=== PATIENT | male | born 1970 | race Asian ===

== ENCOUNTER 2017-04-27 14:20 | Inpatient (IN) | payer OTHER ==
[~2017-04-27] VITALS: Ht 172.7 cm; Wt 90.8 kg
[2017-04-27] VITALS (9 sets, daily range): BP systolic 89–102; BP diastolic 59–75; PULSE 81–92; RESP 12–24; TEMP 98; Ht 172.7 cm; Wt 90.8 kg
[2017-04-27] MEDS ORDERED: NITROGLYCERIN 2% 1 GM OINT PKT TD STA (14:48)
[2017-04-27] MEDS ORDERED: ASPIRIN 81 MG TAB PO STA (14:48)
[2017-04-27 14:55] LABS: ADD SCAN DIFF NO
[2017-04-27 14:58] LABS: BASOPHIL # 0.1 10^3/ul (0.0-0.1); BASOPHILS % 0.5 % (0.0-2.0); EOSINOPHILS % 0.2 % (0.0-7.0); HEMATOCRIT 43.8 % (42.0-52.0); HEMOGLOBIN 15.5 g/dl (14.0-18.0); LYMPHOCYTES # 1.2 10^3/ul (0.8-2.9); LYMPHOCYTES % 11.6 % (15.0-51.0); MEAN CORPUSCULAR HEMOGLOBIN 27.6 pg (29.0-33.0); MEAN CORPUSCULAR HGB CONC 35.4 g/dl (32.0-37.0); MEAN CORPUSCULAR VOLUME 77.9 fl (82.0-101.0); MEAN PLATELET VOLUME 10.5 fl (7.4-10.4); MONOCYTE # 0.8 10^3/ul (0.3-0.9); MONOCYTES % 7.6 % (0.0-11.0); NEUTROPHIL # 7.9 10^3/ul (1.6-7.5); NEUTROPHILS % 79.7 % (39.0-77.0); PLATELET COUNT 330 10^3/UL (140-415); RED BLOOD COUNT 5.62 10^6/ul (4.70-6.10)
[2017-04-27] MEDS ORDERED: NITROGLYCERIN (SL) 0.4 MG TAB SL PRN ×2 (15:00→17:00)
--- NOTE | 2017-04-27 15:14 | RADRPT ---
PROCEDURE: XR Chest. CLINICAL INDICATION: Chest pain TECHNIQUE: Single frontal view of the chest was obtained COMPARISON: None FINDINGS: The heart is enlarged. The thoracic aorta is calcified. There is a left-sided AICD in place. There is mild pulmonary vascular congestion. There is no pleural effusion or pneumothorax. RPTAT: AA IMPRESSION: Mild cardiomegaly. Mild pulmonary vascular congestion. Calcified aorta consistent with atherosclerotic disease. .Efraín Trimble MD, MD Date Time Electronically viewed and signed by .Efraín Trimble MD, MD on 04/27/2017 15:14 .S/
[2017-04-27 15:22] LABS: CALCIUM 9.6 mg/dl (8.4-10.2); CREATININE 0.9 mg/dl (0.61-1.24); POTASSIUM 3.2 mmol/L (3.5-5.1)
[2017-04-27] MEDS ORDERED: AMIO200T2 PO (15:22)
[2017-04-27] MEDS ORDERED: FER325 PO (15:22)
[2017-04-27] MEDS ORDERED: GLIP5TAB13 PO (15:23)
[2017-04-27] MEDS ORDERED: POTASSIUM CHLORIDE (SR) 20 MEQ TAB PO STA (15:31)
[2017-04-27] MEDS ORDERED: INSULIN LISPRO 100 UNIT/ML VIAL SC STA (15:31)
[2017-04-27 15:34] LABS: INR 1.24; PROTIME 15.7 Sec (12.2-14.2); PT RATIO 1.2
[2017-04-27 15:35] LABS: TROPONIN-I 2.77 ng/ml (0.00-0.12)
[2017-04-27] MEDS ORDERED: ERGO500037 PO (15:36)
[2017-04-27] MEDS ORDERED: FURO40TA4 PO (15:37)
[2017-04-27] MEDS ORDERED: ALDS PO (15:37)
[2017-04-27] MEDS ORDERED: ACET250T22 PO (15:37)
[2017-04-27] MEDS ORDERED: POTA20TA15 PO (15:38)
[2017-04-27] MEDS ORDERED: METO2.5T12 PO (15:38)
[2017-04-27] MEDS ORDERED: METF500T4 PO (15:39)
[2017-04-27] MEDS ORDERED: CARV3.1260 PO (15:39)
[2017-04-27] MEDS ORDERED: DABI150C PO (15:40)
[2017-04-27] MEDS ORDERED: ONDANSETRON 4 MG INJ IV PRN ×2 (16:00→17:00)
[2017-04-27] MEDS ORDERED: ACETAMINOPHEN 325 MG TAB PO PRN ×2 (16:00→17:00)
[2017-04-27] MEDS ORDERED: MIDAZOLAM 1 MG/ML 2 ML INJ ONE ×2 (16:03→17:17)
[2017-04-27] MEDS ORDERED: LIDOCAINE 1% (MDV) 20 ML INJ ONE (16:03)
[2017-04-27] MEDS ORDERED: IODIXANOL LOCM 50 ML BTL ONE (16:03)
[2017-04-27] MEDS ORDERED: IODIXANOL LOCM 100 ML BTL ONE ×3 (16:03→21:26)
[2017-04-27] MEDS ORDERED: HEPARIN 1000 UNITS/ML 10 ML INJ ONE ×3 (16:03→19:57)
[2017-04-27] MEDS ORDERED: FENTAnyl 50 MCG/ML VIAL ONE (16:03)
[2017-04-27] MEDS ORDERED: NITROGLYCERIN (IC) 100 MCG/ML INJ ONE (16:04)
[2017-04-27] MEDS ORDERED: VERAPAMIL 5 MG INJ ONE ×2 (16:04→18:39)
[2017-04-27] MEDS ORDERED: IOHEXOL 350MG/ML 50 ML BTL ONE (16:15)
--- NOTE | 2017-04-27 16:42 | ERA ---
ER Documentation Chief Complaint Date/Time DATE: 04/27/17 TIME: 16:41 Chief Complaint palpitations with cp x couple of hours HPI Patient is a 46-year-old male with coronary disease, hypertension, and diabetes who presents with palpitations and shortness of breath. The patient said that he felt symptoms in the left side of his chest but said that he did not have pain and is not feeling it now. He said that he started 2 weeks ago with discomfort and shortness of breath with mild exertion that would last 10-15 minutes and then go away. However recently it started lasting 2 hours. The patient walked into the emergency department. He does not currently have a primary doctor. His director of construction is Dr. Foster. ROS All systems reviewed and are negative except as per history of present illness. Medications Home Meds Reported Medications Dabigatran Etexilate Mesylate* (Pradaxa*) 150 Mg Capsule, 150 MG PO BID, CAP 04/27/17 Metformin Hcl* (Metformin Hcl*) 500 Mg Tablet, 500 MG PO WITH BREAKFAST DINNE, # 60 TAB 04/27/17 Carvedilol* (Carvedilol*) 3.125 Mg Tablet, 3.125 MG PO BID, #60 TAB 04/27/17 Potassium Chloride* (K-Dur*) 20 Meq Tab.prt.sr, 20 MEQ PO BID, TAB.SA 04/27/17 Metolazone* (Metolazone*) 2.5 Mg Tablet, 2.5 MG PO BID, TAB 04/27/17 Furosemide* (Furosemide*) 40 Mg Tablet, 40 MG PO BID, TAB 04/27/17 Acetazolamide* (Acetazolamide*) 250 Mg Tablet, 250 MG PO BID, #60 TAB 04/27/17 Spironolactone* (Aldactone*) 5 Mg/Ml (COMPOUNDED) Susp, 5 MG PO BID for 30 Days , BOTTLE (COMPOUNDED) 04/27/17 Ergocalciferol (Vitamin D2) (VITAMIN D2) 50,000 Unit Capsule, 85852 UNIT PO Q7D , CAP PATENT TAKE Q TUESDAY OR Tuesday04/27/17 Glipizide* (Glipizide*) 5 Mg Tablet, 5 MG PO AC BREAKFAST, TAB 04/27/17 Ferrous Sulfate* (Ferrous Sulfate*) 325 Mg Tabec, 325 MG PO BID, TAB 04/27/17 Amiodarone Hcl* (Amiodarone Hcl*) 200 Mg Tablet, 200 MG PO DAILY, #30 TAB 04/27/17 Allergies Allergies: Uncoded Allergies: UNKNOWN ANTIBIOTIC (Allergy, Intermediate, 04/27/17) PMhx/Soc History of Surgery: Yes (CABG,ABLATION,PACEMAKER) Anesthesia Reaction: No Hx Neurological Disorder: No Hx Respiratory Disorders: No Hx Cardiac Disorders: Yes (HTN) Hx Psychiatric Problems: No Hx Miscellaneous Medical Probl: Yes (DM) Hx Alcohol Use: No Hx Substance Use: No Hx Tobacco Use: Yes (16 yrs ago) Smoking Status: Former smoker FmHx Family History: diabetes Physical Exam Vitals Vital Signs Date Time Temp Pulse Resp B/P Pulse Ox O2 Delivery O2 Flow Rate FiO2 04/27/17 16:30 83 23 73/54 100 Nasal Cannula 2.0 04/27/17 16:11 82 23 57/44 100 Nasal Cannula 2.0 04/27/17 16:08 98.0 82 23 76/54 100 Nasal Cannula 2.0 04/27/17 14:59 Nasal Cannula 2 04/27/17 14:24 98.1 93 20 108/71 97 Physical Exam Const: No acute distress Head: Atraumatic Eyes: Normal Conjunctiva ENT: Normal External Ears, Nose and Mouth. Neck: Full range of motion..~ No meningismus. Resp: Clear to auscultation bilaterally Cardio: Regular rate and rhythm, no murmurs Abd: Soft, non tender, non distended. Normal bowel sounds Skin: No petechiae or rashes Back: No midline or flank tenderness Ext: No cyanosis, or edema Neur: Awake and alert Psych: Normal Mood and Affect Result Diagram: 04/27/17 1450 04/27/17 1450 Results 24 hrs Laboratory Tests Test 04/27/17 14:50 04/27/17 16:08 White Blood Count 10.010^3/ul Red Blood Count 5.6210^6/ul Hemoglobin 15.5g/dl Hematocrit 43.8% Mean Corpuscular Volume 77.9fl Mean Corpuscular Hemoglobin 27.6pg Mean Corpuscular Hemoglobin Concent 35.4g/dl Red Cell Distribution Width 13.0% Platelet Count 53775^3/UL Mean Platelet Volume 10.5fl Neutrophils % 79.7% Lymphocytes % 11.6% Monocytes % 7.6% Eosinophils % 0.2% Basophils % 0.5% Nucleated Red Blood Cells % 0.0/100WBC Neutrophils # 7.910^3/ul Lymphocytes # 1.210^3/ul Monocytes # 0.810^3/ul Eosinophils # 0.010^3/ul Basophils # 0.110^3/ul Nucleated Red Blood Cells # 0.010^3/ul Prothrombin Time 15.7Sec Prothrombin Time Ratio 1.2 INR International Normalized Ratio 1.24 Activated Partial Thromboplast Time 49.0Sec Sodium Level 122mmol/L Potassium Level 3.2mmol/L Chloride Level 82mmol/L Carbon Dioxide Level 27mmol/L Anion Gap 16 Blood Urea Nitrogen 23mg/dl Creatinine 0.90mg/dl Glucose Level 463mg/dl Calcium Level 9.6mg/dl Troponin I 2.770ng/ml Bedside Glucose 344mg/dL Current Medications Medications (Trade) Dose Ordered Sig/Genna Route PRN Reason Start Time Stop Time Status Last Admin Dose Admin Aspirin (Aspirin) 162 mg ONCE STAT PO 04/27/17 14:48 04/27/17 14:49 DC 04/27/17 14:52 Nitroglycerin (Nitroglycerin 2% Oint) 1 inch ONCE STAT TD 04/27/17 14:48 04/27/17 14:49 DC 04/27/17 14:52 Nitroglycerin (Nitroglycerin (Sl Tab) 0.4 Mg) 1 tab Q5M UP TO 3 DOSES PRN SL CHEST PAIN 04/27/17 15:00 Insulin Human Lispro (Humalog) 15 unit ONCE STAT SC 04/27/17 15:31 04/27/17 15:32 DC 04/27/17 16:08 Potassium Chloride (Klor-Con 20) 40 meq ONCE STAT PO 04/27/17 15:31 04/27/17 15:32 DC 04/27/17 16:10 Ondansetron HCl (Zofran Inj) 4 mg ER BRIDGE PRN IV NAUSEA AND/OR VOMITING 04/27/17 16:00 04/28/17 15:59 Acetaminophen 650 mg 650 mg ER BRIDGE PRN PO MILD PAIN/FEVER 04/27/17 16:00 04/28/17 15:59 Sodium Chloride 500 ml @ 500 mls/hr Q1H ONCE IV 04/27/17 17:00 04/27/17 17:59 UNV Sodium Chloride (NS) 1,000 ml @ 75 mls/hr [id number] IV 04/27/17 17:00 04/28/17 06:19 UNV Atorvastatin Calcium (Lipitor) 40 mg HS PO 04/27/17 21:00 UNV Aspirin 81 mg 81 mg DAILY PO 04/28/17 09:00 UNV Sodium Chloride 1,000 ml @ 1,000 mls/hr Q1H ONCE IV 04/27/17 17:00 04/27/17 17:59 UNV Sodium Chloride (NS) 1,000 ml @ 1,000 mls/hr Q1H STAT IV 04/27/17 16:48 04/27/17 17:47 Procedures/MDM EKG #1 read by me: Rate/Rhythm: Regular rate and rhythm at a normal rate Intervals: Normal Impression: ST elevations in aVR and V1, depression in lead I EKG #2 read by me: Rate/Rhythm: Regular rate and rhythm at a normal rate Intervals: Normal Impression: ST elevations in aVR and V1, depression in lead I PROCEDURE: XR Chest. CLINICAL INDICATION: Chest pain TECHNIQUE: Single frontal view of the chest was obtained COMPARISON: None FINDINGS: The heart is enlarged. The thoracic aorta is calcified. There is a left-sided AICD in place. There is mild pulmonary vascular congestion. There is no pleural effusion or pneumothorax. RPTAT: AA IMPRESSION: Mild cardiomegaly. Mild pulmonary vascular congestion. Calcified aorta consistent with atherosclerotic disease. .Efraín Trimble MD, MD Date Time Electronically viewed and signed by .Efraín Trimble MD, on 04/27/2017 15: 14 Patient is a 46-year-old male with multiple cardiac risk factors who presents with symptoms consistent with unstable angina. The patient had an EKG done at 1441 and a code STEMI was called upon reviewing this EKG. I spoke with Dr. Jiménez at 1446 and showed him the EKG. We spoke at 1450 and decided together to cancel the code STEMI as the EKG is not entirely consistent with STEMI and the patient is not having any active chest pain at this time. Dr. Foster was actually in the emergency department at the time and recognized the patient is at his patient and he will consult on the patient as well. The patient was found to have a troponin that was elevated at 2.[address] Foster wanted to take the patient to the cardiac Bearing Inspector but unfortunately the patient took his Pradaxa today and at this point the risks outweigh the benefits. He will plan on going to the cardiac Bearing Inspector tomorrow. The patient was given aspirin and nitroglycerin. He had a drop in his blood pressure so nitroglycerin was removed and 1 L of normal saline was given. The patient has hyperglycemia but no diabetic ketoacidosis at this time. He was given 15 units of subcutaneous Humalog. The patient was found to have hypokalemia with a potassium of 3.2 and was given potassium by mouth. He has hyponatremia with a sodium of 122. The patient will be admitted to the care of Dr. Torres as he has [employer] insurance. The patient will be admitted to the intensive care unit. Critical Care: Time: 40 minutes excluding all billable procedures. Treatments/Evaluations: Close monitoring and treatment of unstable vital signs, cardiorespiratory, and neurologic status, while maintaining tight balance of fluid, respiratory, and cardiac interventions. Departure Diagnosis: Primary Impression: NSTEMI (non-ST elevated myocardial infarction) Additional Impressions: Palpitations Hyponatremia Chest pain Qualified Code: I20.9 - Chest pain due to myocardial ischemia, unspecified ischemic chest pain type Hypokalemia Condition: Critical FREDY GILLETTE MD Apr 27, 2017 16:42
[2017-04-27] MEDS ORDERED: SOD CHLORIDE 0.9% 1,000 ML IV SCH ×2 (16:47→17:00)
[2017-04-27] MEDS ORDERED: SOD CHLORIDE 0.9% 1,000 ML IV STA (16:48)
--- NOTE | 2017-04-27 16:54 | CONS ---
Date/Time of Note Date/Time of Note DATE: 04/27/17 TIME: 16:42 Assessment/Plan Assessment/Plan Additional Assessment/Plan Non-ST elevation TX Coronary artery disease with history of CABG Ischemic cardiomyopathy with ejection fraction 35% Diabetes, uncontrolled Hypokalemia Atrial fibrillation/flutter, paroxysmal, on anticoagulation -Patient with initially chest pain with exertion that was worsening today. Troponins are elevated. Patient is currently chest pain-free. Patient did take Pradaxa this morning. Given patient on anticoagulation and currently chest pain-free, would wait until tomorrow to proceed with cardiac catheterization. Would recommend aggressive diabetes management, IV fluids as able to tolerate given evidence of hyperglycemia, hypovolemia and abnormal electrolytes. Would continue aspirin and statin therapy. Will start Plavix. Consultation Date/Type/Reason Admit Date/Time Type of Consultation: cv Reason for Consultation Chest pressure and elevated troponin Hx of Present Illness This is a 46-year-old male with past medical history of coronary artery disease status post bypass, paroxysmal atrial flutter status post ablation, ischemic cardiomyopathy with ejection fraction 35% who presents to the emergency room secondary to exertional chest pain off and on over the past few days. Symptoms worsen today so he came to the emergency room for evaluation and care. After having nitroglycerin placed, he denies any further chest pain or shortness of breath. Denies any dizziness or lightheadedness. Denies any abdominal pain. 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 Exam/Review of Systems Vital Signs Vitals Vital Signs Date Time Temp Pulse Resp B/P Pulse Ox O2 Delivery O2 Flow Rate FiO2 04/27/17 16:30 83 23 73/54 100 Nasal Cannula 2.0 04/27/17 16:08 98.0 Exam No apparent distress Constitutional: alert, oriented Head: normocephalic Neck: supple Respiratory: clear to auscultation, normal air movement Cardiovascular: other (S1-S2 heard), regular rate and rhythm Gastrointestinal: bowel sounds, non-tender, soft Extremities: other (No significant edema) Results Result Diagram: 04/27/17 1450 04/27/17 1450 Results 24 hrs Laboratory Tests Test 04/27/17 14:50 04/27/17 16:08 White Blood Count 10.0 Red Blood Count 5.62 Hemoglobin 15.5 Hematocrit 43.8 Mean Corpuscular Volume 77.9 L Mean Corpuscular Hemoglobin 27.6 L Mean Corpuscular Hemoglobin Concent 35.4 Red Cell Distribution Width 13.0 Platelet Count 330 Mean Platelet Volume 10.5 H Neutrophils % 79.7 H Lymphocytes % 11.6 L Monocytes % 7.6 Eosinophils % 0.2 Basophils % 0.5 Nucleated Red Blood Cells % 0.0 Neutrophils # 7.9 H Lymphocytes # 1.2 Monocytes # 0.8 Eosinophils # 0.0 Basophils # 0.1 Nucleated Red Blood Cells # 0.0 Prothrombin Time 15.7 H Prothrombin Time Ratio 1.2 INR International Normalized Ratio 1.24 Activated Partial Thromboplast Time 49.0 H Sodium Level 122 L Potassium Level 3.2 L Chloride Level 82 L Carbon Dioxide Level 27 Anion Gap 16 Blood Urea Nitrogen 23 H Creatinine 0.90 Glucose Level 463 *H Calcium Level 9.6 Troponin I 2.770 *H Bedside Glucose 344 H Procedures Procedures ECG demonstrates sinus rhythm at 90 bpm, lateral ST depressions Zaire Foster DO Apr 27, 2017 16:54
[2017-04-27] MEDS ORDERED: SOD CHLORIDE 0.9% 500 ML IV ONE (17:00)
[2017-04-27] MEDS ORDERED: MAGNESIUM HYDROXIDE 30ML CUP PO PRN (17:00)
[2017-04-27] MEDS ORDERED: NACL 0.9% 3 ML SYG IV SCH (17:00)
[2017-04-27] MEDS ORDERED: BISACODYL 10 MG SUPP PR PRN (17:00)
[2017-04-27] MEDS ORDERED: SOD CHLORIDE 0.9% 1,000 ML IV ONE (17:00)
[2017-04-27] MEDS ORDERED: ACCU-CHEK XX SCH (17:00)
[2017-04-27] MEDS ORDERED: INSULIN HUMAN REGULAR 100 UNIT in SOD CHLORIDE 0.9% 99 ML IV SCH (17:00)
[2017-04-27] MEDS ORDERED: DEXTROSE 50% 50 ML SYRINGE IV PRN ×4 (17:00→23:45)
[2017-04-27] MEDS ORDERED: Discontinue all previous diabetes medication and insulin orders. XX ONE (17:00)
[2017-04-27] MEDS ORDERED: Treatment of Hypoglycemia: XX SCH (17:00)
[2017-04-27] MEDS ORDERED: DOCUSATE SODIUM 100 MG CAP PO PRN (17:00)
[2017-04-27] MEDS: morphine 2 MG INJ IV PRN ×3 (17:15→23:56)
[2017-04-27] MEDS ORDERED: CLOPIDOGREL 300 MG TAB ONE (17:43)
--- NOTE | 2017-04-27 20:09 | HP ---
DATE OF ADMISSION: 04/27/2017 CREW MESS ATTENDANT: Dr. Zaire Foster from cardiology. CHIEF COMPLAINT ON ADMISSION: Palpitations. HISTORY OF PRESENT ILLNESS: This is a 46-year-old male with a history of coronary artery disease, s tatus post stenting at age 31, followed by bypass surgery at age 41, and just last year had a pacema ker placed, followed by Dr. Foster's group as an outpatient, [facility] for the past couple of weeks. The patient reports that at the [facility] it would last a few minutes and go away and then it started being sustained and today was whitmore stained up to 2 hours of palpitations and discomfort. In the emergency department, he was evaluated . He had a first EKG. There was a questionable STEMI. The STEMI code was called and subsequently canceled, as his EKG was equivocal. Subsequently, his troponin came back elevated at 2.77. He was also noted to be hyperglycemic with a glucose of 463. Sodium of 122. The patient is diabetic. It is unclear how compliant, he is with his medications. The patient was seen by Dr. Foster who evalua andrey him. At first, he was going to take him to the dairy and food laboratory assistant; however, the patient reported that he did take Pradaxa this morning. He was chest pain free and much more comfortable with systolic blood pressures in the upper 100s. At that time, the angiogram was canceled due to the fact that he took Pradaxa and rescheduled for tomorrow. However, during his ER course, the patient started being hyp otensive. His nitro paste was removed at that time. He remained asymptomatic for a while, then sta rted complaining of chest pain and chest pressure, left-sided, radiating down his arm, and the sensa tion of palpitations also. Another EKG was done stat and the patient is found to be in ST elevation UT a little more clearly on this second EKG. A STEMI code was activated. The patient is in the ca th lab currently. He is receiving 2 liters normal saline bolus for hypotension. Blood pressure in the 70s. He will be started on insulin drip periprocedure for blood sugar control. Therefore, he w ill be in the ICU. The patient does have significant cardiac disease and now with acute UT. There is a possibility he may need a balloon pump. He is currently critically ill. He will be admitted t o the intensive care unit post-procedure. ALLERGIES: THE PATIENT REPORTED THAT HE WAS ALLERGIC TO AN ANTIBIOTIC, BUT WAS NOT ABLE TO TELL US WHICH ONE. PAST MEDICAL HISTORY: 1. Severe coronary artery disease, status post stenting at age 31, status post bypass surgery at ag e 41, status post pacer last year. 2. Ischemic cardiomyopathy, ejection fraction 35%. 3. Diabetes mellitus, uncontrolled. 4. Paroxysmal atrial fibrillation, atrial flutter on anticoagulation with Pradaxa. 5. Hyperlipidemia. 6. Hypertension. PAST SURGICAL HISTORY: 1. Status post atrial flutter ablation. 2. Status post angioplasty in the past. 3. Status post coronary bypass surgery. 4. Status post pacemaker placement 1 year ago. SOCIAL HISTORY: The patient is a former smoker. He no longer smokes or drinks alcohol. He works [employer]. OUTPATIENT MEDICATIONS: 1. Pradaxa 150 mg p.o. b.i.d. 2. Ferrous sulfate 325 mg p.o. b.i.d. 3. Amiodarone 200 mg p.o. daily. 4. Carvedilol 3.125 mg p.o. b.i.d. 5. Aldactone 5 mg p.o. b.i.d. 6. Furosemide 40 mg p.o. b.i.d. 7. Metolazone 2.5 mg p.o. b.i.d. 8. K-Dur 20 mg p.o. b.i.d. 9. Acetazolamide 250 mg p.o. b.i.d. 10. Glipizide 5 mg p.o. q.a.c. with breakfast. 11. Metformin 500 mg p.o. b.i.d. 12. Vitamin D2 at 50,000 units q.7 days. PHYSICAL EXAMINATION: VITAL SIGNS: Temperature is 98.0, heart rate of 89, sinus rhythm; respiratory rate of 16, blood pre ssure 72/54, the patient is saturating 100% on 2 liters nasal cannula. GENERAL: He is alert and oriented x4. He is in mild distress, as he is having chest pain and in a Trendelenburg position, which is not comfortable. HEENT: Pupils are equally round and reactive to light. Extraocular muscles are intact. Anicteric sclerae. NECK: No JVD, no thyromegaly noted. HEART: Regular rate and rhythm. No murmur, rubs, or gallops. LUNGS: Clear to auscultation bilaterally. ABDOMEN: Soft, nontender, nondistended. Bowel sounds are present. EXTREMITIES: No edema, clubbing, or cyanosis. NEUROLOGIC: Grossly intact. Moving all 4 extremities. LABORATORY DATA: White blood cell count is 10.0, hemoglobin 15.5, hematocrit 42.8, platelet count 3 30. Chemistry with a sodium of 122, potassium of 3.2, chloride 82, bicarbonate 27, BUN 23, creatini ne 0.90, glucose was 463 down to 344, calcium of 9.6. Troponin 2.77. INR is 1.22. EKG: Second EK G consistent with ST elevation UT. RADIOLOGICAL DATA: Chest x-ray shows mild cardiomegaly, mild pulmonary vascular congestion. ASSESSMENT AND PLAN: This is a 46-year-old male with: 1. ST elevation myocardial infarction, currently slightly hemodynamically unstable with hypotension . Therefore, the patient is going to the dairy and food laboratory assistant right away. He is at a bleeding risk because he did take Pradaxa this morning; however, at this point, it is emergency intervention. He will be adm itted to the intensive care unit post-procedure. He is going to the dairy and food laboratory assistant with Dr. Foster. 2. Diabetes mellitus with uncontrolled blood sugar. Will check hemoglobin A1c. Insulin drip has b een ordered for periprocedure. Further adjustment will be done once the patient is more stable. 3. Hypertension. Currently, he is hypotensive. Therefore, all his diuretics are discontinued and he is receiving IV fluids currently for feared cardiogenic shock. 4. Hyperlipidemia. Check fasting lipid panel in a.m. and resume statin therapy. 5. Paroxysmal atrial fibrillation. He is on amiodarone. We will reassess post-procedure. Hold Pr adaxa for now. 6. Ischemic cardiomyopathy with ejection fraction of 35%. Holding all diuretics. Will reassess ej ection fraction post-procedure. Resume diuretics when needed and any additional medication will be also resumed once his blood pressure is stable. 7. Hypokalemia. Has been repleted in the emergency department. Repeat BMP pending. 8. Hyponatremia with corrected blood sugar of approximately 127. The patient is also hypovolemic. Continue IV fluids. Will put him on insulin drip for blood sugar control and monitor his sodium le sebas along with his renal function. 9. Prophylaxis: Sequential compression devices to lower extremities for deep vein thrombosis proph ylaxis. Pepcid for gastrointestinal prophylaxis. DISPOSITION: The patient is on his way to the dairy and food laboratory assistant at this point for emergent angiogram and ang ioplasty. Dictated By: SILAS CASTRO/ELIAS Conf#: [id number] DID#: [id number]
[2017-04-27] MEDS: FERROUS SULFATE (EC) 325 MG TAB PO SCH (21:00)
[2017-04-27] MEDS ORDERED: ATORVASTATIN 40 MG TAB PO SCH (21:00)
[2017-04-27] MEDS ORDERED: FUROSEMIDE 40 MG INJ ONE (21:41)
[2017-04-27] MEDS: NORepinephrine 8MG/250 ML (PMX 250 ML IV SCH (22:00)
[2017-04-27 22:02] LABS: CALCIUM 7.6 mg/dl (8.4-10.2); CREATININE 0.63 mg/dl (0.61-1.24); POTASSIUM 2.8 mmol/L (3.5-5.1)
[2017-04-27 22:04] LABS: CK-MB 2.31 ng/ml (0.0-2.4); TROPONIN-I 2.58 ng/ml (0.00-0.12)
--- NOTE | 2017-04-27 22:08 | CARRPT ---
DATE OF PROCEDURE: 04/27/2017 PROCEDURES: 1. Left heart catheterization. 2. Right and left coronary angiogram as well as bypass grafts. 3. Interpretation and supervision of right and left coronary angiogram as well as bypass grafts. 4. Left subclavian angiogram. 5. Left carotid angiogram. 6. Complex endovascular procedure of a chronic total occlusion of the left subclavian with balloon angioplasty and stenting with a 7 x 27 [employer] balloon expandable stent. 7. Left ventricular pressure measurements. 8. Left radial artery access, right femoral artery access, right femoral vein access. PATIENT HISTORY: This is a 46-year-old male with history of coronary artery disease and CABG, who p resents with non-ST elevation NE, hypotension, and chest pain. FINDINGS: HEMODYNAMICS: 1. LV pressure was 116/25 with an EDP of 33. 2. Aortic on pullback was 109/71. CORONARY ANATOMY: 1. Left main is occluded at the ostium. 2. RCA is a medium caliber vessel and appears nondominant. There is a proximal 80% and then a mid 100% subtotal occlusion with collaterals going to the LAD from the RCA. 3. BARRERA to LAD is patent with no significant disease. 4. LAD is a medium caliber vessel and occluded at the ostium. The mid to distal vessel is seen via the BARRERA injection with 20% distal stenosis. 5. Circumflex is a dominant vessel and seen via the saphenous vein injection. It was occluded at t he ostium at the left main. The distal vessel demonstrates an AV groove circumflex with 90% mid julee nosis. Obtuse marginals are patent with 30% diffuse stenosis. 6. Saphenous vein graft to the left PDA is patent with no significant disease. 7. Left subclavian is occluded at the ostium. Collaterals are seen feeding the proximal subclavian from the left carotid. 8. Left carotid artery is patent. Feeding collaterals to the left subclavian. DESCRIPTION OF PROCEDURE: The patient was brought to the engineer [facility] laboratory after informed consent. The archie ent with active chest pain and hypotension. Initially, a 6-Jordanian sheath with ultrasound guidance w as used to the right femoral artery. Given the patient's hypotension, we placed a 5-Jordanian femoral vein sheath and started IV Levophed for blood pressure assistance. We initially used a 6-Jordanian JL4 catheter to engage the left main, which demonstrated 100% occlusion of the left main. We next used a 6-Jordanian JR4 catheter and engaged the RCA and angiogram was performed. We next engaged the left subclavian, which demonstrated it was 100% occluded. We next engaged the left carotid, which demons trated that it was feeding collaterals the subclavian and the BARRERA was patent. The occlusion of the left subclavian was proximal to the BARRERA takeoff. We next attempted to use an LCB catheter to enga ge the saphenous vein graft, but unsuccessful. We next used a pigtail catheter and did an abdominal aortic root shot, which demonstrated a patent saphenous vein graft going to the left PDA. We next used a 6-Jordanian JR4 catheter to engage the saphenous vein graft and angiogram was performed. We nex t got left radial access and a 6-Jordanian sheath was placed. A JR4 catheter was taken up to the subcl susana occlusion. This did demonstrate that subclavian was occluded, as mentioned previously, with t he occlusion being proximal to the BARRERA takeoff. There was possible evidence of tract seen in the c hronic total occlusion. Heparin was used for anticoagulation. We switched for a 6-Jordanian JR4 guide catheter. Using the V-14 wire and with significant difficulty, we were able to cross the [employer] lesio n. We did serial balloon inflations from 2.0 mm to 3.0 mm to 5 mm to open the [employer]. We also then us ed a 6-Jordanian JR4 catheter from the right femoral artery approach to engage left subclavian to do an angiogram as well. Unfortunately, we were unable to use any stent from the radial approach for the subclavian stenosis. We next upsized to 7-Jordanian sheath in the right femoral artery and a long she ath was used to the left subclavian. We once again used a V-18 wire now for crossing the [employer] from t hat approach. With difficulty, we were able to cross. We next did balloon inflation. We next used a 7 x 27 mm balloon expandable stent and inflated in the ostium of the left subclavian to the proxi mal segment prior to the BARRERA takeoff. The balloon was expanded. There was an excellent angiograph ic result with no evidence of dissection. There was brisk flow seen in the left subclavian. We did also use our radial JR4 catheter to make sure that we were not covering the BARRERA takeoff. Next, al l our wires and catheters were removed. We switched out for a 7-Jordanian sheath and a right groin shanna t was done. We next used a Perclose closure device in the right femoral artery. Left radial sheath was removed and a TR band was placed. The patient's pressor requirements were slowly decreasing at that time. The femoral vein sheath was left in place because the patient still required IV pressor s. This was an extremely complex case requiring multiple access points and the [employer] left subclavian with requirement of IV pressors. DIAGNOSES: 1. Non-ST elevation myocardial infarction. 2. Coronary artery disease. 3. Peripheral arterial disease with occlusion of the left subclavian. COMPLICATIONS: None. BLOOD LOSS: Minimal. RECOMMENDATIONS: Dual antiplatelet therapy. Wean off IV Lopressor as tolerated. Aggressive diabet es and risk factor management. Dictated By: MARINA PENNINGTON/ELIAS Conf#: [id number] DID#: [id number]
[2017-04-27] MEDS ORDERED: GLUCOSE GEL 15 GRAM TUBE BUCCAL PRN (23:45)
[2017-04-27] MEDS ORDERED: GLUCAGON 1 MG INJ IM PRN (23:45)
[2017-04-27] MEDS ORDERED: GLUCOSE GEL 15 GRAM TUBE PO PRN ×2 (23:45)
[2017-04-28] VITALS (76 sets, daily range): BP systolic 72–134; BP diastolic 59–115; PULSE 81–106; RESP 4–38
[2017-04-28] MEDS ORDERED: POTASSIUM CHLORIDE (SR) 20 MEQ TAB PO ONE
[2017-04-28] MEDS ORDERED: INSULIN GLARGINE [LANtus] 3 ML PEN SC ONE
[2017-04-28] MEDS ORDERED: MAGNESIUM SULFATE 1 GM/D5W 100 ML IVPB ONE
[2017-04-28] MEDS ORDERED: ACCU-CHEK XX SCH ×2 (02:00)
[2017-04-28 06:31] LABS: ADD SCAN DIFF NO
[2017-04-28 06:38] LABS: BASOPHILS % 0.3 % (0.0-2.0); EOSINOPHILS % 0.1 % (0.0-7.0); HEMOGLOBIN 13.9 g/dl (14.0-18.0); LYMPHOCYTES # 0.8 10^3/ul (0.8-2.9); LYMPHOCYTES % 5.8 % (15.0-51.0); MEAN CORPUSCULAR HEMOGLOBIN 27.1 pg (29.0-33.0); MEAN CORPUSCULAR HGB CONC 33.9 g/dl (32.0-37.0); MEAN CORPUSCULAR VOLUME 80.1 fl (82.0-101.0); MONOCYTE # 0.9 10^3/ul (0.3-0.9); MONOCYTES % 6.8 % (0.0-11.0); NEUTROPHIL # 11.9 10^3/ul (1.6-7.5); NEUTROPHILS % 86.7 % (39.0-77.0); PLATELET COUNT 309 10^3/UL (140-415); RED BLOOD COUNT 5.12 10^6/ul (4.70-6.10); RED CELL DISTRIBUTION WIDTH 13.2 % (11.5-14.5); WHITE BLOOD COUNT 13.7 10^3/ul (4.8-10.8)
[2017-04-28 07:27] LABS: ALBUMIN/GLOBULIN RATIO 1.33; BILIRUBIN,INDIRECT 0.9 mg/dl (0-1.1); BILIRUBIN,TOTAL 0.9 mg/dl (0.2-1.3); CALCIUM 8.3 mg/dl (8.4-10.2); CHOL/HDL RATIO 8.5 RATIO; CREATININE 0.7 mg/dl (0.61-1.24); MAGNESIUM 2.3 mg/dl (1.7-2.5); POTASSIUM 3.1 mmol/L (3.5-5.1)
[2017-04-28] MEDS ORDERED: INSULIN ASPART [NOVOLOG] 3 ML PEN SC SCH ×2 (07:35)
[2017-04-28] MEDS: NORepinephrine 8MG/250 ML (PMX 250 ML IV SCH (07:35)
[2017-04-28] MEDS ORDERED: FUROSEMIDE 20 MG INJ IV ONE (08:02)
[2017-04-28] MEDS ORDERED: POTASSIUM CHLORIDE (SR) 20 MEQ TAB PO STA ×2 (08:02→14:22)
[2017-04-28] MEDS: INSULIN ASPART [NOVOLOG] 3 ML PEN SC SCH ×6 (08:13→21:33)
[2017-04-28] MEDS: CLOPIDOGREL 75 MG TAB PO SCH (08:50)
[2017-04-28] MEDS: AMIODARONE 200 MG TAB PO SCH (08:51)
[2017-04-28] MEDS: FAMOTIDINE 20 MG TAB PO SCH ×3 (08:51→21:28)
[2017-04-28] MEDS: FERROUS SULFATE (EC) 325 MG TAB PO SCH ×2 (08:51→21:29)
[2017-04-28] MEDS: ASPIRIN 81 MG TAB PO SCH (08:51)
--- NOTE | 2017-04-28 10:05 | PN ---
Date/Time of Note Date/Time of Note DATE: 04/28/17 TIME: 09:39 Assessment/Plan VTE Prophylaxis VTE Prophylaxis Intervention: SCD's Lines/Catheters IV Catheter Type (from Nrsg): Central Line Central line still needed: Yes (for IV access ) Urinary Cath still in place: No Assessment/Plan Assessment/Plan 46-year-old male with: 1. Non ST elevation myocardial infarction, s/p PCI overnight, patient with severe PAD and Left subclavian occlusion, s/p complex endovascular procedure of a chronic total occlusion of the left subclavian with balloon angioplasty and stenting with a 7 x 27 [employer] balloon expandable stent. On dual antiplatelets Better hemodynamics but still requiring pressors Levo Follow up further Cardio recs today 2. Uncontrolled Diabetes mellitus with A1c above hospital range On Lantus, premeal Novolog and SSI, ADA diet DM education 3. Hypertension. Currently, still hypotensive requiring pressors but also being diuresed for CHF exacerb. so off IVF Holding BP meds 4. Hyperlipidemia. Needs better control, Statins. 5. Paroxysmal atrial fibrillation. Continuing amiodarone, resume Pradaxa when Ok per Cardiology. 6. Ischemic cardiomyopathy with ejection fraction of 35%. Back on Lasix Monitor electrolytes and UOP 7. Hypokalemia. Repleting. Repeat BMP at noon today. 8. Hyponatremia. Improving, on Diuretics. Better BG control. Monitor Na and renal function. Prophylaxis: Sequential compression devices to lower extremities for deep vein thrombosis prophylaxis. Pepcid for gastrointestinal prophylaxis. DISPOSITION: ICU, titrating Levo down. Subjective 24 Hr Interval Summary Free Text/Dictation Patient better this AM, however currently on Levo for BP support DM uncontrolled Exam/Review of Systems Vital Signs Vitals Vital Signs Date Time Temp Pulse Resp B/P Pulse Ox O2 Delivery O2 Flow Rate FiO2 04/28/17 08:00 98.2 90 20 97/73 96 Nasal Cannula 4.0 Intake and Output 04/27/17 04/27/17 04/28/17 15:00 23:00 07:00 Intake Total 249.375 ml 438.125 ml Output Total 500 ml 300 ml Balance -250.625 ml 138.125 ml Exam Constitutional: alert, oriented, well developed Respiratory: clear to auscultation, normal air movement Cardiovascular: nl pulses, regular rate and rhythm Gastrointestinal: non-tender, soft Musculoskeletal: nl extremities to inspection, other (no edema, clubbing or cyanosis ) Extremities: normal pulses Neurological: RN TRANSITIONAL CARE II-XII intact, nl mental status, nl speech, nl strength Results Result Diagram: 04/28/17 0518 04/28/17 0518 Results 24 hrs Laboratory Tests Test 04/27/17 14:50 04/27/17 16:08 04/27/17 21:10 04/28/17 01:16 White Blood Count 10.0 Red Blood Count 5.62 Hemoglobin 15.5 Hematocrit 43.8 Mean Corpuscular Volume 77.9 L Mean Corpuscular Hemoglobin 27.6 L Mean Corpuscular Hemoglobin Concent 35.4 Red Cell Distribution Width 13.0 Platelet Count 330 Mean Platelet Volume 10.5 H Neutrophils % 79.7 H Lymphocytes % 11.6 L Monocytes % 7.6 Eosinophils % 0.2 Basophils % 0.5 Nucleated Red Blood Cells % 0.0 Neutrophils # 7.9 H Lymphocytes # 1.2 Monocytes # 0.8 Eosinophils # 0.0 Basophils # 0.1 Nucleated Red Blood Cells # 0.0 Prothrombin Time 15.7 H Prothrombin Time Ratio 1.2 INR International Normalized Ratio 1.24 Activated Partial Thromboplast Time 49.0 H Sodium Level 122 L 126 L Potassium Level 3.2 L 2.8 *L Chloride Level 82 L 95 #L Carbon Dioxide Level 27 24 Anion Gap 16 10 # Blood Urea Nitrogen 23 H 15 Creatinine 0.90 0.63 Glucose Level 463 *H 238 #H Calcium Level 9.6 7.6 L Troponin I 2.770 *H 2.580 *H Bedside Glucose 344 H 257 H Creatine Kinase 91 Creatine Kinase Index 2.5 Creatinine Kinase MB (Mass) 2.31 Test 04/28/17 03:08 04/28/17 05:18 04/28/17 06:40 04/28/17 08:01 Bedside Glucose 325 H 301 H 271 H White Blood Count 13.7 #H Red Blood Count 5.12 Hemoglobin 13.9 L Hematocrit 41.0 L Mean Corpuscular Volume 80.1 L Mean Corpuscular Hemoglobin 27.1 L Mean Corpuscular Hemoglobin Concent 33.9 Red Cell Distribution Width 13.2 Platelet Count 309 Mean Platelet Volume 11.0 H Neutrophils % 86.7 H Lymphocytes % 5.8 L Monocytes % 6.8 Eosinophils % 0.1 Basophils % 0.3 Nucleated Red Blood Cells % 0.0 Neutrophils # 11.9 H Lymphocytes # 0.8 Monocytes # 0.9 Eosinophils # 0.0 Basophils # 0.0 Nucleated Red Blood Cells # 0.0 Sodium Level 129 L Potassium Level 3.1 L Chloride Level 95 L Carbon Dioxide Level 25 Anion Gap 12 Blood Urea Nitrogen 12 Creatinine 0.70 Glucose Level 248 H Hemoglobin A1c Calcium Level 8.3 L Magnesium Level 2.3 Total Bilirubin 0.9 Direct Bilirubin 0.00 Indirect Bilirubin 0.9 Aspartate Amino Transf (AST/SGOT) 68 H Alanine Aminotransferase (ALT/SGPT) 65 Alkaline Phosphatase 142 H Total Protein 7.0 Albumin 4.0 Globulin 3.00 Albumin/Globulin Ratio 1.33 Triglycerides Level 161 H Cholesterol Level 196 LDL Cholesterol, Calculated 141 HDL Cholesterol 23 L Cholesterol/HDL Ratio 8.5 Medications Medications Current Medications Aspirin (Aspirin) 81 mg DAILY PO Last administered on 04/28/17 08:51; Admin Dose 81 MG; Start 04/28/17 at 09:00 Amiodarone HCl (Cordarone) 200 mg DAILY PO Last administered on 04/28/17 08:51 ; Admin Dose 200 MG; Start 04/28/17 at 09:00 Ferrous Sulfate (Ferrous Sulfate (Ec)) 325 mg BID PO Last administered on 08:51; Admin Dose 325 MG; Start 04/27/17 at 21:00 Ondansetron HCl (Zofran Inj) 4 mg Q6H PRN IV NAUSEA AND/OR VOMITING; Start at 17:00 Nitroglycerin (Nitroglycerin (Sl Tab) 0.4 Mg) 1 tab Q5M PRN SL CHEST PAIN; Start 04/27/17 at 17:00 Acetaminophen (Tylenol Tab) 650 mg Q6H PRN PO PAIN LEVEL 1-3 OR FEVER; Start at 17:00 Morphine Sulfate (morphine) 2 mg Q4H PRN IV PAIN LEVEL 7-10 Last administered on 04/27/17 17:15; Admin Dose 2 MG; Start 04/27/17 at 17:00 Docusate Sodium (Colace) 100 mg Q12H PRN PO CONSTIPATION; Start 04/27/17 at 17: 00 Magnesium Hydroxide (Milk Of Mag) 30 ml DAILY PRN PO CONSTIPATION; Start at 17:00 Bisacodyl (Dulcolax Supp) 10 mg DAILY PRN [place] CONSTIPATION; Start 04/27/17 at 17 :00 Famotidine (Pepcid) 20 mg Q12 PO Last administered on 04/28/17 08:51; Admin Dose 20 MG; Start 04/27/17 at 21:00 Clopidogrel Bisulfate (plaVIX) 75 mg DAILY PO Last administered on 04/28/17 08 :50; Admin Dose 75 MG; Start 04/28/17 at 09:00 Atorvastatin Calcium 80 mg 80 mg HS PO Last administered on 04/28/17 00:00; Admin Dose 80 MG; Start 04/27/17 at 22:30 Norepinephrine (Levophed) 250 ml @ 1.875 mls/ hr TITRATE IV Last administered on 04/28/17 07:35; Admin Dose 13.125 MLS/HR; Start 04/27/17 at 22:00 Miscellaneous Information 1 ea NOTE XX ; Start 04/27/17 at 23:45 Glucose (Glutose) 15 gm Q15M PRN PO DECREASED GLUCOSE; Start 04/27/17 at 23:45 Glucose (Glutose) 22.5 gm Q15M PRN PO DECREASED GLUCOSE; Start 04/27/17 at 23: 45 Dextrose (D50w Syringe) 25 ml Q15M PRN IV DECREASED GLUCOSE; Start 04/27/17 at 23:45 Dextrose (D50w Syringe) 50 ml Q15M PRN IV DECREASED GLUCOSE; Start 04/27/17 at 23:45 Glucagon (Glucagen) 1 mg Q15M PRN IM DECREASED GLUCOSE; Start 04/27/17 at 23:45 Glucose (Glutose) 15 gm Q15M PRN BUCCAL DECREASED GLUCOSE; Start 04/27/17 at 23 :45 Diagnostic Test (Pha) (Accu-Chek) 1 ea 02 XX ; Start 04/29/17 at 02:00 SILAS PRO Apr 28, 2017 09:49
--- NOTE | 2017-04-28 11:26 | RADRPT ---
PROCEDURE: XR Chest. CLINICAL INDICATION: Status post CO. STEMI TECHNIQUE: Single frontal view of the chest was obtained. COMPARISON: None FINDINGS: A mediastinotomy was performed. A dual chamber cardiac pacemaker is identified with electrode leads in the right atrium and right ventricle. The bony elements are normal. The heart is enlarged. The cardiomediastinal silhouette and hilar structures are normal. The pulmonary vasculature is increase d. There are atherosclerotic calcifications in the aortic arch. There are bilateral perihilar infil trates extending to the periphery of the lungs which worsened when compared to 04/27/2017. Bilatera l pleural effusions are present. IMPRESSION: 1. Congestive heart failure with worsening interstitial pulmonary edema and bilateral pleural effusi ons. 2. Status post median sternotomy for coronary bypass surgery. 3. Dual chamber AICD device with electrode leads at the level of the right atrium and right ventric le. 4. Atherosclerotic vascular disease. RPTAT:AAJJ Physician Doreen Date Time Electronically viewed and signed by Rakan Sanz Physician on 04/28/2017 11:26 JENNIFER/
[2017-04-28 12:45] LABS: CALCIUM 8.3 mg/dl (8.4-10.2); CREATININE 0.75 mg/dl (0.61-1.24); POTASSIUM 3.2 mmol/L (3.5-5.1)
[2017-04-28] MEDS ORDERED: NORepinephrine 8MG/250 ML (PMX 250 ML IV SCH (13:00)
--- NOTE | 2017-04-28 14:15 | CONS ---
Date/Time of Note Date/Time of Note DATE: 04/28/17 TIME: 14:13 Assessment/Plan Assessment/Plan Additional Assessment/Plan Non-ST elevation MD status post intervention to left subclavian proximal to BARRERA takeoff Coronary artery disease with history of CABG Ischemic cardiomyopathy with history of ICD Diabetes, uncontrolled Hypokalemia Atrial fibrillation/flutter, paroxysmal, on anticoagulation -Patient still on minimal IV pressor, continue to titrate off with goal of SBP greater than 85 and her map above 60. Continue dual antiplatelet therapy. Restart anticoagulation. Continue statin therapy. No beta-franny or NIRAV inhibitor at the current time given borderline blood pressure and requiring IV pressor. Maintain potassium above 4.0 and magnesium above 2.0. If the patient remains off IV pressor, remove venous femoral sheath. Consultation Date/Type/Reason Admit Date/Time Apr 27, 2017 at 21:55 Initial Consult Date Type of Consultation: cv 24 HR Interval Summary Free Text/Dictation Patient denies any chest pain, shortness of breath is much better. Denies headache or dizziness. Exam/Review of Systems Vital Signs Vitals Vital Signs Date Time Temp Pulse Resp B/P Pulse Ox O2 Delivery O2 Flow Rate FiO2 04/28/17 13:15 98 19 95/74 92 Nasal Cannula 5.0 04/28/17 12:00 98.6 Intake and Output 04/27/17 04/27/17 04/28/17 15:00 23:00 07:00 Intake Total 249.375 ml 438.125 ml Output Total 500 ml 700 ml Balance -250.625 ml -261.875 ml Exam No apparent distress Constitutional: alert, oriented, well developed Head: normocephalic Neck: supple Respiratory: other (Coarse breath sounds bilaterally, no wheezing) Cardiovascular: other (S1-S2 heard), regular rate and rhythm Gastrointestinal: bowel sounds, non-tender, other (No guarding), soft Extremities: other (No edema, right groin is soft, no hematoma, venous sheath still present. Left wrist with no hematoma, +2 radial pulse) Results Result Diagram: 04/28/17 0518 04/28/17 1205 Results 24 hrs Laboratory Tests Test 04/27/17 14:50 04/27/17 16:08 04/27/17 21:10 04/28/17 01:16 White Blood Count 10.0 Red Blood Count 5.62 Hemoglobin 15.5 Hematocrit 43.8 Mean Corpuscular Volume 77.9 L Mean Corpuscular Hemoglobin 27.6 L Mean Corpuscular Hemoglobin Concent 35.4 Red Cell Distribution Width 13.0 Platelet Count 330 Mean Platelet Volume 10.5 H Neutrophils % 79.7 H Lymphocytes % 11.6 L Monocytes % 7.6 Eosinophils % 0.2 Basophils % 0.5 Nucleated Red Blood Cells % 0.0 Neutrophils # 7.9 H Lymphocytes # 1.2 Monocytes # 0.8 Eosinophils # 0.0 Basophils # 0.1 Nucleated Red Blood Cells # 0.0 Prothrombin Time 15.7 H Prothrombin Time Ratio 1.2 INR International Normalized Ratio 1.24 Activated Partial Thromboplast Time 49.0 H Sodium Level 122 L 126 L Potassium Level 3.2 L 2.8 *L Chloride Level 82 L 95 #L Carbon Dioxide Level 27 24 Anion Gap 16 10 # Blood Urea Nitrogen 23 H 15 Creatinine 0.90 0.63 Glucose Level 463 *H 238 #H Calcium Level 9.6 7.6 L Troponin I 2.770 *H 2.580 *H Bedside Glucose 344 H 257 H Creatine Kinase 91 Creatine Kinase Index 2.5 Creatinine Kinase MB (Mass) 2.31 Test 04/28/17 03:08 04/28/17 05:18 04/28/17 06:40 04/28/17 08:01 Bedside Glucose 325 H 301 H 271 H White Blood Count 13.7 #H Red Blood Count 5.12 Hemoglobin 13.9 L Hematocrit 41.0 L Mean Corpuscular Volume 80.1 L Mean Corpuscular Hemoglobin 27.1 L Mean Corpuscular Hemoglobin Concent 33.9 Red Cell Distribution Width 13.2 Platelet Count 309 Mean Platelet Volume 11.0 H Neutrophils % 86.7 H Lymphocytes % 5.8 L Monocytes % 6.8 Eosinophils % 0.1 Basophils % 0.3 Nucleated Red Blood Cells % 0.0 Neutrophils # 11.9 H Lymphocytes # 0.8 Monocytes # 0.9 Eosinophils # 0.0 Basophils # 0.0 Nucleated Red Blood Cells # 0.0 Sodium Level 129 L Potassium Level 3.1 L Chloride Level 95 L Carbon Dioxide Level 25 Anion Gap 12 Blood Urea Nitrogen 12 Creatinine 0.70 Glucose Level 248 H Hemoglobin A1c Calcium Level 8.3 L Magnesium Level 2.3 Total Bilirubin 0.9 Direct Bilirubin 0.00 Indirect Bilirubin 0.9 Aspartate Amino Transf (AST/SGOT) 68 H Alanine Aminotransferase (ALT/SGPT) 65 Alkaline Phosphatase 142 H Total Protein 7.0 Albumin 4.0 Globulin 3.00 Albumin/Globulin Ratio 1.33 Triglycerides Level 161 H Cholesterol Level 196 LDL Cholesterol, Calculated 141 HDL Cholesterol 23 L Cholesterol/HDL Ratio 8.5 Test 04/28/17 11:33 04/28/17 12:05 Bedside Glucose 320 H Sodium Level 128 L Potassium Level 3.2 L Chloride Level 94 L Carbon Dioxide Level 27 Anion Gap 10 Blood Urea Nitrogen 13 Creatinine 0.75 Glucose Level 258 H Calcium Level 8.3 L Medications Medications Current Medications Aspirin (Aspirin) 81 mg DAILY PO Last administered on 04/28/17 08:51; Admin Dose 81 MG; Start 04/28/17 at 09:00 Amiodarone HCl (Cordarone) 200 mg DAILY PO Last administered on 04/28/17 08:51 ; Admin Dose 200 MG; Start 04/28/17 at 09:00 Ferrous Sulfate (Ferrous Sulfate (Ec)) 325 mg BID PO Last administered on 08:51; Admin Dose 325 MG; Start 04/27/17 at 21:00 Ondansetron HCl (Zofran Inj) 4 mg Q6H PRN IV NAUSEA AND/OR VOMITING; Start at 17:00 Nitroglycerin (Nitroglycerin (Sl Tab) 0.4 Mg) 1 tab Q5M PRN SL CHEST PAIN; Start 04/27/17 at 17:00 Acetaminophen (Tylenol Tab) 650 mg Q6H PRN PO PAIN LEVEL 1-3 OR FEVER; Start at 17:00 Morphine Sulfate (morphine) 2 mg Q4H PRN IV PAIN LEVEL 7-10 Last administered on 04/27/17 17:15; Admin Dose 2 MG; Start 04/27/17 at 17:00 Docusate Sodium (Colace) 100 mg Q12H PRN PO CONSTIPATION; Start 04/27/17 at 17: 00 Magnesium Hydroxide (Milk Of Mag) 30 ml DAILY PRN PO CONSTIPATION; Start at 17:00 Bisacodyl (Dulcolax Supp) 10 mg DAILY PRN [place] CONSTIPATION; Start 04/27/17 at 17 :00 Famotidine (Pepcid) 20 mg Q12 PO Last administered on 04/28/17 08:51; Admin Dose 20 MG; Start 04/27/17 at 21:00 Clopidogrel Bisulfate (plaVIX) 75 mg DAILY PO Last administered on 04/28/17 08 :50; Admin Dose 75 MG; Start 04/28/17 at 09:00 Atorvastatin Calcium (Lipitor) 80 mg HS PO Last administered on 04/28/17 00:00 ; Admin Dose 80 MG; Start 04/27/17 at 22:30 Miscellaneous Information 1 ea NOTE XX ; Start 04/27/17 at 23:45 Glucose (Glutose) 15 gm Q15M PRN PO DECREASED GLUCOSE; Start 04/27/17 at 23:45 Glucose (Glutose) 22.5 gm Q15M PRN PO DECREASED GLUCOSE; Start 04/27/17 at 23: 45 Dextrose (D50w Syringe) 25 ml Q15M PRN IV DECREASED GLUCOSE; Start 04/27/17 at 23:45 Dextrose (D50w Syringe) 50 ml Q15M PRN IV DECREASED GLUCOSE; Start 04/27/17 at 23:45 Glucagon (Glucagen) 1 mg Q15M PRN IM DECREASED GLUCOSE; Start 04/27/17 at 23:45 Glucose (Glutose) 15 gm Q15M PRN BUCCAL DECREASED GLUCOSE; Start 04/27/17 at 23 :45 Diagnostic Test (Pha) (Accu-Chek) 1 ea 02 XX ; Start 04/29/17 at 02:00 Insulin Glargine 18 unit 18 unit DAILY@08 SC ; Start 04/29/17 at 08:00 Norepinephrine (Levophed) 250 ml @ 1.875 mls/ hr TITRATE IV ; Start 04/28/17 at 13:00 Zaire Foster DO Apr 28, 2017 14:15
--- NOTE | 2017-04-28 15:47 | RADRPT ---
Vent Rate: 90 bpm RR Interval: 0 msec OR Interval: 204 msec QRS Duration: 100 msec QT Interval: 388 msec QTC Interval: 474 msec P-R-T [place]: 71 - 47 - 0 degrees Normal sinus rhythm Possible Left atrial enlargement Marked ST abnormality, possible inferolateral subendocardial injury Abnormal ECG Electronically Signed By: Zaire Foster [id number]
--- NOTE | 2017-04-28 15:59 | RADRPT ---
Echocardiogram Report Patient Name: VIJAYA LAURA Gender: Male Date: 1970 Study Date: 28-Apr-2017 Health Insurance Specialist: Noah Farah [facility] Location: [facility] Ref. Physician: ZAIRE FOSTER Quality: Good Procedures: Transthoracic echocardiogram with complete 2D, M-Mode, and doppler examination. Indications: Myocardial Infarction. Congestive Heart Failure. 2D/M Mode Doppler Measurement Value Normal Ranges Measurement Value Normal Ranges LVIDd 2D 6.2 3.5 - 5.6 cm AV Peak Yandel 1.0 m/sec LVIDs 2D 5.1 2.1 - 4.1 cm AV Peak PG 4.0 mmHg FS 2D 18.1 % LVOT Peak Yandel 0.9 m/sec LVPWd 2D 1.0 0.6 - 1.1 cm LVOT Peak PG 3.0 mmHg IVSd 2D 1.1 0.6 - 1.1 cm MV E Peak Yandel 1.2 m/sec IVS/LVPW 2D 1.1 MV Decel Time 70 msec AoR Diam 2D 2.9 2.0 - 3.7 cm TR Peak Yandel 3.8 m/sec LA/Ao 2D 2 0 - 1 TR Peak PG 57.0 mmHg EDV 2D 236.0 cm3 RVSP 60.0 mmHg ESV 2D 130.0 cm3 LA Dimen 2D 4.6 2.3 - 4.0 cm Findings Left Ventricle: Mild concentric left ventricular hypertrophy. Mild enlargement of left ventricle cavity. Severe left ventricular systolic dysfunction. Ejection fraction is visually estimated at 25 %. Tissue Doppler/Mitral Doppler indices are consistent with restrictive physiology with markedly elevated left atrial pressure (Stage IIIIV diastolic dysfunction). Right Ventricle: Normal right ventricular systolic function. Linear artifact in right ventricle suggestive of catheter, pacer lead, or ICD lead. Left Atrium: There is mild enlargement of left atrium. Right Atrium: The right atrium is normal in size. Mitral Valve: Mitral valve leaflets appear mildly thickened. Mild mitral annular calcification. Mild mitral valve regurgitation. Aortic Valve: No significant aortic stenosis or insufficiency. Aortic cusps appear mildly calcified. Tricuspid Valve: Normal appearance of the tricuspid valve. Estimated peak PA systolic pressure 60 mmHg. There is mild to moderate tricuspid regurgitation. Pulmonic Valve: Normal pulmonic valve appearance. There is mild pulmonic regurgitation. Pericardium: Normal pericardium with no significant pericardial effusion. Aorta: Normal aortic root. IVC: Normal size and normal respiratory collapse consistent with normal right atrial pressure. Conclusions Mild concentric left ventricular hypertrophy. Mild enlargement of left ventricle cavity. Severe left ventricular systolic dysfunction. Ejection fraction is visually estimated at 25 %. Tissue Doppler/Mitral Doppler indices are consistent with restrictive physiology with markedly elevated left atrial pressure (Stage III-IV diastolic dysfunction). Normal right ventricular systolic function. There is mild enlargement of left atrium. The right atrium is normal in size. Mild mitral valve regurgitation. No significant aortic stenosis or insufficiency. There is mild to moderate tricuspid regurgitation. There is mild pulmonic regurgitation. Normal pericardium with no significant pericardial effusion. Electronically Signed By: Zaire Foster 28-Apr-2017 15:58:36 -0700 Patient Name: VIJAYA LAURA Study Date: 28-Apr-2017 [id number]
[2017-04-28] MEDS: FUROSEMIDE 20 MG INJ IV SCH (17:54)
[2017-04-28] MEDS ORDERED: INSULIN GLARGINE [LANtus] 3 ML PEN SC SCH (20:00)
[2017-04-28] MEDS: ATORVASTATIN 40 MG TAB PO SCH ×2 (21:29)
[2017-04-28] MEDS: DABIGATRAN 150 MG CAP PO SCH (21:29)
[2017-04-29] VITALS (41 sets, daily range): BP systolic 55–128; BP diastolic 23–85; PULSE 73–126; RESP 11–35
[2017-04-29] MEDS: ACCU-CHEK XX SCH (02:00)
[2017-04-29] MEDS ORDERED: ACCU-CHEK XX SCH (02:00)
[2017-04-29] MEDS: FUROSEMIDE 20 MG INJ IV SCH (05:32)
[2017-04-29 07:12] LABS: ADD SCAN DIFF NO
[2017-04-29 07:26] LABS: BASOPHIL # 0.1 10^3/ul (0.0-0.1); BASOPHILS % 0.4 % (0.0-2.0); EOSINOPHILS % 0.2 % (0.0-7.0); HEMATOCRIT 37.9 % (42.0-52.0); HEMOGLOBIN 13.1 g/dl (14.0-18.0); LYMPHOCYTES # 1.1 10^3/ul (0.8-2.9); LYMPHOCYTES % 8.7 % (15.0-51.0); MEAN CORPUSCULAR HEMOGLOBIN 27.7 pg (29.0-33.0); MEAN CORPUSCULAR HGB CONC 34.6 g/dl (32.0-37.0); MEAN CORPUSCULAR VOLUME 80.1 fl (82.0-101.0); MEAN PLATELET VOLUME 10.5 fl (7.4-10.4); MONOCYTE # 0.9 10^3/ul (0.3-0.9); MONOCYTES % 7.3 % (0.0-11.0); NEUTROPHIL # 10.4 10^3/ul (1.6-7.5); NEUTROPHILS % 82.9 % (39.0-77.0); PLATELET COUNT 273 10^3/UL (140-415); RED BLOOD COUNT 4.73 10^6/ul (4.70-6.10); RED CELL DISTRIBUTION WIDTH 13.3 % (11.5-14.5); WHITE BLOOD COUNT 12.6 10^3/ul (4.8-10.8)
[2017-04-29] MEDS: AMIODARONE 200 MG TAB PO SCH (07:26)
[2017-04-29 07:44] LABS: PHOSPHORUS 2.9 mg/dl (2.5-4.9)
[2017-04-29] MEDS: INSULIN ASPART [NOVOLOG] 3 ML PEN SC SCH ×7 (08:06→23:22)
[2017-04-29 08:08] LABS: ALBUMIN 3.8 g/dl (3.3-4.9); ALBUMIN/GLOBULIN RATIO 1.11; CALCIUM 8.8 mg/dl (8.4-10.2); CREATININE 0.74 mg/dl (0.61-1.24); TOTAL PROTEIN 7.2 g/dl (6.1-8.1)
[2017-04-29] MEDS: FERROUS SULFATE (EC) 325 MG TAB PO SCH ×2 (08:16→21:00)
[2017-04-29] MEDS: ASPIRIN 81 MG TAB PO SCH (08:16)
[2017-04-29] MEDS: FAMOTIDINE 20 MG TAB PO SCH ×3 (08:16→22:38)
[2017-04-29] MEDS: INSULIN GLARGINE [LANtus] 3 ML PEN SC SCH (08:16)
[2017-04-29] MEDS: CLOPIDOGREL 75 MG TAB PO SCH (08:16)
[2017-04-29] MEDS: DABIGATRAN 150 MG CAP PO SCH ×2 (08:17→22:39)
[2017-04-29] MEDS ORDERED: POTASSIUM CHLORIDE (SR) 20 MEQ TAB PO STA ×2 (09:19→10:06)
--- NOTE | 2017-04-29 09:42 | PN ---
Date/Time of Note Date/Time of Note DATE: 04/29/17 TIME: 09:33 Assessment/Plan VTE Prophylaxis VTE Prophylaxis Intervention: other (Pradaxa) Lines/Catheters [facility] [place] Urinary Cath still in place: No Assessment/Plan Assessment/Plan 46-year-old male with: 1. Non ST elevation myocardial infarction, s/p PCI overnight, patient with severe PAD and Left subclavian occlusion, s/p complex endovascular procedure of a chronic total occlusion of the left subclavian with balloon angioplasty and stenting with a 7 x 27 [employer] balloon expandable stent. On dual antiplatelets and off Levo x 18 hrs at least, better hemodynamics Replete K Follow up further Cardio recs today 2. Uncontrolled Diabetes mellitus with A1c above hospital range On Lantus, premeal Novolog and SSI, ADA diet , adding Tradjenta DM education ongoing 3. Hypertension. Currently, BP better, tolerating diuresis. On fluid restriction also Holding all other BP meds 4. Hyperlipidemia. Needs better control, continue statins. 5. Paroxysmal atrial fibrillation. Continuing amiodarone, back on Pradaxa when Ok per Cardiology. 6. Ischemic cardiomyopathy with ejection fraction of 35%. Continue on Lasix Monitor electrolytes and UOP 7. Hypokalemia. Repleting. Repeat BMP later today again and replete prn. 8. Hyponatremia. Improving, on Diuretics and fluid restriction Better BG control. Monitor Na and renal function. Prophylaxis: Sequential compression devices to lower extremities for deep vein thrombosis prophylaxis. Pepcid for gastrointestinal prophylaxis. DISPOSITION: transfer to telemetry today Subjective 24 Hr Interval Summary Free Text/Dictation Patient doing well today Ambulating in hallway and no chest pain, on RA and BP stable Transferring to Tele, repleting K Exam/Review of Systems Vital Signs Vitals Vital Signs Date Time Temp Pulse Resp B/P Pulse Ox O2 Delivery O2 Flow Rate FiO2 04/29/17 09:15 94 21 96/63 95 Room Air 04/29/17 08:00 98.3 04/29/17 08:00 5.0 Intake and Output 04/28/17 04/28/17 04/29/17 15:00 23:00 07:00 Intake Total 742.500 ml 1280 ml 500 ml Output Total 1000 ml 1650 ml 650 ml Balance -257.500 ml -370 ml -150 ml Exam Constitutional: alert, oriented, well developed Respiratory: diminished breath sounds (mildly decreased breath sounds at bases ), normal air movement Cardiovascular: nl pulses, regular rate and rhythm Gastrointestinal: non-tender, soft Musculoskeletal: nl extremities to inspection, other (no edema, clubbing or cyanosis ) Extremities: normal pulses Neurological: 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1 L Mean Corpuscular Hemoglobin 27.7 L Mean Corpuscular Hemoglobin Concent 34.6 Red Cell Distribution Width 13.3 Platelet Count 273 Mean Platelet Volume 10.5 H Neutrophils % 82.9 H Lymphocytes % 8.7 L Monocytes % 7.3 Eosinophils % 0.2 Basophils % 0.4 Nucleated Red Blood Cells % 0.0 Neutrophils # 10.4 H Lymphocytes # 1.1 Monocytes # 0.9 Eosinophils # 0.0 Basophils # 0.1 Nucleated Red Blood Cells # 0.0 Sodium Level 130 L Potassium Level 3.0 L Chloride Level 93 L Carbon Dioxide Level 26 Anion Gap 14 Blood Urea Nitrogen 15 Creatinine 0.74 Glucose Level 213 Calcium Level 8.8 Phosphorus Level 2.9 Magnesium Level 2.0 Total Bilirubin 1.0 Direct Bilirubin 0.00 Indirect Bilirubin 1.0 Aspartate Amino Transf (AST/SGOT) 109 #H Alanine Aminotransferase (ALT/SGPT) 83 H Alkaline Phosphatase 191 H Total Protein 7.2 Albumin 3.8 Globulin 3.40 H Albumin/Globulin Ratio 1.11 Medications Medications Current Medications Aspirin (Aspirin) 81 mg DAILY PO Last administered on 04/29/17t 08:16; Admin Dose 81 MG; Start 04/28/17 at 09:00 Amiodarone HCl (Cordarone) 200 mg DAILY PO Last administered on 04/29/17 07:26 ; Admin Dose 200 MG; Start 04/28/17 at 09:00 Ferrous Sulfate (Ferrous Sulfate (Ec)) 325 mg BID PO Last administered on 08:16; Admin Dose 325 MG; Start 04/27/17 at 21:00 Ondansetron HCl (Zofran Inj) 4 mg Q6H PRN IV NAUSEA AND/OR VOMITING; Start at 17:00 Nitroglycerin (Nitroglycerin (Sl Tab) 0.4 Mg) 1 tab Q5M PRN SL CHEST PAIN; Start 04/27/17 at 17:00 Acetaminophen (Tylenol Tab) 650 mg Q6H PRN PO PAIN LEVEL 1-3 OR FEVER; Start at 17:00 Morphine Sulfate (morphine) 2 mg Q4H PRN IV PAIN LEVEL 7-10 Last administered on 04/27/17 17:15; Admin Dose 2 MG; Start 04/27/17 at 17:00 Docusate Sodium (Colace) 100 mg Q12H PRN PO CONSTIPATION; Start 04/27/17 at 17: 00 Magnesium Hydroxide (Milk Of Mag) 30 ml DAILY PRN PO CONSTIPATION; Start at 17:00 Bisacodyl (Dulcolax Supp) 10 mg DAILY PRN [place] CONSTIPATION; Start 04/27/17 at 17 :00 Famotidine (Pepcid) 20 mg Q12 PO Last administered on 04/29/17 08:16; Admin Dose 20 MG; Start 04/27/17 at 21:00 Clopidogrel Bisulfate (plaVIX) 75 mg DAILY PO Last administered on 04/29/17 08 :16; Admin Dose 75 MG; Start 04/28/17 at 09:00 Atorvastatin Calcium (Lipitor) 80 mg HS PO Last administered on 04/28/17 21:29 ; Admin Dose 80 MG; Start 04/27/17 at 22:30 Miscellaneous Information 1 ea NOTE XX ; Start 04/27/17 at 23:45 Glucose (Glutose) 15 gm Q15M PRN PO DECREASED GLUCOSE; Start 04/27/17 at 23:45 Glucose (Glutose) 22.5 gm Q15M PRN PO DECREASED GLUCOSE; Start 04/27/17 at 23: 45 Dextrose (D50w Syringe) 25 ml Q15M PRN IV DECREASED GLUCOSE; Start 04/27/17 at 23:45 Dextrose (D50w Syringe) 50 ml Q15M PRN IV DECREASED GLUCOSE; Start 04/27/17 at 23:45 Glucagon (Glucagen) 1 mg Q15M PRN IM DECREASED GLUCOSE; Start 04/27/17 at 23:45 Glucose (Glutose) 15 gm Q15M PRN BUCCAL DECREASED GLUCOSE; Start 04/27/17 at 23 :45 Diagnostic Test (Pha) (Accu-Chek) 1 ea 02 XX Last administered on 04/29/17 02: 00; Admin Dose 1 EA; Start 04/29/17 at 02:00 Insulin Glargine (Lantus) 18 unit DAILY@08 SC Last administered on 04/29/17 08 :16; Admin Dose 18 UNIT; Start 04/29/17 at 08:00 Dabigatran 150 mg 150 mg BID PO Last administered on 04/29/17 08:17; Admin Dose 150 MG; Start 04/28/17 at 21:00 Potassium Chloride (KCl 40 MEQ/250 ML NS) 250 ml @ 62.5 mls/hr ONCE ONCE IVPB ; Start 04/29/17 at 09:45; Stop 04/29/17 at 13:44 SILAS PRO Apr 29, 2017 09:42
[2017-04-29] MEDS ORDERED: POTASSIUM CHLORIDE 250 ML IVPB ONE (09:45)
[2017-04-29] MEDS: LINAGLIPTIN 5 MG TABLET PO SCH (10:02)
--- NOTE | 2017-04-29 10:24 | RADRPT ---
PROCEDURE: XR Chest. CLINICAL INDICATION: Shortness of breath. TECHNIQUE: Single frontal view. COMPARISON: 04/28/2017. FINDINGS: There is interstitial and air space disease bilaterally consistent with pulmonary edema, slightly im proved. The lungs are otherwise clear. The heart is enlarged. There are sternal wires. There is a left-sided dual lead permanent pacemake r/internal cardiac defibrillator. Small bilateral pleural effusions are unchanged. There is no pneumothorax. IMPRESSION: 1. Slightly improved appearance of the lungs. 2. No other change from 04/28/2017. RPTAT: QQ .David Gonzalez MD, MD Date Time Electronically viewed and signed by .David Gonzalez MD, on 04/29/2017 10:24 .R/
--- NOTE | 2017-04-29 11:33 | CONS ---
Date/Time of Note Date/Time of Note DATE: 04/29/17 TIME: 11:28 Assessment/Plan Assessment/Plan Additional Assessment/Plan Non-ST elevation IL status post intervention with balloon angioplasty and stenting to left subclavian proximal to BARRERA takeoff Coronary artery disease with history of CABG Ischemic cardiomyopathy with ejection fraction 25% and history of ICD Diabetes, uncontrolled Hypokalemia Atrial fibrillation/flutter, paroxysmal, on anticoagulation -Patient with improvement in blood pressure. Would restart Coreg and titrate as blood pressure permits. Change Lasix to p.o. Supplement potassium to maintain above 4.0 and magnesium above 2.0. Start NIRAV inhibitor next 24 hours if blood pressure remains stable as well as renal function. I did have an extensive discussion with our patient regarding importance of medication compliance and diet and diabetes management. Would continue Plavix and anticoagulation and stop aspirin upon discharge. Continue statin therapy. Consultation Date/Type/Reason Admit Date/Time Apr 27, 2017 at 21:55 Type of Consultation: cv 24 HR Interval Summary Free Text/Dictation Patient feeling much better. Ambulating without shortness of breath or chest pain. Denies dizziness or lightheadedness. Exam/Review of Systems Vital Signs Vitals Vital Signs Date Time Temp Pulse Resp B/P Pulse Ox O2 Delivery O2 Flow Rate FiO2 04/29/17 10:40 92 04/29/17 10:15 11 111/74 94 Room Air 04/29/17 08:00 98.3 04/29/17 08:00 5.0 Intake and Output 04/28/17 04/28/17 04/29/17 15:00 23:00 07:00 Intake Total 742.500 ml 1280 ml 500 ml Output Total 1000 ml 1650 ml 650 ml Balance -257.500 ml -370 ml -150 ml Exam No apparent distress, sitting in chair Constitutional: alert, oriented Head: normocephalic Neck: supple Respiratory: other (Coarse breath sounds bilaterally, no wheezing) Cardiovascular: other (S1-S2 heard), regular rate and rhythm Gastrointestinal: bowel sounds, non-tender, soft Extremities: edema (Trace), other (Right groin is soft, +2 femoral pulse, no hematoma felt.) Results Result Diagram: 04/29/17 0545 04/29/17 0545 Results 24 hrs Laboratory Tests Test 04/28/17 11:33 04/28/17 12:05 04/28/17 17:44 04/28/17 21:27 Bedside Glucose 320 H 202 207 Sodium Level 128 L Potassium Level 3.2 L Chloride Level 94 L Carbon Dioxide Level 27 Anion Gap 10 Blood Urea Nitrogen 13 Creatinine 0.75 Glucose Level 258 H Calcium Level 8.3 L Test 04/29/17 01:56 04/29/17 05:45 04/29/17 07:41 Bedside Glucose 273 H 238 H White Blood Count 12.6 H Red Blood Count 4.73 Hemoglobin 13.1 L Hematocrit 37.9 L Mean Corpuscular Volume 80.1 L Mean Corpuscular Hemoglobin 27.7 L Mean Corpuscular Hemoglobin Concent 34.6 Red Cell Distribution Width 13.3 Platelet Count 273 Mean Platelet Volume 10.5 H Neutrophils % 82.9 H Lymphocytes % 8.7 L Monocytes % 7.3 Eosinophils % 0.2 Basophils % 0.4 Nucleated Red Blood Cells % 0.0 Neutrophils # 10.4 H Lymphocytes # 1.1 Monocytes # 0.9 Eosinophils # 0.0 Basophils # 0.1 Nucleated Red Blood Cells # 0.0 Sodium Level 130 L Potassium Level 3.0 L Chloride Level 93 L Carbon Dioxide Level 26 Anion Gap 14 Blood Urea Nitrogen 15 Creatinine 0.74 Glucose Level 213 Calcium Level 8.8 Phosphorus Level 2.9 Magnesium Level 2.0 Total Bilirubin 1.0 Direct Bilirubin 0.00 Indirect Bilirubin 1.0 Aspartate Amino Transf (AST/SGOT) 109 #H Alanine Aminotransferase (ALT/SGPT) 83 H Alkaline Phosphatase 191 H Total Protein 7.2 Albumin 3.8 Globulin 3.40 H Albumin/Globulin Ratio 1.11 Medications Medications Current Medications Aspirin (Aspirin) 81 mg DAILY PO Last administered on 04/29/17 08:16; Admin Dose 81 MG; Start 04/28/17 at 09:00 Amiodarone HCl (Cordarone) 200 mg DAILY PO Last administered on 04/29/17 07:26 ; Admin Dose 200 MG; Start 04/28/17 at 09:00 Ferrous Sulfate (Ferrous Sulfate (Ec)) 325 mg BID PO Last administered on 08:16; Admin Dose 325 MG; Start 04/27/17 at 21:00 Ondansetron HCl (Zofran Inj) 4 mg Q6H PRN IV NAUSEA AND/OR VOMITING; Start at 17:00 Nitroglycerin (Nitroglycerin (Sl Tab) 0.4 Mg) 1 tab Q5M PRN SL CHEST PAIN; Start 04/27/17 at 17:00 Acetaminophen (Tylenol Tab) 650 mg Q6H PRN PO PAIN LEVEL 1-3 OR FEVER; Start at 17:00 Morphine Sulfate (morphine) 2 mg Q4H PRN IV PAIN LEVEL 7-10 Last administered on 04/27/17 17:15; Admin Dose 2 MG; Start 04/27/17 at 17:00 Docusate Sodium (Colace) 100 mg Q12H PRN PO CONSTIPATION; Start 04/27/17 at 17: 00 Magnesium Hydroxide (Milk Of Mag) 30 ml DAILY PRN PO CONSTIPATION; Start at 17:00 Bisacodyl (Dulcolax Supp) 10 mg DAILY PRN [place] CONSTIPATION; Start 04/27/17 at 17 :00 Famotidine (Pepcid) 20 mg Q12 PO Last administered on 04/29/17 08:16; Admin Dose 20 MG; Start 04/27/17 at 21:00 Clopidogrel Bisulfate (plaVIX) 75 mg DAILY PO Last administered on 04/29/17 08 :16; Admin Dose 75 MG; Start 04/28/17 at 09:00 Atorvastatin Calcium (Lipitor) 80 mg HS PO Last administered on 04/28/17 21:29 ; Admin Dose 80 MG; Start 04/27/17 at 22:30 Miscellaneous Information 1 ea NOTE XX ; Start 04/27/17 at 23:45 Glucose (Glutose) 15 gm Q15M PRN PO DECREASED GLUCOSE; Start 04/27/17 at 23:45 Glucose (Glutose) 22.5 gm Q15M PRN PO DECREASED GLUCOSE; Start 04/27/17 at 23: 45 Dextrose (D50w Syringe) 25 ml Q15M PRN IV DECREASED GLUCOSE; Start 04/27/17 at 23:45 Dextrose (D50w Syringe) 50 ml Q15M PRN IV DECREASED GLUCOSE; Start 04/27/17 at 23:45 Glucagon (Glucagen) 1 mg Q15M PRN IM DECREASED GLUCOSE; Start 04/27/17 at 23:45 Glucose (Glutose) 15 gm Q15M PRN BUCCAL DECREASED GLUCOSE; Start 04/27/17 at 23 :45 Diagnostic Test (Pha) (Accu-Chek) 1 ea 02 XX Last administered on 04/29/17 02: 00; Admin Dose 1 EA; Start 04/29/17 at 02:00 Insulin Glargine (Lantus) 18 unit DAILY@08 SC Last administered on 04/29/17 08 :16; Admin Dose 18 UNIT; Start 04/29/17 at 08:00 Dabigatran (PRADaxa) 150 mg BID PO Last administered on 04/29/17 08:17; Admin Dose 150 MG; Start 04/28/17 at 21:00 Linagliptin (Tradjenta) 5 mg DAILY PO Last administered on 04/29/17 10:02; Admin Dose 5 MG; Start 04/29/17 at 10:00 Zaire Foster DO Apr 29, 2017 11:33
[2017-04-29] MEDS ORDERED: MAGNESIUM SULFATE 1 GM/D5W 100 ML IVPB ONE (12:30)
[2017-04-29] MEDS: LISINOPRIL 5 MG TAB PO SCH ×2 (13:59→21:00)
[2017-04-29] MEDS ORDERED: POTASSIUM CHLORIDE (SR) 20 MEQ TAB PO ONE (14:00)
--- NOTE | 2017-04-29 14:35 | RADRPT ---
Vent Rate: 126 bpm RR Interval: 0 msec FL Interval: 0 msec QRS Duration: 104 msec QT Interval: 324 msec QTC Interval: 469 msec P-R-T [place]: 0 - 40 - 0 degrees Atrial fibrillation with rapid ventricular response Marked ST abnormality, possible inferolateral subendocardial injury Abnormal ECG Electronically Signed By: Zaire Foster [id number]
[2017-04-29] MEDS: FUROSEMIDE 40 MG TAB PO SCH (17:28)
[2017-04-29 19:01] LABS: CALCIUM 8.8 mg/dl (8.4-10.2); CREATININE 1.01 mg/dl (0.61-1.24); POTASSIUM 3.7 mmol/L (3.5-5.1)
[2017-04-29] MEDS ORDERED: SOD CHLORIDE 0.9% 500 ML IV ONE (20:00)
[2017-04-29] MEDS ORDERED: SOD CHLORIDE 0.9% 1,000 ML IV ONE ×2 (20:00→22:00)
[2017-04-29 20:49] LABS: ADD SCAN DIFF NO
[2017-04-29] MEDS ORDERED: NORepinephrine 8MG/250 ML (PMX 250 ML ONE (20:50)
[2017-04-29 20:51] LABS: BASOPHILS % 0.2 % (0.0-2.0); EOSINOPHILS % 0.3 % (0.0-7.0); HEMATOCRIT 32.3 % (42.0-52.0); HEMOGLOBIN 10.8 g/dl (14.0-18.0); LYMPHOCYTES # 0.9 10^3/ul (0.8-2.9); LYMPHOCYTES % 7.2 % (15.0-51.0); MEAN CORPUSCULAR HEMOGLOBIN 28.1 pg (29.0-33.0); MEAN CORPUSCULAR HGB CONC 33.4 g/dl (32.0-37.0); MEAN CORPUSCULAR VOLUME 83.9 fl (82.0-101.0); MEAN PLATELET VOLUME 10.3 fl (7.4-10.4); MONOCYTE # 0.8 10^3/ul (0.3-0.9); MONOCYTES % 6.3 % (0.0-11.0); NEUTROPHILS % 85.4 % (39.0-77.0); PLATELET COUNT 261 10^3/UL (140-415); RED BLOOD COUNT 3.85 10^6/ul (4.70-6.10); RED CELL DISTRIBUTION WIDTH 13.9 % (11.5-14.5); WHITE BLOOD COUNT 12.9 10^3/ul (4.8-10.8)
[2017-04-29 20:58] LABS: CALCIUM 8.5 mg/dl (8.4-10.2); CREATININE 1.23 mg/dl (0.61-1.24); POTASSIUM 3.9 mmol/L (3.5-5.1)
[2017-04-29] MEDS: ATORVASTATIN 40 MG TAB PO SCH ×2 (21:00→22:39)
[2017-04-29 21:43] LABS: AADO2 Arterial 86.9 mmHg (7.0-24.0); Allen Test ACCEPTAB; Arterial Base Excess -5.5 mmol/L (-3.0-3); Arterial COHb 0.4 % (0.0-3.0); Arterial Fraction of Oxyhgb 97.1 % (93.0-99.0); Arterial HCO3 16.2 mmol/L (22.0-26.0); Arterial MetHb 0.3 % (0.0-1.5); Arterial Total Hemglobin 12.4 g/dl (12.0-18.0); MODE NASAL CANNULA
--- NOTE | 2017-04-29 22:03 | EN ---
Date/Time of Note Date/Time of Note DATE: 04/29/17 TIME: 22:01 ER Progress Note I was called to the ICU by Dr. Landa for patient with hypotension who is on norepinephrine drip through a peripheral line. Dr. Landa requested that I place a central line for ongoing initiation of pressors. The patient was consented for procedure. He was noted to be hypotensive with a systolic blood pressure in the 70s. The patient was alert and oriented. Central Line Placement by me: Patient consented, sterilely draped, full prep, gown, glove, mask, time out performed. Anesthesia: 1% lidocaine locally Location: Right internal jugular Device: Multiple lumen Technique: Seldinger technique. Secured with suture. Results: Venous return from all ports with easy saline flush. No complications. Guide wire retrieved and disposed of. ED Ultrasound: Central line placed by me using concurrent ultrasound guidance. Chest x-ray pending to confirm placement. Will be reviewed by Dr. Landa. ALMA RAVI MD Apr 29, 2017 22:03
--- NOTE | 2017-04-29 22:44 | EN ---
Date/Time of Note Date/Time of Note DATE: 04/29/17 TIME: 22:30 Event Note Medicine Medicine Event Note [employer] called at approximately 8:00pm on 04/29. Patient's blood pressure was reported to be 55/35. Upon arrival of the [employer] team, patient was alert, awake, and responding to questions. he stated he felt a little "odd" with a burning senstation at the left upper chest. Denied any overt chest pain or shortness of breath. Patient was afebrile and 02 sat was 97% on room air. Normal saline bolus was started wide open via IV. Patient's blood pressure only slightly improved to 64/40 after 500cc of normal saline. He was not producing any urine. Prior to the [employer] he did receive lasix iv. EKG was done which did show ST depressions in II, III and avf which were slightly increased from his previous ekg from 0700 on 04/29/17 earlier in the am. STAT labs were ordered of BMP, CBC, Lactate, and Cardiac enzymes x 3. Patient was subsequently transferred to the ICU where he was started on peripheral levophed. A central line was put in by the ER physician, chest x-ray was ordered for line placement confirmation. Case was also discussed with the Dr. Conley. At this time was recommended to order a CT scan of the chest without contrast. Will await results of imaging studies and proceed with any further intervention as necessary. Continue peripheral levo fed for now until line confirmation is confirmed by x- ray.`````` Greater than 40 minutes of critical care time was spent during this [employer]. ` TAMELA LAW Apr 29, 2017 22:44
[2017-04-29 23:06] LABS: CK-MB 1.48 ng/ml (0.0-2.4); TROPONIN-I 3.11 ng/ml (0.00-0.12)
--- NOTE | 2017-04-29 23:54 | RADRPT ---
PROCEDURE: Portable chest x-ray. CLINICAL INDICATION: Central line placement. TECHNIQUE: Portable AP view of the chest. COMPARISON: 04/28/2017. FINDINGS: A right central venous catheter terminates in the right atrium. Pulmonary edema has improved since t he prior examination. The patient is status post median sternotomy and cap. The cardiac silhouette is mildly enlarged. There is a left chest cardiac pacemaker / AICD. No pleural effusion is seen. T here is no pneumothorax. IMPRESSION: 1. Right central venous catheter tip in the right atrium. Recommend 2 cm retraction. 2. Improved pulmonary edema. 3. Status post CABG. 4. Mildly enlarged cardiac silhouette 5. Cardiac pacemaker / AICD. RPTAT: HTAR .Forest Malik MD, MD Date Time Electronically viewed and signed by .Forest Malik MD, on 04/29/2017 23:54 .R/
[2017-04-30] VITALS (83 sets, daily range): BP systolic 83–125; BP diastolic 57–88; PULSE 78–96; RESP 13–45
[2017-04-30] MEDS ORDERED: SOD CHLORIDE 0.9% 1,000 ML IV SCH
[2017-04-30 01:39] LABS: CK-MB 2.38 ng/ml (0.0-2.4); TROPONIN-I 1.18 ng/ml (0.00-0.12)
[2017-04-30] MEDS: ACCU-CHEK XX SCH (02:18)
--- NOTE | 2017-04-30 02:54 | RADRPT ---
PROCEDURE: CT Chest without contrast. CLINICAL INDICATION: Elevated troponin and lactate levels, status post stent placement. TECHNIQUE: A CT scan of the chest without contrast was performed. Coronal and sagittal reformatted images were obtained from the axial source images. CTDIvol: 15.69 mGy. DLP: 613.49 mGy-cm. One or more of the following dose reduction techniques were used: - Automated exposure control. - Adjustment of the mA and/or kV according to patient size. - Use of iterative reconstruction technique. COMPARISON: None. FINDINGS: There is no suspicious thyroid lesion. There are several anterior and middle mediastinal lymph nodes , but none are enlarged by CT criteria. The trachea and mainstem bronchi are patent. The heart is enlarged. There is no pericardial effusion. The patient is status post median sternoto my and CABG. There is a left chest cardiac pacemaker / AICD. A right central venous catheter termina andreia at the superior cavoatrial junction. The main pulmonary artery is mildly enlarged (3.4 cm). The re is a stent in proximal left subclavian artery. There are small right and small to moderate left pleural effusions, with adjacent bilateral lower lo be atelectasis. Patchy ground-glass opacities are noted in the bilateral upper and lower lobes. Sm ooth interlobular septal thickening is noted in both lower lungs. The liver has a heterogeneously hypodense appearance, nonspecific. There is no suspicious osseous lesion. IMPRESSION: 1. Patchy ground-glass opacities in the bilateral upper and lower lobes, and smooth interlobular se ptal thickening in both lower lungs. These findings are suggestive of pulmonary edema. 2. Small right and small to moderate left pleural effusions, with adjacent bilateral lower lobe ate lectasis. 3. Cardiomegaly and evidence of prior CABG. There is also a left chest cardiac pacemaker / AICD. 4. Mildly enlarged main pulmonary, raising the possibility of pulmonary hypertension. 5. Stent in the proximal left subclavian artery. 6. Heterogeneously hypodense appearance of the liver, nonspecific. Correlation with LFTs is recomme nded. This could be further evaluated with ultrasound, three phase liver protocol CT, or contrast e nhanced MRI, as clinically warranted. RPTAT: HTAR .Forest Malik MD, Date Time Electronically viewed and signed by .Forest Malik MD, on 04/30/2017 02:54 .R/
[2017-04-30] MEDS ORDERED: LIDOCAINE 1% (MDV) 20 ML INJ ONE (03:43)
[2017-04-30] MEDS ORDERED: LIDOCAINE 1% (MDV) 20 ML INJ SC ONE (05:30)
[2017-04-30 05:52] LABS: ADD SCAN DIFF NO
[2017-04-30] MEDS: FUROSEMIDE 40 MG TAB PO SCH (06:00)
[2017-04-30 06:05] LABS: EOSINOPHILS % 0.1 % (0.0-7.0); MONOCYTES % 6.5 % (0.0-11.0); RED CELL DISTRIBUTION WIDTH 13.9 % (11.5-14.5)
[2017-04-30 06:18] LABS: BASOPHILS % 0.2 % (0.0-2.0); CALCIUM 7.9 mg/dl (8.4-10.2); CREATININE 0.79 mg/dl (0.61-1.24); HEMATOCRIT 36.6 % (42.0-52.0); HEMOGLOBIN 12.5 g/dl (14.0-18.0); LYMPHOCYTES # 1.1 10^3/ul (0.8-2.9); LYMPHOCYTES % 7.7 % (15.0-51.0); MEAN CORPUSCULAR HEMOGLOBIN 27.7 pg (29.0-33.0); MEAN CORPUSCULAR HGB CONC 34.2 g/dl (32.0-37.0); MEAN CORPUSCULAR VOLUME 81.2 fl (82.0-101.0); MEAN PLATELET VOLUME 10.9 fl (7.4-10.4); MONOCYTE # 0.9 10^3/ul (0.3-0.9); NEUTROPHIL # 12.3 10^3/ul (1.6-7.5); NEUTROPHILS % 84.7 % (39.0-77.0); PLATELET COUNT 288 10^3/UL (140-415); POTASSIUM 3.2 mmol/L (3.5-5.1); RED BLOOD COUNT 4.51 10^6/ul (4.70-6.10); WHITE BLOOD COUNT 14.5 10^3/ul (4.8-10.8)
[2017-04-30 06:23] LABS: PHOSPHORUS 3.3 mg/dl (2.5-4.9)
--- NOTE | 2017-04-30 06:45 | RADRPT ---
PROCEDURE: Chest. CLINICAL INDICATION: Chest pain. TECHNIQUE: Single frontal view of the chest was obtained. COMPARISON: 04/29/2017. FINDINGS: There is a left-sided AICD pacemaker. Mediasternotomy wires are present. There is a right IJ centr al venous cath extending to the SVC/RA junction. The cardiac silhouette is enlarged. The aortic ar ch is unremarkable. There is pulmonary edema. There is no pleural effusion. There is no pneumotho rax. IMPRESSION: Moderate cardiomegaly and mild pulmonary edema, slightly increased. Right IJ central venous catheter in place. .Bakari Cota MD, MD Date Time Electronically viewed and signed by .Bakari Cota MD, MD on 04/30/2017 06:45 .T/
[2017-04-30] MEDS ORDERED: POTASSIUM CHLORIDE 250 ML IVPB ONE (07:00)
[2017-04-30 07:04] LABS: CK-MB 4.25 ng/ml (0.0-2.4); TROPONIN-I 2.17 ng/ml (0.00-0.12)
[2017-04-30 07:17] LABS: ALBUMIN 3.6 g/dl (3.3-4.9); BILIRUBIN,INDIRECT 0.6 mg/dl (0-1.1); BILIRUBIN,TOTAL 0.6 mg/dl (0.2-1.3); TOTAL PROTEIN 6.5 g/dl (6.1-8.1)
[2017-04-30] MEDS: LISINOPRIL 5 MG TAB PO SCH (08:25)
[2017-04-30] MEDS: AMIODARONE 200 MG TAB PO SCH (09:10)
[2017-04-30] MEDS: FAMOTIDINE 20 MG TAB PO SCH ×2 (09:10→21:05)
[2017-04-30] MEDS: ASPIRIN 81 MG TAB PO SCH (09:10)
[2017-04-30] MEDS: CLOPIDOGREL 75 MG TAB PO SCH (09:10)
[2017-04-30] MEDS: DABIGATRAN 150 MG CAP PO SCH ×2 (09:10→21:04)
[2017-04-30] MEDS: LINAGLIPTIN 5 MG TABLET PO SCH (09:10)
[2017-04-30] MEDS: FERROUS SULFATE (EC) 325 MG TAB PO SCH ×2 (09:10→21:05)
[2017-04-30] MEDS: INSULIN GLARGINE [LANtus] 3 ML PEN SC SCH (09:12)
[2017-04-30] MEDS: INSULIN ASPART [NOVOLOG] 3 ML PEN SC SCH ×7 (09:13→21:07)
--- NOTE | 2017-04-30 09:43 | CONS ---
Date/Time of Note Date/Time of Note DATE: 04/30/17 TIME: 09:40 Assessment/Plan Assessment/Plan Chief Complaint/Hosp Course Non-ST elevation [place] status post intervention with balloon angioplasty and stenting to left subclavian proximal to BARRERA takeoff Coronary artery disease with history of CABG Ischemic cardiomyopathy with ejection fraction 25% and history of ICD Diabetes, uncontrolled Hypokalemia Atrial fibrillation/flutter, paroxysmal, on anticoagulation CHF systolic and diastolic acute and chronic Pulmonary edema Problems: Additional Assessment/Plan 1) DC po lasix 2) Bumex gtt as needed 3) monitor renal function 4) wean pressor 5) hold beta franny and NIRAV 6) BNP 7) DC fluids 8) No evidence of hemothorax in CT chest 9) DC ASA upon discharge Consultation Date/Type/Reason Admit Date/Time Apr 27, 2017 at 21:55 Initial Consult Date Type of Consultation: cv 24 HR Interval Summary Free Text/Dictation no chest pain, no sob, no palpitations Detailed Summary Respiratory: no complaints Cardiovascular: no complaints Musculoskeletal: no complaints Skin: no complaints Neurologic: no complaints Exam/Review of Systems Vital Signs Vitals Vital Signs Date Time Temp Pulse Resp B/P Pulse Ox O2 Delivery O2 Flow Rate FiO2 04/30/17 08:15 83 35 106/79 98 Nasal Cannula 04/30/17 07:45 98.1 2.0 Intake and Output 04/29/17 04/29/17 04/30/17 15:00 23:00 07:00 Intake Total 350 ml 2400.00 ml 2670.00 ml Output Total 400 ml 1000 ml 3575 ml Balance -50 ml 1400.00 ml -905.00 ml Exam Constitutional: alert, oriented Head: atraumatic, normocephalic Neck: supple Respiratory: clear to auscultation Cardiovascular: regular rate and rhythm Gastrointestinal: soft Musculoskeletal: nl extremities to inspection Results Result Diagram: 04/30/17 0445 04/30/17 0445 Results 24 hrs Laboratory Tests Test 04/29/17 11:40 04/29/17 13:04 04/29/17 17:30 04/29/17 18:25 Lab Scanned Report REFERENCE LAB Bedside Glucose 235 H 264 H Sodium Level 127 L Potassium Level 3.7 Chloride Level 94 L Carbon Dioxide Level 25 Anion Gap 12 Blood Urea Nitrogen 23 H Creatinine 1.01 Glucose Level 271 H Calcium Level 8.8 Test 04/29/17 19:55 04/29/17 20:15 04/29/17 22:25 04/29/17 22:30 Blood Gas Specimen Source Blood arterial Arterial Blood Date Drawn 04/29/2017 9:30:39 PM Arterial Blood pH (Temp corrected) 7.478 H Arterial Blood pCO2 (Temp correct) 22.3 L Arterial Blood pO2 (Temp corrected) 122.4 H Arterial Blood HCO3 16.2 L Arterial Blood Base Excess -5.5 L Arterial Blood Oxygen Saturation 97.8 Jerald Test ACCEPTAB Arterial Blood Gas Puncture Site Left Radial Arterial Blood Carboxyhemoglobin 0.4 Arterial Blood Methemoglobin 0.3 Blood Gas A-a O2 Differential 86.9 H Oxyhemoglobin Percent 97.1 Total Hemoglobin 12.4 Blood Gas Temperature 37.0 Blood Gas Modality NASAL CANNULA FiO2 33.0 Blood Gas Notified Whom UP Blood Gas Notified Time 04/29/2017 9:43:26 PM White Blood Count 12.9 H Red Blood Count 3.85 L Hemoglobin 10.8 L Hematocrit 32.3 L Mean Corpuscular Volume 83.9 Mean Corpuscular Hemoglobin 28.1 L Mean Corpuscular Hemoglobin Concent 33.4 Red Cell Distribution Width 13.9 Platelet Count 261 Mean Platelet Volume 10.3 Neutrophils % 85.4 H Lymphocytes % 7.2 L Monocytes % 6.3 Eosinophils % 0.3 Basophils % 0.2 Nucleated Red Blood Cells % 0.0 Neutrophils # 11.0 H Lymphocytes # 0.9 Monocytes # 0.8 Eosinophils # 0.0 Basophils # 0.0 Nucleated Red Blood Cells # 0.0 Sodium Level 127 L Potassium Level 3.9 Chloride Level 94 L Carbon Dioxide Level 26 Anion Gap 11 Blood Urea Nitrogen 24 H Creatinine 1.23 Glucose Level 238 H Lactic Acid Level 3.6 H Calcium Level 8.5 Bedside Glucose 323 H Creatine Kinase 74 Creatinine Kinase MB (Mass) 1.48 Troponin I 3.110 *H Test 04/30/17 00:31 04/30/17 00:35 04/30/17 02:14 04/30/17 04:45 Bedside Glucose 273 H 276 H Creatine Kinase 80 102 Creatine Kinase Index 3.0 4.2 Creatinine Kinase MB (Mass) 2.38 4.25 H Troponin I 1.180 *H 2.170 *H White Blood Count 14.5 H Red Blood Count 4.51 L Hemoglobin 12.5 L Hematocrit 36.6 L Mean Corpuscular Volume 81.2 L Mean Corpuscular Hemoglobin 27.7 L Mean Corpuscular Hemoglobin Concent 34.2 Red Cell Distribution Width 13.9 Platelet Count 288 Mean Platelet Volume 10.9 H Neutrophils % 84.7 H Lymphocytes % 7.7 L Monocytes % 6.5 Eosinophils % 0.1 Basophils % 0.2 Nucleated Red Blood Cells % 0.0 Neutrophils # 12.3 H Lymphocytes # 1.1 Monocytes # 0.9 Eosinophils # 0.0 Basophils # 0.0 Nucleated Red Blood Cells # 0.0 Sodium Level 131 L Potassium Level 3.2 L Chloride Level 95 L Carbon Dioxide Level 24 Anion Gap 15 Blood Urea Nitrogen 18 Creatinine 0.79 Glucose Level 234 H Calcium Level 7.9 L Phosphorus Level 3.3 Magnesium Level 2.0 Total Bilirubin 0.6 Direct Bilirubin 0.00 Indirect Bilirubin 0.6 Aspartate Amino Transf (AST/SGOT) 224 #H Alanine Aminotransferase (ALT/SGPT) 151 H Alkaline Phosphatase 290 #H Total Protein 6.5 Albumin 3.6 Test 04/30/17 07:59 04/30/17 08:15 04/30/17 09:09 Bedside Glucose 198 201 Lactic Acid Level 1.5 Medications Medications Current Medications Aspirin (Aspirin) 81 mg DAILY PO Last administered on 04/30/17 09:10; Admin Dose 81 MG; Start 04/28/17 at 09:00 Amiodarone HCl (Cordarone) 200 mg DAILY PO Last administered on 04/30/17 09:10 ; Admin Dose 200 MG; Start 04/28/17 at 09:00 Ferrous Sulfate (Ferrous Sulfate (Ec)) 325 mg BID PO Last administered on 09:10; Admin Dose 325 MG; Start 04/27/17 at 21:00 Ondansetron HCl (Zofran Inj) 4 mg Q6H PRN IV NAUSEA AND/OR VOMITING; Start at 17:00 Nitroglycerin (Nitroglycerin (Sl Tab) 0.4 Mg) 1 tab Q5M PRN SL CHEST PAIN; Start 04/27/17 at 17:00 Acetaminophen (Tylenol Tab) 650 mg Q6H PRN PO PAIN LEVEL 1-3 OR FEVER; Start at 17:00 Morphine Sulfate (morphine) 2 mg Q4H PRN IV PAIN LEVEL 7-10 Last administered on 04/27/17 17:15; Admin Dose 2 MG; Start 04/27/17 at 17:00 Docusate Sodium (Colace) 100 mg Q12H PRN PO CONSTIPATION; Start 04/27/17 at 17: 00 Magnesium Hydroxide (Milk Of Mag) 30 ml DAILY PRN PO CONSTIPATION; Start at 17:00 Bisacodyl (Dulcolax Supp) 10 mg DAILY PRN [place] CONSTIPATION; Start 04/27/17 at 17 :00 Famotidine (Pepcid) 20 mg Q12 PO Last administered on 04/30/17 09:10; Admin Dose 20 MG; Start 04/27/17 at 21:00 Clopidogrel Bisulfate (plaVIX) 75 mg DAILY PO Last administered on 04/30/17 09 :10; Admin Dose 75 MG; Start 04/28/17 at 09:00 Atorvastatin Calcium (Lipitor) 80 mg HS PO Last administered on 04/29/17 22:39 ; Admin Dose 80 MG; Start 04/27/17 at 22:30 Miscellaneous Information 1 ea NOTE XX ; Start 04/27/17 at 23:45 Glucose (Glutose) 15 gm Q15M PRN PO DECREASED GLUCOSE; Start 04/27/17 at 23:45 Glucose (Glutose) 22.5 gm Q15M PRN PO DECREASED GLUCOSE; Start 04/27/17 at 23: 45 Dextrose (D50w Syringe) 25 ml Q15M PRN IV DECREASED GLUCOSE; Start 04/27/17 at 23:45 Dextrose (D50w Syringe) 50 ml Q15M PRN IV DECREASED GLUCOSE; Start 04/27/17 at 23:45 Glucagon (Glucagen) 1 mg Q15M PRN IM DECREASED GLUCOSE; Start 04/27/17 at 23:45 Glucose (Glutose) 15 gm Q15M PRN BUCCAL DECREASED GLUCOSE; Start 04/27/17 at 23 :45 Diagnostic Test (Pha) (Accu-Chek) 1 ea 02 XX Last administered on 04/30/17 02: 18; Admin Dose 1 EA; Start 04/29/17 at 02:00 Insulin Glargine (Lantus) 18 unit DAILY@08 SC Last administered on 04/30/17 09 :12; Admin Dose 18 UNIT; Start 04/29/17 at 08:00 Dabigatran (PRADaxa) 150 mg BID PO Last administered on 04/30/17 09:10; Admin Dose 150 MG; Start 04/28/17 at 21:00 Linagliptin (Tradjenta) 5 mg DAILY PO Last administered on 04/30/17 09:10; Admin Dose 5 MG; Start 04/29/17 at 10:00 Carvedilol (Coreg) 6.25 mg BID PO Last administered on 04/29/17 14:02; Admin Dose 6.25 MG; Start 04/29/17 at 12:00 Lisinopril 2.5 mg 2.5 mg BID PO Last administered on 04/29/17 13:59; Admin Dose 2.5 MG; Start 04/29/17 at 12:00 Norepinephrine 16 mg/Dextrose 500 ml @ 1.87 mls/hr TITRATE IV Last administered on 04/30/17 01:52; Admin Dose 48.75 MLS/HR; Start 04/29/17 at 21: 00 Potassium Chloride (KCl 40 MEQ/250 ML NS) 250 ml @ 62.5 mls/hr ONCE ONCE IVPB Last administered on 04/30/17 08:00; Admin Dose 62.5 MLS/HR; Start 04/30/17 at 07:00; Stop 04/30/17 at 10:59 KIMBERLY PURI MD Apr 30, 2017 09:43
--- NOTE | 2017-04-30 09:56 | RADRPT ---
Vent Rate: 78 bpm RR Interval: 0 msec TX Interval: 216 msec QRS Duration: 98 msec QT Interval: 464 msec QTC Interval: 528 msec P-R-T [place]: 10 - 0 - 0 degrees Sinus rhythm with 1st degree AV block Right superior axis deviation Pulmonary disease pattern Marked ST abnormality, possible inferolateral subendocardial injury Prolonged QT Abnormal ECG Electronically Signed By: Larry Weiss [id number]
--- NOTE | 2017-04-30 10:43 | PN ---
Date/Time of Note Date/Time of Note DATE: 04/30/17 TIME: 10:41 Assessment/Plan VTE Prophylaxis VTE Prophylaxis Intervention: other (asa and brilinta) Lines/Catheters IV Catheter Type (from Nrsg): Central Line Central line still needed: Yes (pressor) Urinary Cath still in place: No Assessment/Plan Assessment/Plan 1. cards: NSTEMI, s/p complex PCI of prox L subclavian prox to BARRERA take off (b) ischemic cardiomyopathy (c) icd in situ (d) paroxysmal a fib, stable 2. hypoK replete 9b) hypoNa, observe Subjective 24 Hr Interval Summary Free Text/Dictation no complaints, no chest pain or sob tolerating diet some dysuria Exam/Review of Systems Vital Signs Vitals Vital Signs Date Time Temp Pulse Resp B/P Pulse Ox O2 Delivery O2 Flow Rate FiO2 04/30/17 10:15 88 35 112/85 93 Nasal Cannula 2.0 04/30/17 07:45 98.1 Intake and Output 04/29/17 04/29/17 04/30/17 15:00 23:00 07:00 Intake Total 350 ml 2400.00 ml 2670.00 ml Output Total 400 ml 1000 ml 3575 ml Balance -50 ml 1400.00 ml -905.00 ml Exam Constitutional: alert Psych: no complaints Respiratory: clear to auscultation Cardiovascular: regular rate and rhythm Gastrointestinal: soft Results Result Diagram: 04/30/17 0445 04/30/17 0445 Results 24 hrs Laboratory Tests Test 04/29/17 11:40 04/29/17 13:04 04/29/17 17:30 04/29/17 18:25 Lab Scanned Report REFERENCE LAB Bedside Glucose 235 H 264 H Sodium Level 127 L Potassium Level 3.7 Chloride Level 94 L Carbon Dioxide Level 25 Anion Gap 12 Blood Urea Nitrogen 23 H Creatinine 1.01 Glucose Level 271 H Calcium Level 8.8 Test 04/29/17 19:55 04/29/17 20:15 04/29/17 22:25 04/29/17 22:30 Blood Gas Specimen Source Blood arterial Arterial Blood Date Drawn 04/29/2017 9:30:39 PM Arterial Blood pH (Temp corrected) 7.478 H Arterial Blood pCO2 (Temp correct) 22.3 L Arterial Blood pO2 (Temp corrected) 122.4 H Arterial Blood HCO3 16.2 L Arterial Blood Base Excess -5.5 L Arterial Blood Oxygen Saturation 97.8 Jerald Test ACCEPTAB Arterial Blood Gas Puncture Site Left Radial Arterial Blood Carboxyhemoglobin 0.4 Arterial Blood Methemoglobin 0.3 Blood Gas A-a O2 Differential 86.9 H Oxyhemoglobin Percent 97.1 Total Hemoglobin 12.4 Blood Gas Temperature 37.0 Blood Gas Modality NASAL CANNULA FiO2 33.0 Blood Gas Notified Whom UP Blood Gas Notified Time 04/29/2017 9:43:26 PM White Blood Count 12.9 H Red Blood Count 3.85 L Hemoglobin 10.8 L Hematocrit 32.3 L Mean Corpuscular Volume 83.9 Mean Corpuscular Hemoglobin 28.1 L Mean Corpuscular Hemoglobin Concent 33.4 Red Cell Distribution Width 13.9 Platelet Count 261 Mean Platelet Volume 10.3 Neutrophils % 85.4 H Lymphocytes % 7.2 L Monocytes % 6.3 Eosinophils % 0.3 Basophils % 0.2 Nucleated Red Blood Cells % 0.0 Neutrophils # 11.0 H Lymphocytes # 0.9 Monocytes # 0.8 Eosinophils # 0.0 Basophils # 0.0 Nucleated Red Blood Cells # 0.0 Sodium Level 127 L Potassium Level 3.9 Chloride Level 94 L Carbon Dioxide Level 26 Anion Gap 11 Blood Urea Nitrogen 24 H Creatinine 1.23 Glucose Level 238 H Lactic Acid Level 3.6 H Calcium Level 8.5 Bedside Glucose 323 H Creatine Kinase 74 Creatinine Kinase MB (Mass) 1.48 Troponin I 3.110 *H Test 04/30/17 00:31 04/30/17 00:35 04/30/17 02:14 04/30/17 04:44 Bedside Glucose 273 H 276 H Creatine Kinase 80 Creatine Kinase Index 3.0 Creatinine Kinase MB (Mass) 2.38 Troponin I 1.180 *H B-Type Natriuretic Peptide 2840 H Test 04/30/17 04:45 04/30/17 07:59 04/30/17 08:15 04/30/17 09:09 White Blood Count 14.5 H Red Blood Count 4.51 L Hemoglobin 12.5 L Hematocrit 36.6 L Mean Corpuscular Volume 81.2 L Mean Corpuscular Hemoglobin 27.7 L Mean Corpuscular Hemoglobin Concent 34.2 Red Cell Distribution Width 13.9 Platelet Count 288 Mean Platelet Volume 10.9 H Neutrophils % 84.7 H Lymphocytes % 7.7 L Monocytes % 6.5 Eosinophils % 0.1 Basophils % 0.2 Nucleated Red Blood Cells % 0.0 Neutrophils # 12.3 H Lymphocytes # 1.1 Monocytes # 0.9 Eosinophils # 0.0 Basophils # 0.0 Nucleated Red Blood Cells # 0.0 Sodium Level 131 L Potassium Level 3.2 L Chloride Level 95 L Carbon Dioxide Level 24 Anion Gap 15 Blood Urea Nitrogen 18 Creatinine 0.79 Glucose Level 234 H Calcium Level 7.9 L Phosphorus Level 3.3 Magnesium Level 2.0 Total Bilirubin 0.6 Direct Bilirubin 0.00 Indirect Bilirubin 0.6 Aspartate Amino Transf (AST/SGOT) 224 #H Alanine Aminotransferase (ALT/SGPT) 151 H Alkaline Phosphatase 290 #H Creatine Kinase 102 Creatine Kinase Index 4.2 Creatinine Kinase MB (Mass) 4.25 H Troponin I 2.170 *H Total Protein 6.5 Albumin 3.6 Bedside Glucose 198 201 Lactic Acid Level 1.5 Medications Medications Current Medications Aspirin (Aspirin) 81 mg DAILY PO Last administered on 04/30/17 09:10; Admin Dose 81 MG; Start 04/28/17 at 09:00 Amiodarone HCl (Cordarone) 200 mg DAILY PO Last administered on 04/30/17 09:10 ; Admin Dose 200 MG; Start 04/28/17 at 09:00 Ferrous Sulfate (Ferrous Sulfate (Ec)) 325 mg BID PO Last administered on 09:10; Admin Dose 325 MG; Start 04/27/17 at 21:00 Ondansetron HCl (Zofran Inj) 4 mg Q6H PRN IV NAUSEA AND/OR VOMITING; Start at 17:00 Nitroglycerin (Nitroglycerin (Sl Tab) 0.4 Mg) 1 tab Q5M PRN SL CHEST PAIN; Start 04/27/17 at 17:00 Acetaminophen (Tylenol Tab) 650 mg Q6H PRN PO PAIN LEVEL 1-3 OR FEVER; Start at 17:00 Morphine Sulfate (morphine) 2 mg Q4H PRN IV PAIN LEVEL 7-10 Last administered on 04/27/17 17:15; Admin Dose 2 MG; Start 04/27/17 at 17:00 Docusate Sodium (Colace) 100 mg Q12H PRN PO CONSTIPATION; Start 04/27/17 at 17: 00 Magnesium Hydroxide (Milk Of Mag) 30 ml DAILY PRN PO CONSTIPATION; Start at 17:00 Bisacodyl (Dulcolax Supp) 10 mg DAILY PRN [place] CONSTIPATION; Start 04/27/17 at 17 :00 Famotidine (Pepcid) 20 mg Q12 PO Last administered on 04/30/17 09:10; Admin Dose 20 MG; Start 04/27/17 at 21:00 Clopidogrel Bisulfate (plaVIX) 75 mg DAILY PO Last administered on 04/30/17 09 :10; Admin Dose 75 MG; Start 04/28/17 at 09:00 Miscellaneous Information 1 ea NOTE XX ; Start 04/27/17 at 23:45 Glucose (Glutose) 15 gm Q15M PRN PO DECREASED GLUCOSE; Start 04/27/17 at 23:45 Glucose (Glutose) 22.5 gm Q15M PRN PO DECREASED GLUCOSE; Start 04/27/17 at 23: 45 Dextrose (D50w Syringe) 25 ml Q15M PRN IV DECREASED GLUCOSE; Start 04/27/17 at 23:45 Dextrose (D50w Syringe) 50 ml Q15M PRN IV DECREASED GLUCOSE; Start 04/27/17 at 23:45 Glucagon (Glucagen) 1 mg Q15M PRN IM DECREASED GLUCOSE; Start 04/27/17 at 23:45 Glucose (Glutose) 15 gm Q15M PRN BUCCAL DECREASED GLUCOSE; Start 04/27/17 at 23 :45 Diagnostic Test (Pha) (Accu-Chek) 1 ea 02 XX Last administered on 04/30/17 02: 18; Admin Dose 1 EA; Start 04/29/17 at 02:00 Insulin Glargine (Lantus) 18 unit DAILY@08 SC Last administered on 04/30/17 09 :12; Admin Dose 18 UNIT; Start 04/29/17 at 08:00 Dabigatran (PRADaxa) 150 mg BID PO Last administered on 04/30/17 09:10; Admin Dose 150 MG; Start 04/28/17 at 21:00 Linagliptin (Tradjenta) 5 mg DAILY PO Last administered on 04/30/17 09:10; Admin Dose 5 MG; Start 04/29/17 at 10:00 Carvedilol (Coreg) 6.25 mg BID PO Last administered on 04/29/17 14:02; Admin Dose 6.25 MG; Start 04/29/17 at 12:00 Lisinopril 2.5 mg 2.5 mg BID PO Last administered on 04/29/17 13:59; Admin Dose 2.5 MG; Start 04/29/17 at 12:00 Norepinephrine 16 mg/Dextrose 500 ml @ 1.87 mls/hr TITRATE IV Last administered on 04/30/17 01:52; Admin Dose 48.75 MLS/HR; Start 04/29/17 at 21: 00 Potassium Chloride (KCl 40 MEQ/250 ML NS) 250 ml @ 62.5 mls/hr ONCE ONCE IVPB Last administered on 04/30/17 08:00; Admin Dose 62.5 MLS/HR; Start 04/30/17 at 07:00; Stop 04/30/17 at 10:59 Atorvastatin Calcium 40 mg 40 mg HS PO ; Start 04/30/17 at 21:00 Bumetanide/ Dextrose (Bumex/D5W) 25 ml @ 12.5 mls/hr ONCE ONCE IVPB ; Start at 11:30; Stop 04/30/17 at 13:29 JOSHUA CERON MD Apr 30, 2017 10:43
[2017-04-30] MEDS ORDERED: BUMETANIDE 2 MG in DEXTROSE 5% 17 ML IVPB ONE (11:30)
--- NOTE | 2017-04-30 11:40 | RADRPT ---
PROCEDURE: US, Liver. CLINICAL INDICATION: Abnormal appearance of the liver on CT. TECHNIQUE: Cheung scale and color Doppler sonographic images of the liver were obtained. COMPARISON: CT chest 04/30/2017. FINDINGS: The visualized pancreas, aorta and IVC are unremarkable. The liver is mildly echogenic suggesting the presence of fatty infiltration. The liver also demonst rates a coarse echotexture. There is no evidence of discrete hepatic lesion. There is no evidence of intrahepatic biliary duct dilatation. The common bile duct measures approximately 4.8 mm. The g allbladder is contracted with mild concentric wall thickening. There is no pericholecystic fluid. The main portal vein is patent with antegrade flow. The right kidney measures approximately 12.6 cm in length. There is no hydronephrosis or perinephri c fluid collection. IMPRESSION: Coarse echogenic liver suggesting the presence of fatty infiltration. Correlate with liver enzymes. RPTAT: HLST .Noelle Wylie MD, MD Date Time Electronically viewed and signed by .Noelle Wylie MD, on 04/30/2017 11:39 .T/
[2017-04-30] MEDS: POTASSIUM CHLORIDE (SR) 20 MEQ TAB PO SCH ×2 (12:17→21:04)
[2017-04-30 12:40] LABS: CK-MB 3.87 ng/ml (0.0-2.4)
[2017-04-30 12:44] LABS: TROPONIN-I 1.96 ng/ml (0.00-0.12)
[2017-04-30 18:47] LABS: ADD UMIC YES; UR BILIRUBIN (Dip) 1+ (NEGATIVE); UR BLOOD (Dip) 3+ (NEGATIVE); UR CLARITY CLOUDY (CLEAR); UR COLOR ORANGE (YELLOW); UR KETONES (Dip) NEGATIVE (NEGATIVE); UR LEUKOCYTE ESTERASE (Dip) NEGATIVE (NEGATIVE); UR NITRITE (Dip) NEGATIVE (NEGATIVE); UR TOTAL PROTEIN (Dip) 1+ (NEGATIVE); UR UROBILINOGEN (Dip) 4.0 E.U./dL (0.1-1.0)
[2017-04-30 19:17] LABS: URINE RBCS >200 /HPF (0)
[2017-04-30 19:19] LABS: ICTOTEST NEGATIVE (NEGATIVE)
[2017-04-30] MEDS: ATORVASTATIN 40 MG TAB PO SCH (21:05)
[2017-05-01] VITALS (45 sets, daily range): BP systolic 81–107; BP diastolic 57–85; PULSE 83–120; RESP 13–32
[2017-05-01] MEDS: ACCU-CHEK XX SCH (01:34)
[2017-05-01 05:08] LABS: ADD SCAN DIFF NO
[2017-05-01 05:17] LABS: BASOPHILS % 0.3 % (0.0-2.0); EOSINOPHILS # 0.1 10^3/ul (0.0-0.5); EOSINOPHILS % 0.5 % (0.0-7.0); HEMATOCRIT 35.5 % (42.0-52.0); HEMOGLOBIN 12.1 g/dl (14.0-18.0); MEAN CORPUSCULAR HEMOGLOBIN 27.4 pg (29.0-33.0); MEAN CORPUSCULAR HGB CONC 34.1 g/dl (32.0-37.0); MEAN CORPUSCULAR VOLUME 80.5 fl (82.0-101.0); MEAN PLATELET VOLUME 10.5 fl (7.4-10.4); MONOCYTE # 0.8 10^3/ul (0.3-0.9); MONOCYTES % 7.8 % (0.0-11.0); NEUTROPHIL # 7.7 10^3/ul (1.6-7.5); NUCLEATED RED BLOOD CELLS% 0.2 /100WBC (0.0-0.0); PLATELET COUNT 301 10^3/UL (140-415); RED BLOOD COUNT 4.41 10^6/ul (4.70-6.10); RED CELL DISTRIBUTION WIDTH 13.5 % (11.5-14.5); WHITE BLOOD COUNT 9.6 10^3/ul (4.8-10.8)
[2017-05-01 05:45] LABS: CALCIUM 8.3 mg/dl (8.4-10.2); CREATININE 0.74 mg/dl (0.61-1.24); POTASSIUM 3.2 mmol/L (3.5-5.1)
[2017-05-01] MEDS: FERROUS SULFATE (EC) 325 MG TAB PO SCH ×2 (08:20→20:46)
[2017-05-01] MEDS: ASPIRIN 81 MG TAB PO SCH (08:20)
[2017-05-01] MEDS: CLOPIDOGREL 75 MG TAB PO SCH (08:20)
[2017-05-01] MEDS: FAMOTIDINE 20 MG TAB PO SCH ×2 (08:20→20:47)
[2017-05-01] MEDS: LINAGLIPTIN 5 MG TABLET PO SCH (08:21)
[2017-05-01] MEDS: AMIODARONE 200 MG TAB PO SCH (08:21)
[2017-05-01] MEDS: DABIGATRAN 150 MG CAP PO SCH ×2 (08:21→20:47)
[2017-05-01] MEDS: INSULIN GLARGINE [LANtus] 3 ML PEN SC SCH (08:22)
[2017-05-01] MEDS: INSULIN ASPART [NOVOLOG] 3 ML PEN SC SCH ×7 (08:23→20:53)
[2017-05-01] MEDS: POTASSIUM CHLORIDE (SR) 20 MEQ TAB PO SCH ×2 (10:23→20:47)
--- NOTE | 2017-05-01 11:29 | CONS ---
Date/Time of Note Date/Time of Note DATE: 05/01/17 TIME: 11:27 Assessment/Plan Assessment/Plan Additional Assessment/Plan Non-ST elevation [place] status post intervention with balloon angioplasty and stenting to left subclavian proximal to BARRERA takeoff Coronary artery disease with history of CABG Ischemic cardiomyopathy with ejection fraction 25% and history of ICD Diabetes, uncontrolled Hypokalemia Atrial fibrillation/flutter, paroxysmal, on anticoagulation CHF systolic and diastolic acute and chronic -Remains off IV pressors. Continue antiplatelet therapy and anticoagulation and statin therapy. Gentle diuretics as blood pressure and renal function permits. Maintain potassium above 4.0 and magnesium above 2.0. Consultation Date/Type/Reason Admit Date/Time Apr 27, 2017 at 21:55 Type of Consultation: cv 24 HR Interval Summary Free Text/Dictation Feeling much better, denies chest pain, shortness of breath Exam/Review of Systems Vital Signs Vitals Vital Signs Date Time Temp Pulse Resp B/P Pulse Ox O2 Delivery O2 Flow Rate FiO2 05/01/17 10:30 89 27 100/73 100 Room Air 05/01/17 07:30 97.4 05/01/17 07:00 2.0 05/01/17 00:41 28 Intake and Output 04/30/17 04/30/17 05/01/17 15:00 23:00 07:00 Intake Total 1126.87 ml 214.12 ml Output Total 575 ml 2400 ml 350 ml Balance 551.87 ml -2185.88 ml -350 ml Exam No apparent distress Constitutional: alert, oriented Head: normocephalic Neck: supple Respiratory: other (Coarse breath sounds bilaterally, no wheezing) Cardiovascular: other (S1-S2 heard), regular rate and rhythm Gastrointestinal: bowel sounds, non-tender, other (No guarding), soft Extremities: edema (Trace), other (Right groin is soft, no hematoma, +2 femoral pulses) Results Result Diagram: 05/01/17 0430 05/01/17 0430 Results 24 hrs Laboratory Tests Test 04/30/17 11:45 04/30/17 12:16 04/30/17 13:15 04/30/17 21:03 Creatine Kinase 104 Creatine Kinase Index 3.7 Creatinine Kinase MB (Mass) 3.87 H Troponin I 1.960 *H Bedside Glucose 179 229 H Urine Color ORANGE Urine Clarity CLOUDY H Urine pH 6.0 Urine Specific [place] 1.025 Urine Ketones NEGATIVE Urine Nitrite NEGATIVE Urine Bilirubin 1+ H Urine Ictotest NEGATIVE Urine Urobilinogen 4.0 E.U./dL H Urine Leukocyte Esterase NEGATIVE Urine Microscopic RBC >200 Urine Microscopic WBC 2-5 Urine Hemoglobin 3+ H Urine Glucose 0.5% H Urine Total Protein 1+ H Test 05/01/17 01:27 05/01/17 04:30 05/01/17 07:36 Bedside Glucose 163 176 White Blood Count 9.6 # Red Blood Count 4.41 L Hemoglobin 12.1 L Hematocrit 35.5 L Mean Corpuscular Volume 80.5 L Mean Corpuscular Hemoglobin 27.4 L Mean Corpuscular Hemoglobin Concent 34.1 Red Cell Distribution Width 13.5 Platelet Count 301 Mean Platelet Volume 10.5 H Neutrophils % 81.0 H Lymphocytes % 10.0 L Monocytes % 7.8 Eosinophils % 0.5 Basophils % 0.3 Nucleated Red Blood Cells % 0.2 H Neutrophils # 7.7 H Lymphocytes # 1.0 Monocytes # 0.8 Eosinophils # 0.1 Basophils # 0.0 Nucleated Red Blood Cells # 0.0 Sodium Level 129 L Potassium Level 3.2 L Chloride Level 91 L Carbon Dioxide Level 31 Anion Gap 10 # Blood Urea Nitrogen 19 Creatinine 0.74 Glucose Level 150 Calcium Level 8.3 L Magnesium Level 2.1 Medications Medications Current Medications Aspirin (Aspirin) 81 mg DAILY PO Last administered on 05/01/17 08:20; Admin Dose 81 MG; Start 04/28/17 at 09:00 Amiodarone HCl (Cordarone) 200 mg DAILY PO Last administered on 05/01/17 08:21 ; Admin Dose 200 MG; Start 04/28/17 at 09:00 Ferrous Sulfate (Ferrous Sulfate (Ec)) 325 mg BID PO Last administered on 08:20; Admin Dose 325 MG; Start 04/27/17 at 21:00 Ondansetron HCl (Zofran Inj) 4 mg Q6H PRN IV NAUSEA AND/OR VOMITING; Start at 17:00 Nitroglycerin (Nitroglycerin (Sl Tab) 0.4 Mg) 1 tab Q5M PRN SL CHEST PAIN; Start 04/27/17 at 17:00 Acetaminophen (Tylenol Tab) 650 mg Q6H PRN PO PAIN LEVEL 1-3 OR FEVER; Start at 17:00 Morphine Sulfate (morphine) 2 mg Q4H PRN IV PAIN LEVEL 7-10 Last administered on 04/27/17 17:15; Admin Dose 2 MG; Start 04/27/17 at 17:00 Docusate Sodium (Colace) 100 mg Q12H PRN PO CONSTIPATION; Start 04/27/17 at 17: 00 Magnesium Hydroxide (Milk Of Mag) 30 ml DAILY PRN PO CONSTIPATION; Start at 17:00 Bisacodyl (Dulcolax Supp) 10 mg DAILY PRN [place] CONSTIPATION; Start 04/27/17 at 17 :00 Famotidine (Pepcid) 20 mg Q12 PO Last administered on 05/01/17 08:20; Admin Dose 20 MG; Start 04/27/17 at 21:00 Clopidogrel Bisulfate (plaVIX) 75 mg DAILY PO Last administered on 05/01/17 08 :20; Admin Dose 75 MG; Start 04/28/17 at 09:00 Miscellaneous Information 1 ea NOTE XX ; Start 04/27/17 at 23:45 Glucose (Glutose) 15 gm Q15M PRN PO DECREASED GLUCOSE; Start 04/27/17 at 23:45 Glucose (Glutose) 22.5 gm Q15M PRN PO DECREASED GLUCOSE; Start 04/27/17 at 23: 45 Dextrose (D50w Syringe) 25 ml Q15M PRN IV DECREASED GLUCOSE; Start 04/27/17 at 23:45 Dextrose (D50w Syringe) 50 ml Q15M PRN IV DECREASED GLUCOSE; Start 04/27/17 at 23:45 Glucagon (Glucagen) 1 mg Q15M PRN IM DECREASED GLUCOSE; Start 04/27/17 at 23:45 Glucose (Glutose) 15 gm Q15M PRN BUCCAL DECREASED GLUCOSE; Start 04/27/17 at 23 :45 Diagnostic Test (Pha) (Accu-Chek) 1 ea 02 XX Last administered on 05/01/17 01: 34; Admin Dose 1 EA; Start 04/29/17 at 02:00 Insulin Glargine (Lantus) 18 unit DAILY@08 SC Last administered on 05/01/17 08 :22; Admin Dose 18 UNIT; Start 04/29/17 at 08:00 Dabigatran (PRADaxa) 150 mg BID PO Last administered on 05/01/17 08:21; Admin Dose 150 MG; Start 04/28/17 at 21:00 Linagliptin 5 mg 5 mg DAILY PO Last administered on 05/01/17 08:21; Admin Dose 5 MG; Start 04/29/17 at 10:00 Norepinephrine/ Dextrose (Levophed/D5W) 500 ml @ 1.87 mls/hr TITRATE IV Last administered on 04/30/17 01:52; Admin Dose 48.75 MLS/HR; Start 04/29/17 at 21: 00 Atorvastatin Calcium (Lipitor) 40 mg HS PO Last administered on 04/30/17 21:05 ; Admin Dose 40 MG; Start 04/30/17 at 21:00 Potassium Chloride (Klor-Con 20) 40 meq BID PO Last administered on 05/01/17 10:23; Admin Dose 40 MEQ; Start 05/01/17 at 10:00; Stop 05/01/17 at 21:01 Zaire Foster DO May 01, 2017 11:29
--- NOTE | 2017-05-01 11:52 | PN ---
Date/Time of Note Date/Time of Note DATE: 05/01/17 TIME: 11:47 Assessment/Plan VTE Prophylaxis VTE Prophylaxis Intervention: other (pradaxa) Lines/Catheters IV Catheter Type (from Nrs): Central Line Central line still needed: No Urinary Cath still in place: No Assessment/Plan Assessment/Plan a/p 1. cards: nstemi, s/p cpi fop prox subclavian (b) relative hypotension, monitor, possibly a "stunned" myocardium effect, however, appears to be asymptomatic (c) ischemic cardiomyopathy (d) paroxysmal a fib, now on pradaxa 2. hypoK, replete Subjective 24 Hr Interval Summary Free Text/Dictation no complaints breathing good, no pain Exam/Review of Systems Vital Signs Vitals Vital Signs Date Time Temp Pulse Resp B/P Pulse Ox O2 Delivery O2 Flow Rate FiO2 05/01/17 11:30 91 30 87/70 100 Room Air 05/01/17 07:30 97.4 05/01/17 07:00 2.0 05/01/17 00:41 28 Intake and Output 04/30/17 04/30/17 05/01/17 15:00 23:00 07:00 Intake Total 1126.87 ml 214.12 ml Output Total 575 ml 2400 ml 350 ml Balance 551.87 ml -2185.88 ml -350 ml Exam Constitutional: alert Psych: no complaints Respiratory: clear to auscultation Cardiovascular: regular rate and rhythm Results Result Diagram: 05/01/17 0430 05/01/17 0430 Results 24 hrs Laboratory Tests Test 04/30/17 12:16 04/30/17 13:15 04/30/17 21:03 05/01/17 01:27 Bedside Glucose 179 229 H 163 Urine Color ORANGE Urine Clarity CLOUDY H Urine pH 6.0 Urine Specific [place] 1.025 Urine Ketones NEGATIVE Urine Nitrite NEGATIVE Urine Bilirubin 1+ H Urine Ictotest NEGATIVE Urine Urobilinogen 4.0 E.U./dL H Urine Leukocyte Esterase NEGATIVE Urine Microscopic RBC >200 Urine Microscopic WBC 2-5 Urine Hemoglobin 3+ H Urine Glucose 0.5% H Urine Total Protein 1+ H Test 05/01/17 04:30 05/01/17 07:36 White Blood Count 9.6 # Red Blood Count 4.41 L Hemoglobin 12.1 L Hematocrit 35.5 L Mean Corpuscular Volume 80.5 L Mean Corpuscular Hemoglobin 27.4 L Mean Corpuscular Hemoglobin Concent 34.1 Red Cell Distribution Width 13.5 Platelet Count 301 Mean Platelet Volume 10.5 H Neutrophils % 81.0 H Lymphocytes % 10.0 L Monocytes % 7.8 Eosinophils % 0.5 Basophils % 0.3 Nucleated Red Blood Cells % 0.2 H Neutrophils # 7.7 H Lymphocytes # 1.0 Monocytes # 0.8 Eosinophils # 0.1 Basophils # 0.0 Nucleated Red Blood Cells # 0.0 Sodium Level 129 L Potassium Level 3.2 L Chloride Level 91 L Carbon Dioxide Level 31 Anion Gap 10 # Blood Urea Nitrogen 19 Creatinine 0.74 Glucose Level 150 Calcium Level 8.3 L Magnesium Level 2.1 Bedside Glucose 176 Medications Medications Current Medications Aspirin (Aspirin) 81 mg DAILY PO Last administered on 05/01/17 08:20; Admin Dose 81 MG; Start 04/28/17 at 09:00 Amiodarone HCl (Cordarone) 200 mg DAILY PO Last administered on 05/01/17 08:21 ; Admin Dose 200 MG; Start 04/28/17 at 09:00 Ferrous Sulfate (Ferrous Sulfate (Ec)) 325 mg BID PO Last administered on 08:20; Admin Dose 325 MG; Start 04/27/17 at 21:00 Ondansetron HCl (Zofran Inj) 4 mg Q6H PRN IV NAUSEA AND/OR VOMITING; Start at 17:00 Nitroglycerin (Nitroglycerin (Sl Tab) 0.4 Mg) 1 tab Q5M PRN SL CHEST PAIN; Start 04/27/17 at 17:00 Acetaminophen (Tylenol Tab) 650 mg Q6H PRN PO PAIN LEVEL 1-3 OR FEVER; Start at 17:00 Morphine Sulfate (morphine) 2 mg Q4H PRN IV PAIN LEVEL 7-10 Last administered on 04/27/17 17:15; Admin Dose 2 MG; Start 04/27/17 at 17:00 Docusate Sodium (Colace) 100 mg Q12H PRN PO CONSTIPATION; Start 04/27/17 at 17: 00 Magnesium Hydroxide (Milk Of Mag) 30 ml DAILY PRN PO CONSTIPATION; Start at 17:00 Bisacodyl (Dulcolax Supp) 10 mg DAILY PRN [place] CONSTIPATION; Start 04/27/17 at 17 :00 Famotidine (Pepcid) 20 mg Q12 PO Last administered on 05/01/17 08:20; Admin Dose 20 MG; Start 04/27/17 at 21:00 Clopidogrel Bisulfate (plaVIX) 75 mg DAILY PO Last administered on 05/01/17 08 :20; Admin Dose 75 MG; Start 04/28/17 at 09:00 Miscellaneous Information 1 ea NOTE XX ; Start 04/27/17 at 23:45 Glucose (Glutose) 15 gm Q15M PRN PO DECREASED GLUCOSE; Start 04/27/17 at 23:45 Glucose (Glutose) 22.5 gm Q15M PRN PO DECREASED GLUCOSE; Start 04/27/17 at 23: 45 Dextrose (D50w Syringe) 25 ml Q15M PRN IV DECREASED GLUCOSE; Start 04/27/17 at 23:45 Dextrose (D50w Syringe) 50 ml Q15M PRN IV DECREASED GLUCOSE; Start 04/27/17 at 23:45 Glucagon (Glucagen) 1 mg Q15M PRN IM DECREASED GLUCOSE; Start 04/27/17 at 23:45 Glucose (Glutose) 15 gm Q15M PRN BUCCAL DECREASED GLUCOSE; Start 04/27/17 at 23 :45 Diagnostic Test (Pha) (Accu-Chek) 1 ea 02 XX Last administered on 05/01/17 01: 34; Admin Dose 1 EA; Start 04/29/17 at 02:00 Insulin Glargine (Lantus) 18 unit DAILY@08 SC Last administered on 05/01/17 08 :22; Admin Dose 18 UNIT; Start 04/29/17 at 08:00 Dabigatran (PRADaxa) 150 mg BID PO Last administered on 05/01/17 08:21; Admin Dose 150 MG; Start 04/28/17 at 21:00 Linagliptin 5 mg 5 mg DAILY PO Last administered on 05/01/17 08:21; Admin Dose 5 MG; Start 04/29/17 at 10:00 Norepinephrine/ Dextrose (Levophed/D5W) 500 ml @ 1.87 mls/hr TITRATE IV Last administered on 04/30/17 01:52; Admin Dose 48.75 MLS/HR; Start 04/29/17 at 21: 00 Atorvastatin Calcium (Lipitor) 40 mg HS PO Last administered on 04/30/17 21:05 ; Admin Dose 40 MG; Start 04/30/17 at 21:00 Potassium Chloride (Klor-Con 20) 40 meq BID PO Last administered on 05/01/17 10:23; Admin Dose 40 MEQ; Start 05/01/17 at 10:00; Stop 05/01/17 at 21:01 JOSHUA CERON MD May 01, 2017 11:52
[2017-05-01] MEDS ORDERED: SOD CHLORIDE 0.9% 500 ML IV ONE (12:00)
[2017-05-01] MEDS: FUROSEMIDE 20 MG INJ IV SCH (13:16)
[2017-05-01] MEDS ORDERED: FUROSEMIDE 20 MG INJ IV SCH (18:00)
[2017-05-01] MEDS: ATORVASTATIN 40 MG TAB PO SCH (20:47)
[2017-05-02] VITALS (11 sets, daily range): BP systolic 80–104; BP diastolic 53–68; PULSE 82–111; RESP 19–22
[2017-05-02] MEDS: ACCU-CHEK XX SCH (02:00)
[2017-05-02] MEDS: FUROSEMIDE 20 MG INJ IV SCH (05:36)
[2017-05-02] MEDS: INSULIN ASPART [NOVOLOG] 3 ML PEN SC SCH ×7 (08:00→20:53)
[2017-05-02] MEDS: CLOPIDOGREL 75 MG TAB PO SCH (08:24)
[2017-05-02] MEDS: ASPIRIN 81 MG TAB PO SCH (08:25)
[2017-05-02] MEDS: FAMOTIDINE 20 MG TAB PO SCH ×2 (08:25→20:54)
[2017-05-02] MEDS: FERROUS SULFATE (EC) 325 MG TAB PO SCH ×2 (08:25→20:54)
[2017-05-02] MEDS: LINAGLIPTIN 5 MG TABLET PO SCH (08:25)
[2017-05-02] MEDS: DABIGATRAN 150 MG CAP PO SCH ×2 (08:27→20:54)
[2017-05-02] MEDS: AMIODARONE 200 MG TAB PO SCH ×4 (08:33→21:29)
[2017-05-02] MEDS: INSULIN GLARGINE [LANtus] 3 ML PEN SC SCH (08:36)
--- NOTE | 2017-05-02 08:50 | RADRPT ---
PROCEDURE: Chest Radiograph. CLINICAL INDICATION: Pulmonary edema TECHNIQUE: Single frontal chest radiograph. COMPARISON: Chest radiograph 04/30/2017 FINDINGS: A left chest wall implantable pacer/defibrillator remains in place. A right internal jugular venous catheter is unchanged. The patient is status post sternotomy.. The heart remains enlarged. There is slightly improved central vascular congestion and pulmonary edema. No confluent or lobar infiltr ate is seen. The bones are intact. IMPRESSION: 1. Slightly improved central vascular congestion and pulmonary edema. 2. Otherwise stable radiographic appearance of chest compared 04/30/2017. RPTAT: KK .Paul Smith MD, MD Date Time Electronically viewed and signed by .Paul Smith MD, on 05/02/2017 08:49 .B/
[2017-05-02 11:03] LABS: ADD SCAN DIFF NO
[2017-05-02 11:07] LABS: BASOPHILS % 0.3 % (0.0-2.0); EOSINOPHILS % 0.5 % (0.0-7.0); HEMATOCRIT 36.4 % (42.0-52.0); HEMOGLOBIN 11.9 g/dl (14.0-18.0); LYMPHOCYTES % 13.1 % (15.0-51.0); MEAN CORPUSCULAR HEMOGLOBIN 26.9 pg (29.0-33.0); MEAN CORPUSCULAR HGB CONC 32.7 g/dl (32.0-37.0); MEAN CORPUSCULAR VOLUME 82.2 fl (82.0-101.0); MEAN PLATELET VOLUME 10.6 fl (7.4-10.4); MONOCYTE # 0.6 10^3/ul (0.3-0.9); MONOCYTES % 8.1 % (0.0-11.0); NEUTROPHIL # 6.1 10^3/ul (1.6-7.5); NEUTROPHILS % 77.5 % (39.0-77.0); PLATELET COUNT 330 10^3/UL (140-415); RED BLOOD COUNT 4.43 10^6/ul (4.70-6.10); RED CELL DISTRIBUTION WIDTH 14.1 % (11.5-14.5); WHITE BLOOD COUNT 7.9 10^3/ul (4.8-10.8)
--- NOTE | 2017-05-02 11:23 | PN ---
Date/Time of Note Date/Time of Note DATE: 05/02/17 TIME: 10:51 Assessment/Plan VTE Prophylaxis VTE Prophylaxis Intervention: SCD's (and on multiple antiplatelets ) Lines/Catheters IV Catheter Type (from Nrs): Central Line Central line still needed: Yes (for IV access ) Urinary Cath still in place: No Assessment/Plan Assessment/Plan 46-year-old male with: 1. 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 On dual antiplatelets and better hemodynamics this AM, transferred back to [facility] from ICU overnight. Labs pending and still with SBP upper 80's to 90's. On Amiodarone Follow up further Cardio recs today 2. Uncontrolled Diabetes mellitus with A1c above hospital range On Lantus, premeal Novolog and Tradjenta, better contorlled BG, also on SSI and ADA diet. DM education ongoing 3. Hypotension. Currently, BP still on low side and somewhat tolerated. Prn diuresis. On fluid restriction with Hyponatremia. 4. Hyperlipidemia. Needs better control, continue statins. 5. Paroxysmal atrial fibrillation. On Amiodarone Continuing Pradaxa. 6. Ischemic cardiomyopathy with ejection fraction of 35%. Continue on Lasix prn Monitor electrolytes and UOP 7. Hypokalemia. Labs pending this AM. Replete prn. 8. Hyponatremia. Improving, on Diuretics prn and fluid restriction and also with better BG control. Labs pending this AM. Prophylaxis: Sequential compression devices to lower extremities for deep vein thrombosis prophylaxis. Pepcid for gastrointestinal prophylaxis. DISPOSITION: Follow up Cardiology recs this AM today Subjective 24 Hr Interval Summary Free Text/Dictation Patient doing OK at rest but poor exercise tolerance Still with Hypotension and Sinus tach, no A fib Otherwise on RA Exam/Review of Systems Vital Signs Vitals Vital Signs Date Time Temp Pulse Resp B/P Pulse Ox O2 Delivery O2 Flow Rate FiO2 05/02/17 08:14 107 05/02/17 03:10 98.0 19 91/53 98 05/02/17 00:00 Room Air 05/01/17 20:51 21 05/01/17 07:00 2.0 Intake and Output 05/01/17 05/01/17 05/02/17 15:00 23:00 07:00 Intake Total 480 ml 340 ml Output Total 1000 ml 400 ml Balance -520 ml -60 ml Exam Constitutional: alert, oriented, well developed Respiratory: clear to auscultation, normal air movement Cardiovascular: nl pulses, other (sinus tachy ) Gastrointestinal: non-tender, soft Musculoskeletal: nl extremities to inspection Extremities: normal pulses, other (no edema, clubbing or cyanosis ) Neurological: SHERIFFS DETECTIVE II-XII intact, nl mental status, nl speech, nl strength Results Result Diagram: 05/01/1742905/01/17429 Results 24 hrs Laboratory Tests Test 05/01/17 12:21 05/01/17 18:04 05/01/17 20:51 05/02/17 01:55 Bedside Glucose 158 157 204 148 Test 05/02/17 08:19 Bedside Glucose 130 Medications Medications Current Medications Aspirin (Aspirin) 81 mg DAILY PO Last administered on 05/02/17 08:25; Admin Dose 81 MG; Start 04/28/17 at 09:00 Amiodarone HCl (Cordarone) 200 mg DAILY PO Last administered on 05/01/17 08:21 ; Admin Dose 200 MG; Start 04/28/17 at 09:00 Ferrous Sulfate (Ferrous Sulfate (Ec)) 325 mg BID PO Last administered on 08:25; Admin Dose 325 MG; Start 04/27/17 at 21:00 Ondansetron HCl (Zofran Inj) 4 mg Q6H PRN IV NAUSEA AND/OR VOMITING; Start at 17:00 Nitroglycerin (Nitroglycerin (Sl Tab) 0.4 Mg) 1 tab Q5M PRN SL CHEST PAIN; Start 04/27/17 at 17:00 Acetaminophen (Tylenol Tab) 650 mg Q6H PRN PO PAIN LEVEL 1-3 OR FEVER; Start at 17:00 Morphine Sulfate (morphine) 2 mg Q4H PRN IV PAIN LEVEL 7-10 Last administered on 04/27/17 17:15; Admin Dose 2 MG; Start 04/27/17 at 17:00 Docusate Sodium (Colace) 100 mg Q12H PRN PO CONSTIPATION; Start 04/27/17 at 17: 00 Magnesium Hydroxide (Milk Of Mag) 30 ml DAILY PRN PO CONSTIPATION; Start at 17:00 Bisacodyl (Dulcolax Supp) [address] CONSTIPATION; Start 04/27/17 at 17 :00 Famotidine (Pepcid) 20 mg Q12 PO Last administered on 05/02/17 08:25; Admin Dose 20 MG; Start 04/27/17 at 21:00 Clopidogrel Bisulfate (plaVIX) 75 mg DAILY PO Last administered on 05/02/17 08 :24; Admin Dose 75 MG; Start 04/28/17 at 09:00 Miscellaneous Information 1 ea NOTE XX ; Start 04/27/17 at 23:45 Glucose (Glutose) 15 gm Q15M PRN PO DECREASED GLUCOSE; Start 04/27/17 at 23:45 Glucose (Glutose) 22.5 gm Q15M PRN PO DECREASED GLUCOSE; Start 04/27/17 at 23: 45 Dextrose (D50w Syringe) 25 ml Q15M PRN IV DECREASED GLUCOSE; Start 04/27/17 at 23:45 Dextrose (D50w Syringe) 50 ml Q15M PRN IV DECREASED GLUCOSE; Start 04/27/17 at 23:45 Glucagon (Glucagen) 1 mg Q15M PRN IM DECREASED GLUCOSE; Start 04/27/17 at 23:45 Glucose (Glutose) 15 gm Q15M PRN BUCCAL DECREASED GLUCOSE; Start 04/27/17 at 23 :45 Diagnostic Test (Pha) (Accu-Chek) 1 ea 02 XX Last administered on 05/01/17 01: 34; Admin Dose 1 EA; Start 04/29/17 at 02:00 Insulin Glargine (Lantus) 18 unit DAILY@08 SC Last administered on 05/02/17 08 :36; Admin Dose 18 UNIT; Start 04/29/17 at 08:00 Dabigatran (PRADaxa) 150 mg BID PO Last administered on 05/02/17 08:27; Admin Dose 150 MG; Start 04/28/17 at 21:00 Linagliptin (Tradjenta) 5 mg DAILY PO Last administered on 05/02/17 08:25; Admin Dose 5 MG; Start 04/29/17 at 10:00 Atorvastatin Calcium (Lipitor) 40 mg HS PO Last administered on 6/18/17at 20:47 ; Admin Dose 40 MG; Start 04/30/17 at 21:00 Procedures Procedures PROCEDURE: Chest Radiograph. CLINICAL INDICATION: Pulmonary edema TECHNIQUE: Single frontal chest radiograph. COMPARISON: Chest radiograph 04/30/2017 FINDINGS: A left chest wall implantable pacer/defibrillator remains in place. A right internal jugular venous catheter is unchanged. The patient is status post sternotomy.. The heart remains enlarged. There is slightly improved central vascular congestion and pulmonary edema. No confluent or lobar infiltrate is seen. The bones are intact. IMPRESSION: 1. Slightly improved central vascular congestion and pulmonary edema. 2. Otherwise stable radiographic appearance of chest compared 04/30/2017. SILAS PRO May 02, 2017 11:01
[2017-05-02 11:33] LABS: CALCIUM 8.9 mg/dl (8.4-10.2); CREATININE 0.84 mg/dl (0.61-1.24); POTASSIUM 3.6 mmol/L (3.5-5.1)
[2017-05-02] MEDS ORDERED: POTASSIUM CHLORIDE (SR) 20 MEQ TAB PO STA (13:10)
--- NOTE | 2017-05-02 15:22 | CONS ---
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 In review of telemetry, patient tachycardia, possible atrial flutter with 2-1. Would DC Lasix, continue antiplatelet therapy and anticoagulant if no contraindication. Would request repeat device interrogation. Maintain potassium above 4.0 and magnesium above 2.0. Consultation Date/Type/Reason Admit Date/Time Apr 27, 2017 at 21:55 Type of Consultation: cv 24 HR Interval Summary Free Text/Dictation Denies shortness of breath. Complains of fatigue with ambulation. Denies dizziness or palpitations Exam/Review of Systems Vital Signs Vitals Vital Signs Date Time Temp Pulse Resp B/P Pulse Ox O2 Delivery O2 Flow Rate FiO2 05/02/17 12:12 111 05/02/17 03:10 98.0 19 91/53 98 05/02/17 00:00 Room Air 05/01/17 20:51 21 05/01/17 07:00 2.0 Intake and Output 05/01/17 05/01/17 05/02/17 15:00 23:00 07:00 Intake Total 480 ml 340 ml Output Total 1000 ml 400 ml Balance -520 ml -60 ml Exam No apparent distress, sitting in bed Constitutional: alert, oriented Head: normocephalic Neck: supple Respiratory: other (Coarse breath sounds bilaterally, no wheezing) Cardiovascular: other (S1-S2 heard), regular rate and rhythm Gastrointestinal: bowel sounds, non-tender, soft Extremities: edema Results Result Diagram: 05/02/17 1000 05/02/17 1000 Results 24 hrs Laboratory Tests Test 05/01/17 18:04 05/01/17 20:51 05/02/17 01:55 05/02/17 08:19 Bedside Glucose 157 204 148 130 Test 05/02/17 10:00 05/02/17 12:39 White Blood Count 7.9 Red Blood Count 4.43 L Hemoglobin 11.9 L Hematocrit 36.4 L Mean Corpuscular Volume 82.2 Mean Corpuscular Hemoglobin 26.9 L Mean Corpuscular Hemoglobin Concent 32.7 Red Cell Distribution Width 14.1 Platelet Count 330 Mean Platelet Volume 10.6 H Neutrophils % 77.5 H Lymphocytes % 13.1 L Monocytes % 8.1 Eosinophils % 0.5 Basophils % 0.3 Nucleated Red Blood Cells % 0.0 Neutrophils # 6.1 Lymphocytes # 1.0 Monocytes # 0.6 Eosinophils # 0.0 Basophils # 0.0 Nucleated Red Blood Cells # 0.0 Sodium Level 128 L Potassium Level 3.6 Chloride Level 93 L Carbon Dioxide Level 27 Anion Gap 12 Blood Urea Nitrogen 21 H Creatinine 0.84 Glucose Level 200 Calcium Level 8.9 Magnesium Level 2.0 Bedside Glucose 161 Medications Medications Current Medications Aspirin (Aspirin) 81 mg DAILY PO Last administered on 05/02/17 08:25; Admin Dose 81 MG; Start 04/28/17 at 09:00 Amiodarone HCl (Cordarone) 200 mg DAILY PO Last administered on 05/02/17 11:32 ; Admin Dose 200 MG; Start 04/28/17 at 09:00 Ferrous Sulfate (Ferrous Sulfate (Ec)) 325 mg BID PO Last administered on 08:25; Admin Dose 325 MG; Start 04/27/17 at 21:00 Ondansetron HCl (Zofran Inj) 4 mg Q6H PRN IV NAUSEA AND/OR VOMITING; Start at 17:00 Nitroglycerin (Nitroglycerin (Sl Tab) 0.4 Mg) 1 tab Q5M PRN SL CHEST PAIN; Start 04/27/17 at 17:00 Acetaminophen (Tylenol Tab) 650 mg Q6H PRN PO PAIN LEVEL 1-3 OR FEVER; Start at 17:00 Morphine Sulfate (morphine) 2 mg Q4H PRN IV PAIN LEVEL 7-10 Last administered on 04/27/17 17:15; Admin Dose 2 MG; Start 04/27/17 at 17:00 Docusate Sodium (Colace) 100 mg Q12H PRN PO CONSTIPATION; Start 04/27/17 at 17: 00 Magnesium Hydroxide (Milk Of Mag) 30 ml DAILY PRN PO CONSTIPATION; Start at 17:00 Bisacodyl (Dulcolax Supp) 10 mg DAILY PRN [place] CONSTIPATION; Start 04/27/17 at 17 :00 Famotidine (Pepcid) 20 mg Q12 PO Last administered on 05/02/17 08:25; Admin Dose 20 MG; Start 04/27/17 at 21:00 Clopidogrel Bisulfate (plaVIX) 75 mg DAILY PO Last administered on 05/02/17 08 :24; Admin Dose 75 MG; Start 04/28/17 at 09:00 Miscellaneous Information 1 ea NOTE XX ; Start 04/27/17 at 23:45 Glucose (Glutose) 15 gm Q15M PRN PO DECREASED GLUCOSE; Start 04/27/17 at 23:45 Glucose (Glutose) 22.5 gm Q15M PRN PO DECREASED GLUCOSE; Start 04/27/17 at 23: 45 Dextrose (D50w Syringe) 25 ml Q15M PRN IV DECREASED GLUCOSE; Start 04/27/17 at 23:45 Dextrose (D50w Syringe) 50 ml Q15M PRN IV DECREASED GLUCOSE; Start 04/27/17 at 23:45 Glucagon (Glucagen) 1 mg Q15M PRN IM DECREASED GLUCOSE; Start 04/27/17 at 23:45 Glucose (Glutose) 15 gm Q15M PRN BUCCAL DECREASED GLUCOSE; Start 04/27/17 at 23 :45 Diagnostic Test (Pha) (Accu-Chek) 1 ea 02 XX Last administered on 05/01/17 01: 34; Admin Dose 1 EA; Start 04/29/17 at 02:00 Insulin Glargine (Lantus) 18 unit DAILY@08 SC Last administered on 05/02/17 08 :36; Admin Dose 18 UNIT; Start 04/29/17 at 08:00 Dabigatran (PRADaxa) 150 mg BID PO Last administered on 05/02/17 08:27; Admin Dose 150 MG; Start 04/28/17 at 21:00 Linagliptin (Tradjenta) 5 mg DAILY PO Last administered on 05/02/17 08:25; Admin Dose 5 MG; Start 04/29/17 at 10:00 Atorvastatin Calcium (Lipitor) 40 mg HS PO Last administered on 05/01/17 20:47 ; Admin Dose 40 MG; Start 04/30/17 at 21:00 Zaire Foster DO May 02, 2017 15:22
[2017-05-02] MEDS ORDERED: AMIODARONE 200 MG TAB PO STA (16:08)
[2017-05-02] MEDS ORDERED: MAGNESIUM SULFATE 1 GM/D5W 100 ML IVPB SCH (17:30)
[2017-05-02] MEDS: ATORVASTATIN 40 MG TAB PO SCH (20:54)
[2017-05-03] VITALS (9 sets, daily range): BP systolic 82–109; BP diastolic 57–65; PULSE 79–87; RESP 18–20
[2017-05-03] MEDS: ACCU-CHEK XX SCH (01:01)
[2017-05-03 07:53] LABS: MAGNESIUM 2.1 mg/dl (1.7-2.5); PHOSPHORUS 5.8 mg/dl (2.5-4.9)
[2017-05-03 07:59] LABS: ALBUMIN 3.8 g/dl (3.3-4.9); ALBUMIN/GLOBULIN RATIO 1.35; CALCIUM 9.3 mg/dl (8.4-10.2); CREATININE 0.9 mg/dl (0.61-1.24); TOTAL PROTEIN 6.6 g/dl (6.1-8.1)
[2017-05-03 08:10] LABS: POTASSIUM 5.1 mmol/L (3.5-5.1)
[2017-05-03] MEDS: INSULIN ASPART [NOVOLOG] 3 ML PEN SC SCH ×7 (08:43→19:56)
[2017-05-03] MEDS: INSULIN GLARGINE [LANtus] 3 ML PEN SC SCH (08:44)
[2017-05-03] MEDS: AMIODARONE 200 MG TAB PO SCH ×2 (08:48→20:01)
[2017-05-03] MEDS: ASPIRIN 81 MG TAB PO SCH (08:49)
[2017-05-03] MEDS: FERROUS SULFATE (EC) 325 MG TAB PO SCH ×2 (08:49→20:01)
[2017-05-03] MEDS: CLOPIDOGREL 75 MG TAB PO SCH (08:49)
[2017-05-03] MEDS: FAMOTIDINE 20 MG TAB PO SCH ×2 (08:49→20:01)
[2017-05-03] MEDS: DABIGATRAN 150 MG CAP PO SCH ×2 (08:49→20:01)
[2017-05-03] MEDS: LINAGLIPTIN 5 MG TABLET PO SCH (09:41)
--- NOTE | 2017-05-03 12:54 | PN ---
Date/Time of Note Date/Time of Note DATE: 05/03/17 TIME: 12:47 Assessment/Plan VTE Prophylaxis VTE Prophylaxis Intervention: SCD's Lines/Catheters IV Catheter Type (from Nrsg): Central Line Central line still needed: Yes (for IV access ) Urinary Cath still in place: No Assessment/Plan Assessment/Plan 46-year-old male with: 1. 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 On dual antiplatelets and better hemodynamics this AM, transferred back to [facility] from ICU overnight. Still with SBP upper 80's to 90's Also limited exercise tolerance and orthopnea. On Amiodarone Follow up further Cardio recs today 2. Uncontrolled Diabetes mellitus with A1c above hospital range On Lantus, premeal Novolog and Tradjenta, better controlled BG, also on SSI and ADA diet. DM education and requesting Nutrition consult. 3. Hypotension. Currently, BP still on low side and somewhat tolerated. On fluid restriction with Hyponatremia. Discussing diuresis with Cardio 4. Transaminitis, significant, ? shock liver with recent hypotensive episode, hep panel pending, monitor LFTs and d/c statins for now. 5. Hyperlipidemia. Needs better control, given significant transaminitis, d/c Lipitor. 6. Paroxysmal atrial fibrillation, s/p cardioversion yesterday for episode of A flutter. On Amiodarone, continuing Pradaxa. 7. Ischemic cardiomyopathy with ejection fraction of 35%. Volume status difficult to balance out. Will discuss with Cardiology diuresis options, ? short run of Bumex gtt? Monitor electrolytes and UOP 8. Hypokalemia. improved. Replete prn. 9. Hyponatremia, still persistent. Unclear volume status but continue fluid restriction and diuresis as tolerated. F/u labs in AM. Prophylaxis: Sequential compression devices to lower extremities for deep vein thrombosis prophylaxis. Pepcid for gastrointestinal prophylaxis. DISPOSITION: Follow up Cardiology recs this AM today Subjective 24 Hr Interval Summary Free Text/Dictation Patient still with decrease exercise tolerance and orthopnea, also noted to have decreased UOP Patient was converted out of A flutter yesterday and on Amiodarone now Exam/Review of Systems Vital Signs Vitals Vital Signs Date Time Temp Pulse Resp B/P Pulse Ox O2 Delivery O2 Flow Rate FiO2 05/03/17 12:22 83 05/03/17 08:01 98.4 18 91/65 100 05/03/17 08:00 Room Air 05/01/17 20:51 21 05/01/17 07:00 2.0 Intake and Output 05/02/17 05/02/17 05/03/17 15:00 23:00 07:00 Intake Total 250 ml Output Total 350 ml Balance -100 ml Exam Constitutional: alert, oriented, well developed Respiratory: diminished breath sounds (bases bilaterally ), normal air movement Cardiovascular: regular rate and rhythm Gastrointestinal: non-tender, soft Musculoskeletal: nl extremities to inspection Extremities: normal pulses, other (no edema, clubbing or cyanosis ) Neurological: WATERSHED TENDER II-XII intact, nl mental status, nl speech, nl strength ( limited by poor exercise tolerance ) Results Result Diagram: 05/02/17 1000 05/03/17 0612 Results 24 hrs Laboratory Tests Test 05/02/17 17:21 05/02/17 20:48 05/03/17 06:12 05/03/17 06:26 Bedside Glucose 128 166 Sodium Level 126 L Potassium Level 5.1 Chloride Level 92 L Carbon Dioxide Level 25 Anion Gap 14 Blood Urea Nitrogen 20 Creatinine 0.90 Glucose Level 170 Calcium Level 9.3 Total Bilirubin 1.0 Direct Bilirubin 0.00 Indirect Bilirubin 1.0 Aspartate Amino Transf (AST/SGOT) 1032 H Alanine Aminotransferase (ALT/SGPT) 493 H Alkaline Phosphatase 388 H Total Protein 6.6 Albumin 3.8 Globulin 2.80 Albumin/Globulin Ratio 1.35 Phosphorus Level 5.8 H Magnesium Level 2.1 Test 05/03/17 08:30 05/03/17 11:46 Bedside Glucose 162 160 Medications Medications Current Medications Aspirin (Aspirin) 81 mg DAILY PO Last administered on 05/03/17 08:49; Admin Dose 81 MG; Start 04/28/17 at 09:00 Ferrous Sulfate (Ferrous Sulfate (Ec)) 325 mg BID PO Last administered on 08:49; Admin Dose 325 MG; Start 04/27/17 at 21:00 Ondansetron HCl (Zofran Inj) 4 mg Q6H PRN IV NAUSEA AND/OR VOMITING; Start at 17:00 Nitroglycerin (Nitroglycerin (Sl Tab) 0.4 Mg) 1 tab Q5M PRN SL CHEST PAIN; Start 04/27/17 at 17:00 Acetaminophen (Tylenol Tab) 650 mg Q6H PRN PO PAIN LEVEL 1-3 OR FEVER; Start at 17:00 Morphine Sulfate (morphine) 2 mg Q4H PRN IV PAIN LEVEL 7-10 Last administered on 04/27/17 17:15; Admin Dose 2 MG; Start 04/27/17 at 17:00 Docusate Sodium (Colace) 100 mg Q12H PRN PO CONSTIPATION; Start 04/27/17 at 17: 00 Magnesium Hydroxide (Milk Of Mag) 30 ml DAILY PRN PO CONSTIPATION; Start at 17:00 Bisacodyl (Dulcolax Supp) 10 mg DAILY PRN [place] CONSTIPATION; Start 04/27/17 at 17 :00 Famotidine (Pepcid) 20 mg Q12 PO Last administered on 05/03/17 08:49; Admin Dose 20 MG; Start 04/27/17 at 21:00 Clopidogrel Bisulfate (plaVIX) 75 mg DAILY PO Last administered on 05/03/17 08 :49; Admin Dose 75 MG; Start 04/28/17 at 09:00 Miscellaneous Information 1 ea NOTE XX ; Start 04/27/17 at 23:45 Glucose (Glutose) 15 gm Q15M PRN PO DECREASED GLUCOSE; Start 04/27/17 at 23:45 Glucose (Glutose) 22.5 gm Q15M PRN PO DECREASED GLUCOSE; Start 04/27/17 at 23: 45 Dextrose (D50w Syringe) 25 ml Q15M PRN IV DECREASED GLUCOSE; Start 04/27/17 at 23:45 Dextrose (D50w Syringe) 50 ml Q15M PRN IV DECREASED GLUCOSE; Start 04/27/17 at 23:45 Glucagon (Glucagen) 1 mg Q15M PRN IM DECREASED GLUCOSE; Start 04/27/17 at 23:45 Glucose (Glutose) 15 gm Q15M PRN BUCCAL DECREASED GLUCOSE; Start 04/27/17 at 23 :45 Diagnostic Test (Pha) (Accu-Chek) 1 ea 02 XX Last administered on 05/01/17 01: 34; Admin Dose 1 EA; Start 04/29/17 at 02:00 Insulin Glargine (Lantus) 18 unit DAILY@08 SC Last administered on 05/03/17 08 :44; Admin Dose 18 UNIT; Start 04/29/17 at 08:00 Dabigatran (PRADaxa) 150 mg BID PO Last administered on 05/03/17 08:49; Admin Dose 150 MG; Start 04/28/17 at 21:00 Linagliptin (Tradjenta) 5 mg DAILY PO Last administered on 05/03/17 09:41; Admin Dose 5 MG; Start 04/29/17 at 10:00 Atorvastatin Calcium (Lipitor) 40 mg HS PO Last administered on 05/02/17 20:54 ; Admin Dose 40 MG; Start 04/30/17 at 21:00 Amiodarone HCl (Cordarone) 400 mg BID PO Last administered on 05/03/17 08:48; Admin Dose 400 MG; Start 05/02/17 at 16:13 SILAS PRO May 03, 2017 12:54
[2017-05-03 13:02] LABS: HAAIG REFLEX REFLEX FILED
--- NOTE | 2017-05-03 13:17 | CONS ---
Date/Time of Note Date/Time of Note DATE: 05/03/17 TIME: 13:15 Assessment/Plan Assessment/Plan Additional Assessment/Plan Non-ST elevation [place] status post intervention with balloon angioplasty and stenting to left subclavian proximal to BARRERA takeoff Coronary artery disease with history of CABG Ischemic cardiomyopathy with ejection fraction 25% and history of ICD Diabetes, uncontrolled Atrial fibrillation/flutter, paroxysmal, on anticoagulation CHF systolic and diastolic acute and chronic Elevated LFTs -Patient still with episodes of hypotension and likely evidence of volume overload on examination. Hypotension is limiting factor for diuresis. Would give 1 dose of IV Lasix now and see how patient responds. Agree with holding statin therapy given elevated LFTs and would follow trend. Would check chest x- ray in a.m. Consultation Date/Type/Reason Admit Date/Time Apr 27, 2017 at 21:55 Type of Consultation: cv 24 HR Interval Summary Free Text/Dictation Complains of shortness of breath with lying down and with ambulation still. Denies dizziness Exam/Review of Systems Vital Signs Vitals Vital Signs Date Time Temp Pulse Resp B/P Pulse Ox O2 Delivery O2 Flow Rate FiO2 05/03/17 12:22 83 05/03/17 08:01 98.4 18 91/65 100 05/03/17 08:00 Room Air 05/01/17 20:51 21 05/01/17 07:00 2.0 Intake and Output 05/02/17 05/02/17 05/03/17 15:00 23:00 07:00 Intake Total 250 ml Output Total 350 ml Balance -100 ml Exam Sitting up in bed, no apparent distress Constitutional: alert, oriented Respiratory: other (Coarse breath sounds bilaterally, no wheezing) Cardiovascular: other (S1-S2 heard), regular rate and rhythm Gastrointestinal: bowel sounds, non-tender, soft Extremities: edema Results Result Diagram: 05/02/17 1000 05/03/17 0612 Results 24 hrs Laboratory Tests Test 05/02/17 17:21 05/02/17 20:48 05/03/17 06:12 05/03/17 06:26 Bedside Glucose 128 166 Sodium Level 126 L Potassium Level 5.1 Chloride Level 92 L Carbon Dioxide Level 25 Anion Gap 14 Blood Urea Nitrogen 20 Creatinine 0.90 Glucose Level 170 Calcium Level 9.3 Total Bilirubin 1.0 Direct Bilirubin 0.00 Indirect Bilirubin 1.0 Aspartate Amino Transf (AST/SGOT) 1032 H Alanine Aminotransferase (ALT/SGPT) 493 H Alkaline Phosphatase 388 H Total Protein 6.6 Albumin 3.8 Globulin 2.80 Albumin/Globulin Ratio 1.35 Phosphorus Level 5.8 H Magnesium Level 2.1 Hepatitis B Surface Antigen Pending Hepatitis B Core Total Antibody Pending Hepatitis C Antibody Pending Test 05/03/17 08:30 05/03/17 11:46 Bedside Glucose 162 160 Medications Medications Current Medications Aspirin (Aspirin) 81 mg DAILY PO Last administered on 05/03/17 08:49; Admin Dose 81 MG; Start 04/28/17 at 09:00 Ferrous Sulfate (Ferrous Sulfate (Ec)) 325 mg BID PO Last administered on 08:49; Admin Dose 325 MG; Start 04/27/17 at 21:00 Ondansetron HCl (Zofran Inj) 4 mg Q6H PRN IV NAUSEA AND/OR VOMITING; Start at 17:00 Nitroglycerin (Nitroglycerin (Sl Tab) 0.4 Mg) 1 tab Q5M PRN SL CHEST PAIN; Start 04/27/17 at 17:00 Acetaminophen (Tylenol Tab) 650 mg Q6H PRN PO PAIN LEVEL 1-3 OR FEVER; Start at 17:00 Morphine Sulfate (morphine) 2 mg Q4H PRN IV PAIN LEVEL 7-10 Last administered on 04/27/17 17:15; Admin Dose 2 MG; Start 04/27/17 at 17:00 Docusate Sodium (Colace) 100 mg Q12H PRN PO CONSTIPATION; Start 04/27/17 at 17: 00 Magnesium Hydroxide (Milk Of Mag) 30 ml DAILY PRN PO CONSTIPATION; Start at 17:00 Bisacodyl (Dulcolax Supp) 10 mg DAILY PRN [place] CONSTIPATION; Start 04/27/17 at 17 :00 Famotidine (Pepcid) 20 mg Q12 PO Last administered on 05/03/17 08:49; Admin Dose 20 MG; Start 04/27/17 at 21:00 Clopidogrel Bisulfate (plaVIX) 75 mg DAILY PO Last administered on 05/03/17 08 :49; Admin Dose 75 MG; Start 04/28/17 at 09:00 Miscellaneous Information 1 ea NOTE XX ; Start 04/27/17 at 23:45 Glucose (Glutose) 15 gm Q15M PRN PO DECREASED GLUCOSE; Start 04/27/17 at 23:45 Glucose (Glutose) 22.5 gm Q15M PRN PO DECREASED GLUCOSE; Start 04/27/17 at 23: 45 Dextrose (D50w Syringe) 25 ml Q15M PRN IV DECREASED GLUCOSE; Start 04/27/17 at 23:45 Dextrose (D50w Syringe) 50 ml Q15M PRN IV DECREASED GLUCOSE; Start 04/27/17 at 23:45 Glucagon (Glucagen) 1 mg Q15M PRN IM DECREASED GLUCOSE; Start 04/27/17 at 23:45 Glucose (Glutose) 15 gm Q15M PRN BUCCAL DECREASED GLUCOSE; Start 04/27/17 at 23 :45 Diagnostic Test (Pha) (Accu-Chek) 1 ea 02 XX Last administered on 05/01/17 01: 34; Admin Dose 1 EA; Start 04/29/17 at 02:00 Insulin Glargine (Lantus) 18 unit DAILY@08 SC Last administered on 05/03/17 08 :44; Admin Dose 18 UNIT; Start 04/29/17 at 08:00 Dabigatran (PRADaxa) 150 mg BID PO Last administered on 05/03/17 08:49; Admin Dose 150 MG; Start 04/28/17 at 21:00 Linagliptin (Tradjenta) 5 mg DAILY PO Last administered on 05/03/17 09:41; Admin Dose 5 MG; Start 04/29/17 at 10:00 Amiodarone HCl (Cordarone) 400 mg BID PO Last administered on 05/03/17 08:48; Admin Dose 400 MG; Start 05/02/17 at 16:13 Furosemide (Lasix) 20 mg ONCE ONCE IV ; Start 05/03/17 at 13:30; Stop 05/03/17 at 13:31; Status Zaire Oh DO May 03, 2017 13:16
[2017-05-03] MEDS ORDERED: FUROSEMIDE 20 MG INJ IV ONE ×2 (13:30→20:00)
[2017-05-03 14:25] LABS: HEPATITIS B CORE ANTIBODY NEGATIVE (NEGATIVE)
[2017-05-04] VITALS (16 sets, daily range): BP systolic 88–105; BP diastolic 51–61; PULSE 79–94; RESP 18–21
[2017-05-04] MEDS: ACCU-CHEK XX SCH ×2 (02:00→17:27)
[2017-05-04] MEDS: FUROSEMIDE 20 MG INJ IV SCH ×2 (05:22→17:34)
[2017-05-04 07:58] LABS: INR 1.65; PROTIME 19.6 Sec (12.2-14.2); PT RATIO 1.5
[2017-05-04 07:59] LABS: PARTIAL THROMBOPLASTIN TIME 53.8 Sec (25.0-35.0)
[2017-05-04] MEDS: INSULIN ASPART [NOVOLOG] 3 ML PEN SC SCH ×7 (08:00→21:00)
[2017-05-04 08:11] LABS: MAGNESIUM 1.9 mg/dl (1.7-2.5); PHOSPHORUS 3.9 mg/dl (2.5-4.9)
[2017-05-04] MEDS: FAMOTIDINE 20 MG TAB PO SCH ×2 (08:15→22:20)
[2017-05-04] MEDS: CLOPIDOGREL 75 MG TAB PO SCH (08:15)
[2017-05-04] MEDS: LINAGLIPTIN 5 MG TABLET PO SCH (08:15)
[2017-05-04] MEDS: FERROUS SULFATE (EC) 325 MG TAB PO SCH ×2 (08:15→22:20)
[2017-05-04] MEDS: AMIODARONE 200 MG TAB PO SCH ×2 (08:15→22:21)
[2017-05-04] MEDS: DABIGATRAN 150 MG CAP PO SCH ×2 (08:15→22:50)
[2017-05-04] MEDS: ASPIRIN 81 MG TAB PO SCH (08:15)
[2017-05-04] MEDS: INSULIN GLARGINE [LANtus] 3 ML PEN SC SCH (08:26)
--- NOTE | 2017-05-04 10:10 | RADRPT ---
PROCEDURE: XR Chest 1 view. CLINICAL INDICATION: Shortness of breath. TECHNIQUE: AP views of the chest were obtained. COMPARISON: May 02, 2017 FINDINGS: The heart is large. Calcified atherosclerosis is noted in the aorta. Left-sided dual chamber pacema ker/defibrillator has its leads over the heart. Median sternotomy wires overlie the heart. Right-s ided central line is stable. Mild central pulmonary vascular congestion and interstitial prominence in both lungs is unchanged. Mild potential alveolar infiltrates in the left lower lobe are stable. The osseous structures appear grossly intact. IMPRESSION: Cardiomegaly with calcified atherosclerosis in the aorta. Stable central pulmonary vascular congestion and interstitial prominence in both lungs. Stable mild potential alveolar infiltrates in the left lower lobe. RPTAT: AA .Zachary Martinez MD, Date Time Electronically viewed and signed by .Zachary Martinez MD, on 05/04/2017 10:09 .P/
[2017-05-04 11:08] LABS: ALBUMIN 3.7 g/dl (3.3-4.9); ALBUMIN/GLOBULIN RATIO 1.15; BILIRUBIN,INDIRECT 0.7 mg/dl (0-1.1); BILIRUBIN,TOTAL 0.7 mg/dl (0.2-1.3); CALCIUM 8.9 mg/dl (8.4-10.2); CREATININE 0.84 mg/dl (0.61-1.24); POTASSIUM 3.2 mmol/L (3.5-5.1); TOTAL PROTEIN 6.9 g/dl (6.1-8.1)
--- NOTE | 2017-05-04 11:18 | PN ---
Date/Time of Note Date/Time of Note DATE: 05/04/17 TIME: 11:08 Assessment/Plan VTE Prophylaxis VTE Prophylaxis Intervention: other (on Pradaxa ) Lines/Catheters IV Catheter Type (from Nrsg): Central Line Central line still needed: Yes (for IV access ) Urinary Cath still in place: No Assessment/Plan Assessment/Plan 46-year-old male with: 1. 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 On dual antiplatelets and better hemodynamics this AM even while being diuresed. Stable SBP in the 90's Better exercise tolerance and orthopnea. On Amiodarone Follow up further Cardio recs today 2. Uncontrolled Diabetes mellitus with A1c above hospital range On Lantus, premeal Novolog and Tradjenta, better controlled BG, also on SSI and ADA diet. DM education and requesting Nutrition consult. 3. Hypotension. Currently, BP stable with SBP in the 90's On diuresis, fluid restriction, 4. Transaminitis, significant, ? shock liver with recent hypotensive episode, hep panel negative. Improving LFTs and off statins for now. 5. Hyperlipidemia. Needs better control, given significant transaminitis, off Lipitor. 6. Paroxysmal atrial fibrillation and also episode of A flutter this AM, converted spontaneously. On Amiodarone, continuing Pradaxa. Repleting K and MAg 7. Ischemic cardiomyopathy with ejection fraction of 35%. On Lasix for diuresis and well tolerated so far. Good UOP Monitor electrolytes 8. Hypokalemia. improved. Replete prn and also repleting Mag. 9. Hyponatremia, improving with diuresis. Continue fluid restriction and diuresis as tolerated. Prophylaxis: Sequential compression devices to lower extremities for deep vein thrombosis prophylaxis. Pepcid for gastrointestinal prophylaxis. DISPOSITION: Follow up Cardiology recs today Subjective 24 Hr Interval Summary Free Text/Dictation Patient doing better today while on diuresis Less orthopnea and better exercise tolerance while being diuresed. 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, nl mental status, nl speech, nl strength Results Result Diagram: 05/02/17 1000 05/03/17 0612 Results 24 hrs Laboratory Tests Test 05/03/17 11:46 05/03/17 18:15 05/03/17 19:55 05/04/17 07:02 Bedside Glucose 160 138 110 Prothrombin Time 19.6 #H Prothrombin Time Ratio 1.5 INR International Normalized Ratio 1.65 Activated Partial Thromboplast Time 53.8 H Phosphorus Level 3.9 Magnesium Level 1.9 Test 05/04/17 08:13 Bedside Glucose 109 Medications Medications Current Medications Aspirin (Aspirin) 81 mg DAILY PO Last administered on 05/04/17 08:15; Admin Dose 81 MG; Start 04/28/17 at 09:00 Ferrous Sulfate (Ferrous Sulfate (Ec)) 325 mg BID PO Last administered on 08:15; Admin Dose 325 MG; Start 04/27/17 at 21:00 Ondansetron HCl (Zofran Inj) 4 mg Q6H PRN IV NAUSEA AND/OR VOMITING; Start at 17:00 Nitroglycerin (Nitroglycerin (Sl Tab) 0.4 Mg) 1 tab Q5M PRN SL CHEST PAIN; Start 04/27/17 at 17:00 Acetaminophen (Tylenol Tab) 650 mg Q6H PRN PO PAIN LEVEL 1-3 OR FEVER; Start at 17:00 Morphine Sulfate (morphine) 2 mg Q4H PRN IV PAIN LEVEL 7-10 Last administered on 04/27/17 17:15; Admin Dose 2 MG; Start 04/27/17 at 17:00 Docusate Sodium (Colace) 100 mg Q12H PRN PO CONSTIPATION; Start 04/27/17 at 17: 00 Magnesium Hydroxide (Milk Of Mag) 30 ml DAILY PRN PO CONSTIPATION; Start at 17:00 Bisacodyl (Dulcolax Supp) 10 mg DAILY PRN [place] CONSTIPATION; Start 04/27/17 at 17 :00 Famotidine (Pepcid) 20 mg Q12 PO Last administered on 05/04/17 08:15; Admin Dose 20 MG; Start 04/27/17 at 21:00 Clopidogrel Bisulfate (plaVIX) 75 mg DAILY PO Last administered on 05/04/17 08 :15; Admin Dose 75 MG; Start 04/28/17 at 09:00 Miscellaneous Information 1 ea NOTE XX ; Start 04/27/17 at 23:45 Glucose (Glutose) 15 gm Q15M PRN PO DECREASED GLUCOSE; Start 04/27/17 at 23:45 Glucose (Glutose) 22.5 gm Q15M PRN PO DECREASED GLUCOSE; Start 04/27/17 at 23: 45 Dextrose (D50w Syringe) 25 ml Q15M PRN IV DECREASED GLUCOSE; Start 04/27/17 at 23:45 Dextrose (D50w Syringe) 50 ml Q15M PRN IV DECREASED GLUCOSE; Start 04/27/17 at 23:45 Glucagon (Glucagen) 1 mg Q15M PRN IM DECREASED GLUCOSE; Start 04/27/17 at 23:45 Glucose (Glutose) 15 gm Q15M PRN BUCCAL DECREASED GLUCOSE; Start 04/27/17 at 23 :45 Diagnostic Test (Pha) (Accu-Chek) 1 ea 02 XX Last administered on 05/01/17 01: 34; Admin Dose 1 EA; Start 04/29/17 at 02:00 Insulin Glargine (Lantus) 18 unit DAILY@08 SC Last administered on 05/04/17 08 :26; Admin Dose 18 UNIT; Start 04/29/17 at 08:00 Dabigatran (PRADaxa) 150 mg BID PO Last administered on 05/04/17 08:15; Admin Dose 150 MG; Start 04/28/17 at 21:00 Linagliptin (Tradjenta) 5 mg DAILY PO Last administered on 05/04/17 08:15; Admin Dose 5 MG; Start 04/29/17 at 10:00 Amiodarone HCl (Cordarone) 400 mg BID PO Last administered on 05/04/17 08:15; Admin Dose 400 MG; Start 05/02/17 at 16:13 Procedures Procedures PROCEDURE: XR Chest 1 view. CLINICAL INDICATION: Shortness of breath. TECHNIQUE: AP views of the chest were obtained. COMPARISON: May 02, 2017 FINDINGS: The heart is large. Calcified atherosclerosis is noted in the aorta. Left- sided dual chamber pacemaker/defibrillator has its leads over the heart. Median sternotomy wires overlie the heart. Right-sided central line is stable. Mild central pulmonary vascular congestion and interstitial prominence in both lungs is unchanged. Mild potential alveolar infiltrates in the left lower lobe are stable. The osseous structures appear grossly intact. IMPRESSION: Cardiomegaly with calcified atherosclerosis in the aorta. Stable central pulmonary vascular congestion and interstitial prominence in both lungs. Stable mild potential alveolar infiltrates in the left lower lobe. RPTAT: AA .Zachary Martinez MD, MD Date Time Electronically viewed and signed by .Zachary Martinez MD, MD on 05/04/2017 10:09 SILAS PRO May 04, 2017 11:18
[2017-05-04] MEDS ORDERED: POTASSIUM CHLORIDE (SR) 20 MEQ TAB PO STA (11:19)
[2017-05-04] MEDS ORDERED: MAGNESIUM SULFATE 1 GM/D5W 100 ML IVPB ONE (12:00)
--- NOTE | 2017-05-04 12:08 | CONS ---
Date/Time of Note Date/Time of Note DATE: 05/04/17 TIME: 12:05 Assessment/Plan Assessment/Plan Additional Assessment/Plan Non-ST elevation [place] status post intervention with balloon angioplasty and stenting to left subclavian proximal to BARRERA takeoff Coronary artery disease with history of CABG Ischemic cardiomyopathy with ejection fraction 25% and history of ICD Diabetes, uncontrolled Atrial fibrillation/flutter, paroxysmal, on anticoagulation CHF systolic and diastolic acute and chronic Elevated LFTs -Patient with brief recurrent episode of atrial flutter this morning but self terminated. Would continue current dose of amiodarone and decrease to 200 mg twice a day upon discharge. Patient with significant improvement in symptoms with IV diuretics. Would continue IV Lasix for today. Switch to p.o. Lasix tomorrow. Continue Plavix and anticoagulation and DC aspirin upon discharge. LFTs are improving, restart statin therapy in the next 1-2 days if LFTs continue to improve. Maintain potassium above 4.0 and magnesium above 2.0. Consultation Date/Type/Reason Admit Date/Time Apr 27, 2017 at 21:55 Type of Consultation: cv 24 HR Interval Summary Free Text/Dictation Patient with significant improvement in shortness of breath with lying down flat and ambulation today. Denies chest pain or palpitation Exam/Review of Systems Vital Signs Vitals Vital Signs Date Time Temp Pulse Resp B/P Pulse Ox O2 Delivery O2 Flow Rate FiO2 05/04/17 08:15 92 05/04/17 05:21 95/55 05/04/17 05:19 97.5 20 99 Room Air 05/01/17 20:51 21 05/01/17 07:00 2.0 Exam No apparent distress Constitutional: alert, oriented Head: normocephalic Neck: supple Respiratory: other (Coarse breath sounds bilaterally, no wheezing) Cardiovascular: other (S1-S2 heard), regular rate and rhythm Gastrointestinal: bowel sounds, non-tender, soft Extremities: edema Results Result Diagram: 05/02/17 1000 05/04/17 0702 Results 24 hrs Laboratory Tests Test 05/03/17 18:15 05/03/17 19:55 05/04/17 07:02 05/04/17 08:13 Bedside Glucose 138 110 109 Prothrombin Time 19.6 #H Prothrombin Time Ratio 1.5 INR International Normalized Ratio 1.65 Activated Partial Thromboplast Time 53.8 H Sodium Level 133 L Potassium Level 3.2 L Chloride Level 94 L Carbon Dioxide Level 27 Anion Gap 15 Blood Urea Nitrogen 19 Creatinine 0.84 Glucose Level 135 Calcium Level 8.9 Phosphorus Level 3.9 Magnesium Level 1.9 Total Bilirubin 0.7 Direct Bilirubin 0.00 Indirect Bilirubin 0.7 Aspartate Amino Transf (AST/SGOT) 712 H Alanine Aminotransferase (ALT/SGPT) 493 H Alkaline Phosphatase 331 H Total Protein 6.9 Albumin 3.7 Globulin 3.20 Albumin/Globulin Ratio 1.15 Medications Medications Current Medications Aspirin (Aspirin) 81 mg DAILY PO Last administered on 05/04/17 08:15; Admin Dose 81 MG; Start 04/28/17 at 09:00 Ferrous Sulfate (Ferrous Sulfate (Ec)) 325 mg BID PO Last administered on 08:15; Admin Dose 325 MG; Start 04/27/17 at 21:00 Ondansetron HCl (Zofran Inj) 4 mg Q6H PRN IV NAUSEA AND/OR VOMITING; Start at 17:00 Nitroglycerin (Nitroglycerin (Sl Tab) 0.4 Mg) 1 tab Q5M PRN SL CHEST PAIN; Start 04/27/17 at 17:00 Acetaminophen (Tylenol Tab) 650 mg Q6H PRN PO PAIN LEVEL 1-3 OR FEVER; Start at 17:00 Morphine Sulfate (morphine) 2 mg Q4H PRN IV PAIN LEVEL 7-10 Last administered on 04/27/17 17:15; Admin Dose 2 MG; Start 04/27/17 at 17:00 Docusate Sodium (Colace) 100 mg Q12H PRN PO CONSTIPATION; Start 04/27/17 at 17: 00 Magnesium Hydroxide (Milk Of Mag) 30 ml DAILY PRN PO CONSTIPATION; Start at 17:00 Bisacodyl (Dulcolax Supp) 10 mg DAILY PRN [place] CONSTIPATION; Start 04/27/17 at 17 :00 Famotidine (Pepcid) 20 mg Q12 PO Last administered on 05/04/17 08:15; Admin Dose 20 MG; Start 04/27/17 at 21:00 Clopidogrel Bisulfate (plaVIX) 75 mg DAILY PO Last administered on 05/04/17 08 :15; Admin Dose 75 MG; Start 04/28/17 at 09:00 Miscellaneous Information 1 ea NOTE XX ; Start 04/27/17 at 23:45 Glucose (Glutose) 15 gm Q15M PRN PO DECREASED GLUCOSE; Start 04/27/17 at 23:45 Glucose (Glutose) 22.5 gm Q15M PRN PO DECREASED GLUCOSE; Start 04/27/17 at 23: 45 Dextrose (D50w Syringe) 25 ml Q15M PRN IV DECREASED GLUCOSE; Start 04/27/17 at 23:45 Dextrose (D50w Syringe) 50 ml Q15M PRN IV DECREASED GLUCOSE; Start 04/27/17 at 23:45 Glucagon (Glucagen) 1 mg Q15M PRN IM DECREASED GLUCOSE; Start 04/27/17 at 23:45 Glucose (Glutose) 15 gm Q15M PRN BUCCAL DECREASED GLUCOSE; Start 04/27/17 at 23 :45 Diagnostic Test (Pha) (Accu-Chek) 1 ea 02 XX Last administered on 05/01/17 01: 34; Admin Dose 1 EA; Start 04/29/17 at 02:00 Insulin Glargine (Lantus) 18 unit DAILY@08 SC Last administered on 05/04/17 08 :26; Admin Dose 18 UNIT; Start 04/29/17 at 08:00 Dabigatran (PRADaxa) 150 mg BID PO Last administered on 05/04/17 08:15; Admin Dose 150 MG; Start 04/28/17 at 21:00 Linagliptin (Tradjenta) 5 mg DAILY PO Last administered on 05/04/17 08:15; Admin Dose 5 MG; Start 04/29/17 at 10:00 Amiodarone HCl 400 mg 400 mg BID PO Last administered on 05/04/17 08:15; Admin Dose 400 MG; Start 05/02/17 at 16:13 Magnesium Sulfate/ Dextrose (Magnesium Sulfate 1 Gm/D5W) 100 ml @ 100 mls/hr ONCE ONCE IVPB ; Start 05/04/17 at 12:00; Stop 05/04/17 at 12:59 Zaire Foster DO May 04, 2017 12:08
[2017-05-04] MEDS ORDERED: POTASSIUM CHLORIDE (SR) 20 MEQ TAB PO ONE (18:30)
[2017-05-04] MEDS ORDERED: FUROSEMIDE 20 MG TAB PO ONE (22:30)
[2017-05-05] VITALS (11 sets, daily range): BP systolic 82–96; BP diastolic 51–68; PULSE 79–90; RESP 18–20
[2017-05-05] MEDS: FUROSEMIDE 20 MG TAB PO SCH ×2 (06:36→17:56)
[2017-05-05 07:57] LABS: ADD SCAN DIFF NO
[2017-05-05] MEDS: INSULIN ASPART [NOVOLOG] 3 ML PEN SC SCH ×7 (08:00→21:00)
[2017-05-05 08:17] LABS: BASOPHIL # 0.1 10^3/ul (0.0-0.1); BASOPHILS % 0.6 % (0.0-2.0); EOSINOPHILS % 0.3 % (0.0-7.0); HEMATOCRIT 37.5 % (42.0-52.0); HEMOGLOBIN 12.3 g/dl (14.0-18.0); LYMPHOCYTES # 1.2 10^3/ul (0.8-2.9); LYMPHOCYTES % 12.3 % (15.0-51.0); MEAN CORPUSCULAR HEMOGLOBIN 27.3 pg (29.0-33.0); MEAN CORPUSCULAR HGB CONC 32.8 g/dl (32.0-37.0); MEAN CORPUSCULAR VOLUME 83.1 fl (82.0-101.0); MONOCYTE # 0.8 10^3/ul (0.3-0.9); MONOCYTES % 7.9 % (0.0-11.0); NEUTROPHIL # 7.8 10^3/ul (1.6-7.5); NEUTROPHILS % 78.3 % (39.0-77.0); NUCLEATED RED BLOOD CELLS% 0.2 /100WBC (0.0-0.0); PLATELET COUNT 382 10^3/UL (140-415); RED BLOOD COUNT 4.51 10^6/ul (4.70-6.10); RED CELL DISTRIBUTION WIDTH 14.9 % (11.5-14.5); WHITE BLOOD COUNT 9.9 10^3/ul (4.8-10.8)
[2017-05-05 08:34] LABS: ALBUMIN 4.2 g/dl (3.3-4.9); ALBUMIN/GLOBULIN RATIO 1.23; BILIRUBIN,INDIRECT 0.9 mg/dl (0-1.1); BILIRUBIN,TOTAL 0.9 mg/dl (0.2-1.3); CALCIUM 9.1 mg/dl (8.4-10.2); CREATININE 1.04 mg/dl (0.61-1.24); POTASSIUM 4.8 mmol/L (3.5-5.1); TOTAL PROTEIN 7.6 g/dl (6.1-8.1)
[2017-05-05] MEDS: CLOPIDOGREL 75 MG TAB PO SCH (08:43)
[2017-05-05] MEDS: LINAGLIPTIN 5 MG TABLET PO SCH (08:44)
[2017-05-05] MEDS: FAMOTIDINE 20 MG TAB PO SCH ×2 (08:44→21:00)
[2017-05-05] MEDS: FERROUS SULFATE (EC) 325 MG TAB PO SCH ×2 (08:44→21:00)
[2017-05-05] MEDS: AMIODARONE 200 MG TAB PO SCH ×2 (08:44→21:00)
[2017-05-05] MEDS: ASPIRIN 81 MG TAB PO SCH (08:44)
[2017-05-05] MEDS: INSULIN GLARGINE [LANtus] 3 ML PEN SC SCH (08:50)
[2017-05-05 09:06] LABS: MAGNESIUM 2.2 mg/dl (1.7-2.5); PHOSPHORUS 4.1 mg/dl (2.5-4.9)
--- NOTE | 2017-05-05 09:35 | RADRPT ---
PROCEDURE: Chest Radiograph. CLINICAL INDICATION: CHF TECHNIQUE: Single frontal chest radiograph. COMPARISON: Chest radiograph 05/04/2017 FINDINGS: A left chest wall dual lead implantable pacer/defibrillator is in place. The patient is status post sternotomy. A right internal jugular venous catheter remains in place. The heart is mildly enlarg ed. There is stable mild central vascular congestion and stable interstitial prominence. There is i mproved aeration of the left lung base. No confluent or lobar infiltrate is seen. The bones are intact. IMPRESSION: 1. Improved aeration of the left lung base. 2. Otherwise stable radiographic appearance of the chest compared to 05/04/2017. RPTAT: KK .Paul Smith MD, MD Date Time Electronically viewed and signed by .Paul Smith MD, on 05/05/2017 09:34 .B/
[2017-05-05] MEDS: DABIGATRAN 150 MG CAP PO SCH ×2 (11:02→21:00)
--- NOTE | 2017-05-05 15:07 | PN ---
Date/Time of Note Date/Time of Note DATE: 05/05/17 TIME: 14:55 Assessment/Plan VTE Prophylaxis VTE Prophylaxis Intervention: ambulation, other (Pradaxa) Lines/Catheters IV Catheter Type (from Nrsg): Central Line Central line still needed: Yes (for IV access) Urinary Cath still in place: No Assessment/Plan Assessment/Plan 46-year-old male with: 1. 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 On dual antiplatelets and better hemodynamics this AM even while being diuresed. Stable SBP in the 90's Better exercise tolerance and orthopnea. On Amiodarone. Follow up further Cardio recs today 2. Uncontrolled Diabetes mellitus with A1c above hospital range On Lantus, premeal Novolog and Tradjenta, better controlled BG, also on SSI and ADA diet. DM education and requesting Nutrition consult. 3. Hypotension. Currently, BP stable with SBP in the 90's On diuresis, fluid restriction, 4. Transaminitis, significant, ? shock liver with recent hypotensive episode, hep panel negative. Improving LFTs and off statins for now. 5. Hyperlipidemia. Needs better control, given significant transaminitis, off Lipitor. 6. Paroxysmal atrial fibrillation and also episode of A flutter this AM, converted spontaneously. On Amiodarone, continuing Pradaxa. K and Mag wnl 7. Ischemic cardiomyopathy with ejection fraction of 35%. On Lasix now switched to po for diuresis and well tolerated so far. Good UOP Monitor electrolytes 8. Hypokalemia. Resolved. Replete prn and also repleting Mag. 9. Hyponatremia, improving with diuresis. Continue fluid restriction and diuresis as tolerated. Prophylaxis: Sequential compression devices to lower extremities for deep vein thrombosis prophylaxis. Pepcid for gastrointestinal prophylaxis. DISPOSITION: Follow up Cardiology recs today, likely discharge home in 24 to 48 hrs Subjective 24 Hr Interval Summary Free Text/Dictation Patient feels better then yesterday Now on po Lasix today CXR with improved edema Exam/Review of Systems Vital Signs Vitals Vital Signs Date Time Temp Pulse Resp B/P Pulse Ox O2 Delivery O2 Flow Rate FiO2 05/05/17 12:02 86 05/05/17 11:59 97.8 19 95/68 98 05/04/17 18:00 Room Air 05/01/17 20:51 21 05/01/17 07:00 2.0 Intake and Output 05/04/17 05/04/17 05/05/17 15:00 23:00 07:00 Intake Total 650 ml 450 ml Output Total 1100 ml Balance -450 ml 450 ml Exam Constitutional: alert, oriented, well developed Respiratory: diminished breath sounds (bases but better ), normal air movement Cardiovascular: nl pulses, regular rate and rhythm Gastrointestinal: non-tender, soft Musculoskeletal: nl extremities to inspection Extremities: normal pulses, other (+1 edema ) 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, nl mental status, nl speech, nl strength Results Result Diagram: 05/05/1718 05/05/17 0718 Results 24 hrs Laboratory Tests Test 05/04/17 17:25 05/04/17 22:05 05/05/17 07:18 05/05/17 08:40 Bedside Glucose 111 137 136 White Blood Count 9.9 # Red Blood Count 4.51 L Hemoglobin 12.3 L Hematocrit 37.5 L Mean Corpuscular Volume 83.1 Mean Corpuscular Hemoglobin 27.3 L Mean Corpuscular Hemoglobin Concent 32.8 Red Cell Distribution Width 14.9 H Platelet Count 382 Mean Platelet Volume 10.0 Neutrophils % 78.3 H Lymphocytes % 12.3 L Monocytes % 7.9 Eosinophils % 0.3 Basophils % 0.6 Nucleated Red Blood Cells % 0.2 H Neutrophils # 7.8 H Lymphocytes # 1.2 Monocytes # 0.8 Eosinophils # 0.0 Basophils # 0.1 Nucleated Red Blood Cells # 0.0 Sodium Level 131 L Potassium Level 4.8 Chloride Level 93 L Carbon Dioxide Level 29 Anion Gap 14 Blood Urea Nitrogen 20 Creatinine 1.04 Glucose Level 141 Calcium Level 9.1 Phosphorus Level 4.1 Magnesium Level 2.2 Total Bilirubin 0.9 Direct Bilirubin 0.00 Indirect Bilirubin 0.9 Aspartate Amino Transf (AST/SGOT) 661 H Alanine Aminotransferase (ALT/SGPT) 511 H Alkaline Phosphatase 376 H Total Protein 7.6 Albumin 4.2 Globulin 3.40 H Albumin/Globulin Ratio 1.23 Test 05/05/17 14:21 Bedside Glucose 173 Medications Medications Current Medications Aspirin (Aspirin) 81 mg DAILY PO Last administered on 05/05/17 08:44; Admin Dose 81 MG; Start 04/28/17 at 09:00 Ferrous Sulfate (Ferrous Sulfate (Ec)) 325 mg BID PO Last administered on 08:44; Admin Dose 325 MG; Start 04/27/17 at 21:00 Ondansetron HCl (Zofran Inj) 4 mg Q6H PRN IV NAUSEA AND/OR VOMITING; Start at 17:00 Nitroglycerin (Nitroglycerin (Sl Tab) 0.4 Mg) 1 tab Q5M PRN SL CHEST PAIN; Start 04/27/17 at 17:00 Acetaminophen (Tylenol Tab) 650 mg Q6H PRN PO PAIN LEVEL 1-3 OR FEVER; Start at 17:00 Morphine Sulfate (morphine) 2 mg Q4H PRN IV PAIN LEVEL 7-10 Last administered on 04/27/17 17:15; Admin Dose 2 MG; Start 04/27/17 at 17:00 Docusate Sodium (Colace) 100 mg Q12H PRN PO CONSTIPATION; Start 04/27/17 at 17: 00 Magnesium Hydroxide (Milk Of Mag) 30 ml DAILY PRN PO CONSTIPATION; Start at 17:00 Bisacodyl (Dulcolax Supp) 10 mg DAILY PRN [place] CONSTIPATION; Start 04/27/17 at 17 :00 Famotidine (Pepcid) 20 mg Q12 PO Last administered on 05/05/17 08:44; Admin Dose 20 MG; Start 04/27/17 at 21:00 Clopidogrel Bisulfate (plaVIX) 75 mg DAILY PO Last administered on 05/05/17 08 :43; Admin Dose 75 MG; Start 04/28/17 at 09:00 Miscellaneous Information 1 ea NOTE XX ; Start 04/27/17 at 23:45 Glucose (Glutose) 15 gm Q15M PRN PO DECREASED GLUCOSE; Start 04/27/17 at 23:45 Glucose (Glutose) 22.5 gm Q15M PRN PO DECREASED GLUCOSE; Start 04/27/17 at 23: 45 Dextrose (D50w Syringe) 25 ml Q15M PRN IV DECREASED GLUCOSE; Start 04/27/17 at 23:45 Dextrose (D50w Syringe) 50 ml Q15M PRN IV DECREASED GLUCOSE; Start 04/27/17 at 23:45 Glucagon (Glucagen) 1 mg Q15M PRN IM DECREASED GLUCOSE; Start 04/27/17 at 23:45 Glucose (Glutose) 15 gm Q15M PRN BUCCAL DECREASED GLUCOSE; Start 04/27/17 at 23 :45 Diagnostic Test (Pha) (Accu-Chek) 1 ea 02 XX Last administered on 05/04/17 17: 27; Admin Dose 1 EA; Start 04/29/17 at 02:00 Insulin Glargine (Lantus) 18 unit DAILY@08 SC Last administered on 05/05/17 08 :50; Admin Dose 18 UNIT; Start 04/29/17 at 08:00 Dabigatran (PRADaxa) 150 mg BID PO Last administered on 05/05/17 11:02; Admin Dose 150 MG; Start 04/28/17 at 21:00 Linagliptin (Tradjenta) 5 mg DAILY PO Last administered on 05/05/17 08:44; Admin Dose 5 MG; Start 04/29/17 at 10:00 Amiodarone HCl (Cordarone) 400 mg BID PO Last administered on 05/05/17 08:44; Admin Dose 400 MG; Start 05/02/17 at 16:13 Procedures Procedures PROCEDURE: Chest Radiograph. CLINICAL INDICATION: CHF TECHNIQUE: Single frontal chest radiograph. COMPARISON: Chest radiograph 05/04/2017 FINDINGS: A left chest wall dual lead implantable pacer/defibrillator is in place. The patient is status post sternotomy. A right internal jugular venous catheter remains in place. The heart is mildly enlarged. There is stable mild central vascular congestion and stable interstitial prominence. There is improved aeration of the left lung base. No confluent or lobar infiltrate is seen. The bones are intact. IMPRESSION: 1. Improved aeration of the left lung base. 2. Otherwise stable radiographic appearance of the chest compared to 2016. RPTAT: KK .Paul Smith MD, Date Time Electronically viewed and signed by .Paul Smith MD, on 2016 09:34 SILAS PRO May 05, 2017 15:06
--- NOTE | 2017-05-05 15:17 | PN ---
Date/Time of Note Date/Time of Note DATE: 05/05/17 TIME: 15:13 Assessment/Plan VTE Prophylaxis VTE Prophylaxis Intervention: SCD's Lines/Catheters IV Catheter Type (from Nrs): Central Line Central line still needed: No Urinary Cath still in place: No Reason Cath still needed: urinary retention Assessment/Plan Assessment/Plan Non-ST elevation [place] status post intervention with balloon angioplasty and stenting to left subclavian proximal to BARRERA takeoff Coronary artery disease with history of CABG Ischemic cardiomyopathy with ejection fraction 25% and history of ICD Diabetes, uncontrolled Atrial fibrillation/flutter, paroxysmal, on anticoagulation 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 -Continue cv meds -on AC for afib/flutter -decrease amio to 200mg dialy and stop asa when discharged -d/c planning tomorrow Subjective 24 Hr Interval Summary Free Text/Dictation The patient with some imbalance and minimal ambulation Exam/Review of Systems Vital Signs Vitals Vital Signs Date Time Temp Pulse Resp B/P Pulse Ox O2 Delivery O2 Flow Rate FiO2 05/05/17 12:02 86 05/05/17 11:59 97.8 19 95/68 98 05/04/17 18:00 Room Air 05/01/17 20:51 21 05/01/17 07:00 2.0 Intake and Output 05/04/17 05/04/17 05/05/17 15:00 23:00 07:00 Intake Total 650 ml 450 ml Output Total 1100 ml Balance -450 ml 450 ml Results Result Diagram: 05/05/17 0718 05/05/17 0718 Results 24 hrs Laboratory Tests Test 05/04/17 17:25 05/04/17 22:05 05/05/17 07:18 05/05/17 08:40 Bedside Glucose 111 137 136 White Blood Count 9.9 # Red Blood Count 4.51 L Hemoglobin 12.3 L Hematocrit 37.5 L Mean Corpuscular Volume 83.1 Mean Corpuscular Hemoglobin 27.3 L Mean Corpuscular Hemoglobin Concent 32.8 Red Cell Distribution Width 14.9 H Platelet Count 382 Mean Platelet Volume 10.0 Neutrophils % 78.3 H Lymphocytes % 12.3 L Monocytes % 7.9 Eosinophils % 0.3 Basophils % 0.6 Nucleated Red Blood Cells % 0.2 H Neutrophils # 7.8 H Lymphocytes # 1.2 Monocytes # 0.8 Eosinophils # 0.0 Basophils # 0.1 Nucleated Red Blood Cells # 0.0 Sodium Level 131 L Potassium Level 4.8 Chloride Level 93 L Carbon Dioxide Level 29 Anion Gap 14 Blood Urea Nitrogen 20 Creatinine 1.04 Glucose Level 141 Calcium Level 9.1 Phosphorus Level 4.1 Magnesium Level 2.2 Total Bilirubin 0.9 Direct Bilirubin 0.00 Indirect Bilirubin 0.9 Aspartate Amino Transf (AST/SGOT) 661 H Alanine Aminotransferase (ALT/SGPT) 511 H Alkaline Phosphatase 376 H Total Protein 7.6 Albumin 4.2 Globulin 3.40 H Albumin/Globulin Ratio 1.23 Test 05/05/17 14:21 Bedside Glucose 173 Medications Medications Current Medications Aspirin (Aspirin) 81 mg DAILY PO Last administered on 05/05/17 08:44; Admin Dose 81 MG; Start 04/28/17 at 09:00 Ferrous Sulfate (Ferrous Sulfate (Ec)) 325 mg BID PO Last administered on 08:44; Admin Dose 325 MG; Start 04/27/17 at 21:00 Ondansetron HCl (Zofran Inj) 4 mg Q6H PRN IV NAUSEA AND/OR VOMITING; Start at 17:00 Nitroglycerin (Nitroglycerin (Sl Tab) 0.4 Mg) 1 tab Q5M PRN SL CHEST PAIN; Start 04/27/17 at 17:00 Acetaminophen (Tylenol Tab) 650 mg Q6H PRN PO PAIN LEVEL 1-3 OR FEVER; Start at 17:00 Morphine Sulfate (morphine) 2 mg Q4H PRN IV PAIN LEVEL 7-10 Last administered on 04/27/17 17:15; Admin Dose 2 MG; Start 04/27/17 at 17:00 Docusate Sodium (Colace) 100 mg Q12H PRN PO CONSTIPATION; Start 04/27/17 at 17: 00 Magnesium Hydroxide (Milk Of Mag) 30 ml DAILY PRN PO CONSTIPATION; Start at 17:00 Bisacodyl (Dulcolax Supp) 10 mg DAILY PRN [place] CONSTIPATION; Start 04/27/17 at 17 :00 Famotidine (Pepcid) 20 mg Q12 PO Last administered on 05/05/17 08:44; Admin Dose 20 MG; Start 04/27/17 at 21:00 Clopidogrel Bisulfate (plaVIX) 75 mg DAILY PO Last administered on 05/05/17 08 :43; Admin Dose 75 MG; Start 04/28/17 at 09:00 Miscellaneous Information 1 ea NOTE XX ; Start 04/27/17 at 23:45 Glucose (Glutose) 15 gm Q15M PRN PO DECREASED GLUCOSE; Start 04/27/17 at 23:45 Glucose (Glutose) 22.5 gm Q15M PRN PO DECREASED GLUCOSE; Start 04/27/17 at 23: 45 Dextrose (D50w Syringe) 25 ml Q15M PRN IV DECREASED GLUCOSE; Start 04/27/17 at 23:45 Dextrose (D50w Syringe) 50 ml Q15M PRN IV DECREASED GLUCOSE; Start 04/27/17 at 23:45 Glucagon (Glucagen) 1 mg Q15M PRN IM DECREASED GLUCOSE; Start 04/27/17 at 23:45 Glucose (Glutose) 15 gm Q15M PRN BUCCAL DECREASED GLUCOSE; Start 04/27/17 at 23 :45 Diagnostic Test (Pha) (Accu-Chek) 1 ea 02 XX Last administered on 05/04/17 17: 27; Admin Dose 1 EA; Start 04/29/17 at 02:00 Insulin Glargine (Lantus) 18 unit DAILY@08 SC Last administered on 05/05/17 08 :50; Admin Dose 18 UNIT; Start 04/29/17 at 08:00 Dabigatran (PRADaxa) 150 mg BID PO Last administered on 05/05/17 11:02; Admin Dose 150 MG; Start 04/28/17 at 21:00 Linagliptin (Tradjenta) 5 mg DAILY PO Last administered on 05/05/17 08:44; Admin Dose 5 MG; Start 04/29/17 at 10:00 Amiodarone HCl (Cordarone) 400 mg BID PO Last administered on 05/05/17 08:44; Admin Dose 400 MG; Start 05/02/17 at 16:13 TAYA MATAMOROS MD May 05, 2017 15:17
[2017-05-06] VITALS (11 sets, daily range): BP systolic 94–109; BP diastolic 62–70; PULSE 65–94; RESP 18–19
[2017-05-06] MEDS: ACCU-CHEK XX SCH (02:00)
[2017-05-06] MEDS: FUROSEMIDE 20 MG TAB PO SCH ×3 (06:00→17:16)
[2017-05-06] MEDS: INSULIN ASPART [NOVOLOG] 3 ML PEN SC SCH ×7 (08:00→21:00)
[2017-05-06 08:01] LABS: ALBUMIN 3.8 g/dl (3.3-4.9); ALBUMIN/GLOBULIN RATIO 1.11; BILIRUBIN,INDIRECT 1.1 mg/dl (0-1.1); BILIRUBIN,TOTAL 1.1 mg/dl (0.2-1.3); CALCIUM 9.1 mg/dl (8.4-10.2); CREATININE 0.87 mg/dl (0.61-1.24); POTASSIUM 3.4 mmol/L (3.5-5.1); TOTAL PROTEIN 7.2 g/dl (6.1-8.1)
[2017-05-06 08:09] LABS: MAGNESIUM 2.1 mg/dl (1.7-2.5); PHOSPHORUS 4.1 mg/dl (2.5-4.9)
[2017-05-06] MEDS: DABIGATRAN 150 MG CAP PO SCH ×2 (08:33→21:00)
[2017-05-06] MEDS: ASPIRIN 81 MG TAB PO SCH (08:34)
[2017-05-06] MEDS: FERROUS SULFATE (EC) 325 MG TAB PO SCH ×2 (08:34→21:00)
[2017-05-06] MEDS: LINAGLIPTIN 5 MG TABLET PO SCH (08:34)
[2017-05-06] MEDS: FAMOTIDINE 20 MG TAB PO SCH ×2 (08:34→21:00)
[2017-05-06] MEDS: CLOPIDOGREL 75 MG TAB PO SCH (08:34)
[2017-05-06] MEDS: INSULIN GLARGINE [LANtus] 3 ML PEN SC SCH (08:36)
[2017-05-06] MEDS: AMIODARONE 200 MG TAB PO SCH ×2 (08:37→21:22)
[2017-05-06] MEDS ORDERED: POTASSIUM CHLORIDE (SR) 20 MEQ TAB PO STA (12:13)
[2017-05-06] MEDS ORDERED: SPIRONOLACTONE 25 MG TAB NGT SCH (12:30)
[2017-05-06] MEDS: SPIRONOLACTONE 25 MG TAB PO SCH ×2 (12:41→17:16)
--- NOTE | 2017-05-06 14:54 | PN ---
Date/Time of Note Date/Time of Note DATE: 05/06/17 TIME: 14:27 Assessment/Plan VTE Prophylaxis VTE Prophylaxis Intervention: other (on Pradaxa ) Lines/Catheters IV Catheter Type (from Nrsg): Central Line Central line still needed: Yes (for IV access ) Urinary Cath still in place: No Assessment/Plan Assessment/Plan 46-year-old male with: 1. 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 On dual antiplatelets and better hemodynamics this AM even while being diuresed , but patient reports less UOP with po Lasix, so Aldactone resumed at 25 mg po bid. Stable SBP in the 90's Better exercise tolerance and less orthopnea. On Amiodarone. Follow up further Cardio recs today 2. Uncontrolled Diabetes mellitus with A1c above hospital range On Lantus, premeal Novolog and Tradjenta, better controlled BG, also on SSI and ADA diet. DM education and requesting Nutrition consult. 3. Hypotension. Currently, BP stable with SBP in the 90's which has been patient's baseline On diuresis, fluid restriction, 4. Transaminitis, significant, ? shock liver with recent hypotensive episode, hep panel negative. Slowly Improving LFTs and off statins for now. 5. Hyperlipidemia. Needs better control, given significant transaminitis, off Lipitor. 6. Paroxysmal atrial fibrillation/ A flutter. On Amiodarone, continuing Pradaxa. K repleted this AM. 7. Ischemic cardiomyopathy with ejection fraction of 35%. On Lasix now switched to po for diuresis and well tolerated so far, but less UOP so Aldactone added back at 25 mg po bid. Next Ok to add metolazone 2.5 mg po once/ day prn if still not diuresing enough. Monitor electrolytes 8. Hypokalemia. Replete prn and also repleting Mag prn. 9. Hyponatremia, improving with diuresis. Continue fluid restriction and diuresis as tolerated. Prophylaxis: Sequential compression devices to lower extremities for deep vein thrombosis prophylaxis. Pepcid for gastrointestinal prophylaxis. DISPOSITION: Follow up Cardiology recs today, likely discharge home in 24 to 48 hrs Subjective 24 Hr Interval Summary Free Text/Dictation Patient doing OK, SBP holding in 90's with diuresis Still needs optimal diuresis with po meds, Lasix changed to po yesterday and patient reporting less UOP and concerns, Aldactone added and if needed will also add back metolazone Exam/Review of Systems Vital Signs Vitals Vital Signs Date Time Temp Pulse Resp B/P Pulse Ox O2 Delivery O2 Flow Rate FiO2 05/06/17 12:13 83 05/06/17 11:39 98.6 19 96/65 94 05/04/17 18:00 Room Air Intake and Output 05/05/17 05/05/17 05/06/17 15:00 23:00 07:00 Intake Total 360 ml 700 ml Output Total 225 ml 400 ml Balance 135 ml 300 ml Exam Constitutional: alert, oriented, well developed Respiratory: diminished breath sounds (bases b/l ), normal air movement Cardiovascular: nl pulses, regular rate and rhythm Gastrointestinal: non-tender, soft Musculoskeletal: nl extremities to inspection Extremities: edema (+1 to 2 edema still ), normal pulses 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, nl mental status, nl speech, nl strength Results Result Diagram: 05/05/17 0718 05/06/17 0625 Results 24 hrs Laboratory Tests Test 05/05/17 17:45 05/05/17 20:46 05/06/17 06:25 05/06/17 07:41 Bedside Glucose 113 118 122 Sodium Level 133 L Potassium Level 3.4 L Chloride Level 96 L Carbon Dioxide Level 28 Anion Gap 12 Blood Urea Nitrogen 18 Creatinine 0.87 Glucose Level 122 Calcium Level 9.1 Phosphorus Level 4.1 Magnesium Level 2.1 Total Bilirubin 1.1 Direct Bilirubin 0.00 Indirect Bilirubin 1.1 Aspartate Amino Transf (AST/SGOT) 622 H Alanine Aminotransferase (ALT/SGPT) 520 H Alkaline Phosphatase 348 H Total Protein 7.2 Albumin 3.8 Globulin 3.40 H Albumin/Globulin Ratio 1.11 Test 05/06/17 11:58 Bedside Glucose 215 Medications Medications Current Medications Aspirin (Aspirin) 81 mg DAILY PO Last administered on 05/06/17 08:34; Admin Dose 81 MG; Start 04/28/17 at 09:00 Ferrous Sulfate (Ferrous Sulfate (Ec)) 325 mg BID PO Last administered on 08:34; Admin Dose 325 MG; Start 04/27/17 at 21:00 Ondansetron HCl (Zofran Inj) 4 mg Q6H PRN IV NAUSEA AND/OR VOMITING; Start at 17:00 Nitroglycerin (Nitroglycerin (Sl Tab) 0.4 Mg) 1 tab Q5M PRN SL CHEST PAIN; Start 04/27/17 at 17:00 Acetaminophen (Tylenol Tab) 650 mg Q6H PRN PO PAIN LEVEL 1-3 OR FEVER; Start at 17:00 Morphine Sulfate (morphine) 2 mg Q4H PRN IV PAIN LEVEL 7-10 Last administered on 04/27/17 17:15; Admin Dose 2 MG; Start 04/27/17 at 17:00 Docusate Sodium (Colace) 100 mg Q12H PRN PO CONSTIPATION; Start 04/27/17 at 17: 00 Magnesium Hydroxide (Milk Of Mag) 30 ml DAILY PRN PO CONSTIPATION; Start at 17:00 Bisacodyl (Dulcolax Supp) 10 mg DAILY PRN [place] CONSTIPATION; Start 04/27/17 at 17 :00 Famotidine (Pepcid) 20 mg Q12 PO Last administered on 05/06/17 08:34; Admin Dose 20 MG; Start 04/27/17 at 21:00 Clopidogrel Bisulfate (plaVIX) 75 mg DAILY PO Last administered on 05/06/17 08 :34; Admin Dose 75 MG; Start 04/28/17 at 09:00 Miscellaneous Information 1 ea NOTE XX ; Start 04/27/17 at 23:45 Glucose (Glutose) 15 gm Q15M PRN PO DECREASED GLUCOSE; Start 04/27/17 at 23:45 Glucose (Glutose) 22.5 gm Q15M PRN PO DECREASED GLUCOSE; Start 04/27/17 at 23: 45 Dextrose (D50w Syringe) 25 ml Q15M PRN IV DECREASED GLUCOSE; Start 04/27/17 at 23:45 Dextrose (D50w Syringe) 50 ml Q15M PRN IV DECREASED GLUCOSE; Start 04/27/17 at 23:45 Glucagon (Glucagen) 1 mg Q15M PRN IM DECREASED GLUCOSE; Start 04/27/17 at 23:45 Glucose (Glutose) 15 gm Q15M PRN BUCCAL DECREASED GLUCOSE; Start 04/27/17 at 23 :45 Diagnostic Test (Pha) (Accu-Chek) 1 ea 02 XX Last administered on 05/04/17 17: 27; Admin Dose 1 EA; Start 04/29/17 at 02:00 Insulin Glargine (Lantus) 18 unit DAILY@08 SC Last administered on 05/06/17 08 :36; Admin Dose 18 UNIT; Start 04/29/17 at 08:00 Dabigatran (PRADaxa) 150 mg BID PO Last administered on 05/06/17 08:33; Admin Dose 150 MG; Start 04/28/17 at 21:00 Linagliptin (Tradjenta) 5 mg DAILY PO Last administered on 05/06/17 08:34; Admin Dose 5 MG; Start 04/29/17 at 10:00 Amiodarone HCl (Cordarone) 400 mg BID PO Last administered on 05/06/17 08:37; Admin Dose 400 MG; Start 05/02/17 at 16:13 SILAS PRO May 06, 2017 14:54
--- NOTE | 2017-05-06 17:44 | PN ---
Date/Time of Note Date/Time of Note DATE: 05/06/17 TIME: 17:42 Assessment/Plan VTE Prophylaxis VTE Prophylaxis Intervention: SCD's Lines/Catheters IV Catheter Type (from Nrsg): Central Line Central line still needed: No Urinary Cath still in place: No Reason Cath still needed: urinary retention Assessment/Plan Assessment/Plan Non-ST elevation [place] status post intervention with balloon angioplasty and stenting to left subclavian proximal to BARRERA takeoff Coronary artery disease with history of CABG Ischemic cardiomyopathy with ejection fraction 25% and history of ICD Diabetes, uncontrolled Atrial fibrillation/flutter, paroxysmal, on anticoagulation 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 -Continue cv meds -on AC for afib/flutter -decrease amio to 200mg dialy and stop asa when discharged -d/c planning Subjective 24 Hr Interval Summary Free Text/Dictation The patient better and stable Exam/Review of Systems Vital Signs Vitals Vital Signs Date Time Temp Pulse Resp B/P Pulse Ox O2 Delivery O2 Flow Rate FiO2 05/06/17 16:45 84 05/06/17 15:56 98.1 19 94/64 98 05/04/17 18:00 Room Air Intake and Output 05/05/17 05/05/17 05/06/17 15:00 23:00 07:00 Intake Total 360 ml 700 ml Output Total 225 ml 400 ml Balance 135 ml 300 ml Results Result Diagram: 05/05/17 0718 05/06/17 0625 Results 24 hrs Laboratory Tests Test 05/05/17 17:45 05/05/17 20:46 05/06/17 06:25 05/06/17 07:41 Bedside Glucose 113 118 122 Sodium Level 133 L Potassium Level 3.4 L Chloride Level 96 L Carbon Dioxide Level 28 Anion Gap 12 Blood Urea Nitrogen 18 Creatinine 0.87 Glucose Level 122 Calcium Level 9.1 Phosphorus Level 4.1 Magnesium Level 2.1 Total Bilirubin 1.1 Direct Bilirubin 0.00 Indirect Bilirubin 1.1 Aspartate Amino Transf (AST/SGOT) 622 H Alanine Aminotransferase (ALT/SGPT) 520 H Alkaline Phosphatase 348 H Total Protein 7.2 Albumin 3.8 Globulin 3.40 H Albumin/Globulin Ratio 1.11 Test 05/06/17 11:58 05/06/17 16:57 Bedside Glucose 215 97 Medications Medications Current Medications Aspirin (Aspirin) 81 mg DAILY PO Last administered on 05/06/17 08:34; Admin Dose 81 MG; Start 04/28/17 at 09:00 Ferrous Sulfate (Ferrous Sulfate (Ec)) 325 mg BID PO Last administered on 08:34; Admin Dose 325 MG; Start 04/27/17 at 21:00 Ondansetron HCl (Zofran Inj) 4 mg Q6H PRN IV NAUSEA AND/OR VOMITING; Start at 17:00 Nitroglycerin (Nitroglycerin (Sl Tab) 0.4 Mg) 1 tab Q5M PRN SL CHEST PAIN; Start 04/27/17 at 17:00 Acetaminophen (Tylenol Tab) 650 mg Q6H PRN PO PAIN LEVEL 1-3 OR FEVER; Start at 17:00 Morphine Sulfate (morphine) 2 mg Q4H PRN IV PAIN LEVEL 7-10 Last administered on 04/27/17 17:15; Admin Dose 2 MG; Start 04/27/17 at 17:00 Docusate Sodium (Colace) 100 mg Q12H PRN PO CONSTIPATION; Start 04/27/17 at 17: 00 Magnesium Hydroxide (Milk Of Mag) 30 ml DAILY PRN PO CONSTIPATION; Start at 17:00 Bisacodyl (Dulcolax Supp) 10 mg DAILY PRN [place] CONSTIPATION; Start 04/27/17 at 17 :00 Famotidine (Pepcid) 20 mg Q12 PO Last administered on 05/06/17 08:34; Admin Dose 20 MG; Start 04/27/17 at 21:00 Clopidogrel Bisulfate (plaVIX) 75 mg DAILY PO Last administered on 05/06/17 08 :34; Admin Dose 75 MG; Start 04/28/17 at 09:00 Miscellaneous Information 1 ea NOTE XX ; Start 04/27/17 at 23:45 Glucose (Glutose) 15 gm Q15M PRN PO DECREASED GLUCOSE; Start 04/27/17 at 23:45 Glucose (Glutose) 22.5 gm Q15M PRN PO DECREASED GLUCOSE; Start 04/27/17 at 23: 45 Dextrose (D50w Syringe) 25 ml Q15M PRN IV DECREASED GLUCOSE; Start 04/27/17 at 23:45 Dextrose (D50w Syringe) 50 ml Q15M PRN IV DECREASED GLUCOSE; Start 04/27/17 at 23:45 Glucagon (Glucagen) 1 mg Q15M PRN IM DECREASED GLUCOSE; Start 04/27/17 at 23:45 Glucose (Glutose) 15 gm Q15M PRN BUCCAL DECREASED GLUCOSE; Start 04/27/17 at 23 :45 Diagnostic Test (Pha) (Accu-Chek) 1 ea 02 XX Last administered on 05/04/17 17: 27; Admin Dose 1 EA; Start 04/29/17 at 02:00 Insulin Glargine (Lantus) 18 unit DAILY@08 SC Last administered on 05/06/17 08 :36; Admin Dose 18 UNIT; Start 04/29/17 at 08:00 Dabigatran (PRADaxa) 150 mg BID PO Last administered on 05/06/17 08:33; Admin Dose 150 MG; Start 04/28/17 at 21:00 Linagliptin (Tradjenta) 5 mg DAILY PO Last administered on 05/06/17 08:34; Admin Dose 5 MG; Start 04/29/17 at 10:00 Amiodarone HCl (Cordarone) 400 mg BID PO Last administered on 05/06/17 08:37; Admin Dose 400 MG; Start 05/02/17 at 16:13 TAYA MATAMOROS MD May 06, 2017 17:44
[2017-05-07] VITALS (11 sets, daily range): BP systolic 93–103; BP diastolic 58–73; PULSE 79–88; RESP 16–19
[2017-05-07] MEDS: ACCU-CHEK XX SCH (02:00)
[2017-05-07] MEDS: FUROSEMIDE 20 MG TAB PO SCH ×2 (06:00→17:47)
[2017-05-07] MEDS: SPIRONOLACTONE 25 MG TAB PO SCH ×2 (06:00→17:46)
[2017-05-07 07:56] LABS: ADD SCAN DIFF NO
[2017-05-07] MEDS: INSULIN ASPART [NOVOLOG] 3 ML PEN SC SCH ×7 (08:00→21:00)
[2017-05-07 08:05] LABS: BASOPHILS % 0.4 % (0.0-2.0); EOSINOPHILS % 0.1 % (0.0-7.0); HEMATOCRIT 39.8 % (42.0-52.0); HEMOGLOBIN 13.1 g/dl (14.0-18.0); LYMPHOCYTES # 1.1 10^3/ul (0.8-2.9); LYMPHOCYTES % 13.2 % (15.0-51.0); MEAN CORPUSCULAR HEMOGLOBIN 27.4 pg (29.0-33.0); MEAN CORPUSCULAR HGB CONC 32.9 g/dl (32.0-37.0); MEAN CORPUSCULAR VOLUME 83.3 fl (82.0-101.0); MEAN PLATELET VOLUME 10.1 fl (7.4-10.4); MONOCYTE # 0.8 10^3/ul (0.3-0.9); MONOCYTES % 9.8 % (0.0-11.0); NUCLEATED RED BLOOD CELLS # 0.1 10^3/ul (0.0-0.0); NUCLEATED RED BLOOD CELLS% 0.8 /100WBC (0.0-0.0); PLATELET COUNT 320 10^3/UL (140-415); RED BLOOD COUNT 4.78 10^6/ul (4.70-6.10); RED CELL DISTRIBUTION WIDTH 15.2 % (11.5-14.5); WHITE BLOOD COUNT 7.9 10^3/ul (4.8-10.8)
[2017-05-07] MEDS: CLOPIDOGREL 75 MG TAB PO SCH (08:13)
[2017-05-07] MEDS: FAMOTIDINE 20 MG TAB PO SCH ×2 (08:13→21:28)
[2017-05-07] MEDS: ASPIRIN 81 MG TAB PO SCH (08:13)
[2017-05-07] MEDS: LINAGLIPTIN 5 MG TABLET PO SCH (08:13)
[2017-05-07] MEDS: FERROUS SULFATE (EC) 325 MG TAB PO SCH ×2 (08:13→21:28)
[2017-05-07] MEDS: AMIODARONE 200 MG TAB PO SCH ×2 (08:14→21:27)
[2017-05-07] MEDS: DABIGATRAN 150 MG CAP PO SCH ×2 (08:14→21:27)
[2017-05-07 08:24] LABS: ALBUMIN/GLOBULIN RATIO 1.21; BILIRUBIN,DIRECT 0.1 mg/dl (0.00-0.20); BILIRUBIN,INDIRECT 1.4 mg/dl (0-1.1); BILIRUBIN,TOTAL 1.5 mg/dl (0.2-1.3); CALCIUM 8.8 mg/dl (8.4-10.2); CREATININE 1.01 mg/dl (0.61-1.24); POTASSIUM 4.2 mmol/L (3.5-5.1); TOTAL PROTEIN 7.3 g/dl (6.1-8.1)
[2017-05-07] MEDS: INSULIN GLARGINE [LANtus] 3 ML PEN SC SCH (08:25)
--- NOTE | 2017-05-07 11:23 | PN ---
Date/Time of Note Date/Time of Note DATE: 05/07/17 TIME: 11:11 Assessment/Plan VTE Prophylaxis VTE Prophylaxis Intervention: ambulation Lines/Catheters IV Catheter Type (from Nrs): Central Line Central line still needed: No Urinary Cath still in place: No Assessment/Plan Assessment/Plan 46-year-old male with uncontrolled DM and ischemic CM: 1. 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 On dual antiplatelets and better hemodynamics this AM even while being diuresed , but patient reports less UOP with po Lasix, so Aldactone resumed at 25 mg po bid. I also added metozalone and acetazolamide. Stable SBP in the 90's Better exercise tolerance and less orthopnea. On Amiodarone. 2. Uncontrolled Diabetes mellitus with A1c above hospital range. On Lantus, premeal Novolog and Tradjenta, better controlled BG, also on SSI and ADA diet. DM education and requesting Nutrition consult. 3. Hypotension. Currently, BP stable with SBP in the 90's which has been patient's baseline On diuresis, fluid restriction, Will continue to monitor closely. 4. Transaminitis, significant, ? shock liver with recent hypotensive episode, hep panel negative. Slowly Improving LFTs and off statins for now. 5. Hyperlipidemia. Needs better control, given significant transaminitis, off Lipitor. 6. Paroxysmal atrial fibrillation/ A flutter. On Amiodarone, continuing Pradaxa. K repleted this AM. 7. Ischemic cardiomyopathy with ejection fraction of 35%. On Lasix now switched to po for diuresis and well tolerated so far, but less UOP so Aldactone added back at 25 mg po bid. Adding metolazone 2.5 mg po bid as he is still not diuresing enough. Monitor electrolytes 8. Hypokalemia. Replete prn and also repleting Mag prn. 9. Hyponatremia, improving with diuresis. Continue fluid restriction and diuresis as tolerated. Prophylaxis: Sequential compression devices to lower extremities for deep vein thrombosis prophylaxis. Pepcid for gastrointestinal prophylaxis. DISPOSITION: Follow up Cardiology recs today, likely discharge home in 24 to 48 hrs if stable on medication regiment and not hypotensive. Subjective 24 Hr Interval Summary Free Text/Dictation Refused lasix and aldactone this AM. Stated he needed to take 4 diuretics together as he did at home. "that is what works for me" Exam/Review of Systems Vital Signs Vitals Vital Signs Date Time Temp Pulse Resp B/P Pulse Ox O2 Delivery O2 Flow Rate FiO2 05/07/17 08:02 79 05/07/17 07:36 98.3 18 93/73 97 05/04/17 18:00 Room Air Intake and Output 05/06/17 05/06/17 05/07/17 15:00 23:00 07:00 Intake Total 400 ml 700 ml Output Total 800 ml Balance 400 ml -100 ml Exam Constitutional: alert, oriented Psych: depression Head: normocephalic Eyes: nl conjunctiva ENMT: nl external ears & nose Neck: supple Respiratory: clear to auscultation Cardiovascular: regular rate and rhythm Gastrointestinal: soft Extremities: pitting pedal edema Neurological: OPTIONS ADVISOR II-XII intact Results Result Diagram: 05/07/17 0700 05/07/17 0700 Results 24 hrs Laboratory Tests Test 05/06/17 11:58 05/06/17 16:57 05/06/17 21:31 05/07/17 07:00 Bedside Glucose 215 97 123 White Blood Count 7.9 # Red Blood Count 4.78 Hemoglobin 13.1 L Hematocrit 39.8 L Mean Corpuscular Volume 83.3 Mean Corpuscular Hemoglobin 27.4 L Mean Corpuscular Hemoglobin Concent 32.9 Red Cell Distribution Width 15.2 H Platelet Count 320 Mean Platelet Volume 10.1 Neutrophils % 76.0 Lymphocytes % 13.2 L Monocytes % 9.8 Eosinophils % 0.1 Basophils % 0.4 Nucleated Red Blood Cells % 0.8 H Neutrophils # 6.0 Lymphocytes # 1.1 Monocytes # 0.8 Eosinophils # 0.0 Basophils # 0.0 Nucleated Red Blood Cells # 0.1 H Sodium Level 130 L Potassium Level 4.2 Chloride Level 95 L Carbon Dioxide Level 25 Anion Gap 14 Blood Urea Nitrogen 19 Creatinine 1.01 Glucose Level 142 Calcium Level 8.8 Phosphorus Level 4.0 Magnesium Level 2.0 Total Bilirubin 1.5 H Direct Bilirubin 0.10 Indirect Bilirubin 1.4 H Aspartate Amino Transf (AST/SGOT) 651 H Alanine Aminotransferase (ALT/SGPT) 526 H Alkaline Phosphatase 413 H Total Protein 7.3 Albumin 4.0 Globulin 3.30 H Albumin/Globulin Ratio 1.21 Test 05/07/17 07:54 Bedside Glucose 123 Medications Medications Current Medications Aspirin (Aspirin) 81 mg DAILY PO Last administered on 05/07/17 08:13; Admin Dose 81 MG; Start 04/28/17 at 09:00 Ferrous Sulfate (Ferrous Sulfate (Ec)) 325 mg BID PO Last administered on 08:13; Admin Dose 325 MG; Start 04/27/17 at 21:00 Ondansetron HCl (Zofran Inj) 4 mg Q6H PRN IV NAUSEA AND/OR VOMITING; Start at 17:00 Nitroglycerin (Nitroglycerin (Sl Tab) 0.4 Mg) 1 tab Q5M PRN SL CHEST PAIN; Start 04/27/17 at 17:00 Acetaminophen (Tylenol Tab) 650 mg Q6H PRN PO PAIN LEVEL 1-3 OR FEVER; Start at 17:00 Morphine Sulfate (morphine) 2 mg Q4H PRN IV PAIN LEVEL 7-10 Last administered on 04/27/17 17:15; Admin Dose 2 MG; Start 04/27/17 at 17:00 Docusate Sodium (Colace) 100 mg Q12H PRN PO CONSTIPATION; Start 04/27/17 at 17: 00 Magnesium Hydroxide (Milk Of Mag) 30 ml DAILY PRN PO CONSTIPATION; Start at 17:00 Bisacodyl (Dulcolax Supp) 10 mg DAILY PRN [place] CONSTIPATION; Start 04/27/17 at 17 :00 Famotidine (Pepcid) 20 mg Q12 PO Last administered on 05/07/17 08:13; Admin Dose 20 MG; Start 04/27/17 at 21:00 Clopidogrel Bisulfate (plaVIX) 75 mg DAILY PO Last administered on 05/07/17 08 :13; Admin Dose 75 MG; Start 04/28/17 at 09:00 Miscellaneous Information 1 ea NOTE XX ; Start 04/27/17 at 23:45 Glucose (Glutose) 15 gm Q15M PRN PO DECREASED GLUCOSE; Start 04/27/17 at 23:45 Glucose (Glutose) 22.5 gm Q15M PRN PO DECREASED GLUCOSE; Start 04/27/17 at 23: 45 Dextrose (D50w Syringe) 25 ml Q15M PRN IV DECREASED GLUCOSE; Start 04/27/17 at 23:45 Dextrose (D50w Syringe) 50 ml Q15M PRN IV DECREASED GLUCOSE; Start 04/27/17 at 23:45 Glucagon (Glucagen) 1 mg Q15M PRN IM DECREASED GLUCOSE; Start 04/27/17 at 23:45 Glucose (Glutose) 15 gm Q15M PRN BUCCAL DECREASED GLUCOSE; Start 04/27/17 at 23 :45 Diagnostic Test (Pha) (Accu-Chek) 1 ea 02 XX Last administered on 05/04/17 17: 27; Admin Dose 1 EA; Start 04/29/17 at 02:00 Insulin Glargine (Lantus) 18 unit DAILY@08 SC Last administered on 05/07/17 08 :25; Admin Dose 18 UNIT; Start 04/29/17 at 08:00 Dabigatran (PRADaxa) 150 mg BID PO Last administered on 05/07/17 08:14; Admin Dose 150 MG; Start 04/28/17 at 21:00 Linagliptin (Tradjenta) 5 mg DAILY PO Last administered on 05/07/17 08:13; Admin Dose 5 MG; Start 04/29/17 at 10:00 Amiodarone HCl (Cordarone) 400 mg BID PO Last administered on 05/07/17 08:14; Admin Dose 400 MG; Start 05/02/17 at 16:13 RYLIE TAFOYA MD May 07, 2017 11:22
--- NOTE | 2017-05-07 11:54 | PN ---
Date/Time of Note Date/Time of Note DATE: 05/07/17 TIME: 11:53 Assessment/Plan VTE Prophylaxis VTE Prophylaxis Intervention: SCD's Lines/Catheters IV Catheter Type (from Nrs): Central Line Central line still needed: No Urinary Cath still in place: No Assessment/Plan Assessment/Plan Non-ST elevation NH status post intervention with balloon angioplasty and stenting to left subclavian proximal to [place] takeoff Coronary artery disease with history of CABG Ischemic cardiomyopathy with ejection fraction 25% and history of ICD Diabetes, uncontrolled Atrial fibrillation/flutter, paroxysmal, on anticoagulation 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 -Continue cv meds -on AC for afib/flutter -decrease amio to 200mg dialy and stop asa when discharged -d/c planning Subjective 24 Hr Interval Summary Free Text/Dictation The patient doing well Exam/Review of Systems Vital Signs Vitals Vital Signs Date Time Temp Pulse Resp B/P Pulse Ox O2 Delivery O2 Flow Rate FiO2 05/07/17 11:37 97.9 85 18 103/70 100 05/04/17 18:00 Room Air Intake and Output 05/06/17 05/06/17 05/07/17 15:00 23:00 07:00 Intake Total 400 ml 700 ml Output Total 800 ml Balance 400 ml -100 ml Results Result Diagram: 05/07/17 0700 05/07/17 0700 Results 24 hrs Laboratory Tests Test 05/06/17 11:58 05/06/17 16:57 05/06/17 21:31 05/07/17 07:00 Bedside Glucose 215 97 123 White Blood Count 7.9 # Red Blood Count 4.78 Hemoglobin 13.1 L Hematocrit 39.8 L Mean Corpuscular Volume 83.3 Mean Corpuscular Hemoglobin 27.4 L Mean Corpuscular Hemoglobin Concent 32.9 Red Cell Distribution Width 15.2 H Platelet Count 320 Mean Platelet Volume 10.1 Neutrophils % 76.0 Lymphocytes % 13.2 L Monocytes % 9.8 Eosinophils % 0.1 Basophils % 0.4 Nucleated Red Blood Cells % 0.8 H Neutrophils # 6.0 Lymphocytes # 1.1 Monocytes # 0.8 Eosinophils # 0.0 Basophils # 0.0 Nucleated Red Blood Cells # 0.1 H Sodium Level 130 L Potassium Level 4.2 Chloride Level 95 L Carbon Dioxide Level 25 Anion Gap 14 Blood Urea Nitrogen 19 Creatinine 1.01 Glucose Level 142 Calcium Level 8.8 Phosphorus Level 4.0 Magnesium Level 2.0 Total Bilirubin 1.5 H Direct Bilirubin 0.10 Indirect Bilirubin 1.4 H Aspartate Amino Transf (AST/SGOT) 651 H Alanine Aminotransferase (ALT/SGPT) 526 H Alkaline Phosphatase 413 H Total Protein 7.3 Albumin 4.0 Globulin 3.30 H Albumin/Globulin Ratio 1.21 Test 05/07/17 07:54 05/07/17 11:33 Bedside Glucose 123 233 H Medications Medications Current Medications Aspirin (Aspirin) 81 mg DAILY PO Last administered on 05/07/17 08:13; Admin Dose 81 MG; Start 04/28/17 at 09:00 Ferrous Sulfate (Ferrous Sulfate (Ec)) 325 mg BID PO Last administered on 08:13; Admin Dose 325 MG; Start 04/27/17 at 21:00 Ondansetron HCl (Zofran Inj) 4 mg Q6H PRN IV NAUSEA AND/OR VOMITING; Start at 17:00 Nitroglycerin (Nitroglycerin (Sl Tab) 0.4 Mg) 1 tab Q5M PRN SL CHEST PAIN; Start 04/27/17 at 17:00 Acetaminophen (Tylenol Tab) 650 mg Q6H PRN PO PAIN LEVEL 1-3 OR FEVER; Start at 17:00 Morphine Sulfate (morphine) 2 mg Q4H PRN IV PAIN LEVEL 7-10 Last administered on 04/27/17 17:15; Admin Dose 2 MG; Start 04/27/17 at 17:00 Docusate Sodium (Colace) 100 mg Q12H PRN PO CONSTIPATION; Start 04/27/17 at 17: 00 Magnesium Hydroxide (Milk Of Mag) 30 ml DAILY PRN PO CONSTIPATION; Start at 17:00 Bisacodyl (Dulcolax Supp) 10 mg DAILY PRN [place] CONSTIPATION; Start 04/27/17 at 17 :00 Famotidine (Pepcid) 20 mg Q12 PO Last administered on 05/07/17 08:13; Admin Dose 20 MG; Start 04/27/17 at 21:00 Clopidogrel Bisulfate (plaVIX) 75 mg DAILY PO Last administered on 05/07/17 08 :13; Admin Dose 75 MG; Start 04/28/17 at 09:00 Miscellaneous Information 1 ea NOTE XX ; Start 04/27/17 at 23:45 Glucose (Glutose) 15 gm Q15M PRN PO DECREASED GLUCOSE; Start 04/27/17 at 23:45 Glucose (Glutose) 22.5 gm Q15M PRN PO DECREASED GLUCOSE; Start 04/27/17 at 23: 45 Dextrose (D50w Syringe) 25 ml Q15M PRN IV DECREASED GLUCOSE; Start 04/27/17 at 23:45 Dextrose (D50w Syringe) 50 ml Q15M PRN IV DECREASED GLUCOSE; Start 04/27/17 at 23:45 Glucagon (Glucagen) 1 mg Q15M PRN IM DECREASED GLUCOSE; Start 04/27/17 at 23:45 Glucose (Glutose) 15 gm Q15M PRN BUCCAL DECREASED GLUCOSE; Start 04/27/17 at 23 :45 Diagnostic Test (Pha) (Accu-Chek) 1 ea 02 XX Last administered on 05/04/17 17: 27; Admin Dose 1 EA; Start 04/29/17 at 02:00 Insulin Glargine (Lantus) 18 unit DAILY@08 SC Last administered on 05/07/17 08 :25; Admin Dose 18 UNIT; Start 04/29/17 at 08:00 Dabigatran (PRADaxa) 150 mg BID PO Last administered on 05/07/17 08:14; Admin Dose 150 MG; Start 04/28/17 at 21:00 Linagliptin (Tradjenta) 5 mg DAILY PO Last administered on 05/07/17 08:13; Admin Dose 5 MG; Start 04/29/17 at 10:00 Amiodarone HCl (Cordarone) 400 mg BID PO Last administered on 05/07/17 08:14; Admin Dose 400 MG; Start 05/02/17 at 16:13 TAYA MATAMOROS MD May 07, 2017 11:54
[2017-05-07] MEDS: ACETAZOLAMIDE 250 MG TAB PO SCH ×2 (13:15→17:47)
[2017-05-07] MEDS: METOLAZONE 2.5 MG TAB PO SCH ×2 (13:15→17:47)
[2017-05-08] VITALS (11 sets, daily range): BP systolic 93–98; BP diastolic 54–68; PULSE 75–98; RESP 16–20
[2017-05-08] MEDS: ACCU-CHEK XX SCH (02:00)
[2017-05-08] MEDS: ACETAZOLAMIDE 250 MG TAB PO SCH (06:23)
[2017-05-08] MEDS: METOLAZONE 2.5 MG TAB PO SCH (06:23)
[2017-05-08] MEDS: FUROSEMIDE 20 MG TAB PO SCH (06:23)
[2017-05-08] MEDS: SPIRONOLACTONE 25 MG TAB PO SCH (06:26)
[2017-05-08 07:31] LABS: ADD SCAN DIFF NO
[2017-05-08 07:54] LABS: BASOPHIL # 0.1 10^3/ul (0.0-0.1); BASOPHILS % 0.7 % (0.0-2.0); EOSINOPHILS # 0.1 10^3/ul (0.0-0.5); EOSINOPHILS % 0.7 % (0.0-7.0); HEMATOCRIT 37.7 % (42.0-52.0); HEMOGLOBIN 12.2 g/dl (14.0-18.0); LYMPHOCYTES % 10.7 % (15.0-51.0); MEAN CORPUSCULAR HEMOGLOBIN 26.9 pg (29.0-33.0); MEAN CORPUSCULAR HGB CONC 32.4 g/dl (32.0-37.0); MONOCYTE # 0.7 10^3/ul (0.3-0.9); MONOCYTES % 7.7 % (0.0-11.0); NEUTROPHIL # 7.3 10^3/ul (1.6-7.5); NEUTROPHILS % 79.7 % (39.0-77.0); NUCLEATED RED BLOOD CELLS% 0.3 /100WBC (0.0-0.0); PLATELET COUNT 392 10^3/UL (140-415); RED BLOOD COUNT 4.54 10^6/ul (4.70-6.10); RED CELL DISTRIBUTION WIDTH 15.3 % (11.5-14.5); WHITE BLOOD COUNT 9.2 10^3/ul (4.8-10.8)
[2017-05-08] MEDS: INSULIN ASPART [NOVOLOG] 3 ML PEN SC SCH ×7 (08:00→20:58)
[2017-05-08] MEDS: DABIGATRAN 150 MG CAP PO SCH ×2 (08:04→20:51)
[2017-05-08] MEDS: CLOPIDOGREL 75 MG TAB PO SCH (08:04)
[2017-05-08] MEDS: FAMOTIDINE 20 MG TAB PO SCH ×2 (08:04→20:51)
[2017-05-08] MEDS: LINAGLIPTIN 5 MG TABLET PO SCH (08:04)
[2017-05-08] MEDS: AMIODARONE 200 MG TAB PO SCH ×2 (08:05→20:53)
[2017-05-08] MEDS: ASPIRIN 81 MG TAB PO SCH (08:05)
[2017-05-08] MEDS: FERROUS SULFATE (EC) 325 MG TAB PO SCH ×2 (08:05→20:53)
[2017-05-08] MEDS: INSULIN GLARGINE [LANtus] 3 ML PEN SC SCH (08:09)
[2017-05-08 08:19] LABS: ALBUMIN 4.1 g/dl (3.3-4.9); ALBUMIN/GLOBULIN RATIO 1.24; CALCIUM 9.2 mg/dl (8.4-10.2); CREATININE 1.04 mg/dl (0.61-1.24); TOTAL PROTEIN 7.4 g/dl (6.1-8.1)
[2017-05-08 08:25] LABS: POTASSIUM 2.5 mmol/L (3.5-5.1)
[2017-05-08] MEDS ORDERED: POTASSIUM CHLORIDE (SR) 20 MEQ TAB PO STA ×4 (09:41→22:14)
[2017-05-08] MEDS ORDERED: POTASSIUM CHLORIDE 250 ML IVPB ONE (12:30)
[2017-05-08] MEDS ORDERED: POTASSIUM CHLORIDE (SR) 20 MEQ TAB PO ONE (13:00)
[2017-05-08] MEDS ORDERED: glipiZIDE 5 MG TAB PO SCH (14:30)
--- NOTE | 2017-05-08 14:49 | PN ---
Date/Time of Note Date/Time of Note DATE: 05/08/17 TIME: 14:43 Assessment/Plan VTE Prophylaxis VTE Prophylaxis Intervention: ambulation Lines/Catheters IV Catheter Type (from Nrsg): Central Line Central line still needed: Yes Urinary Cath still in place: No Assessment/Plan Assessment/Plan 46-year-old male with uncontrolled DM and ischemic CM: 1. 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 On dual antiplatelets and better hemodynamics this AM even while being diuresed , but patient reports less UOP with po Lasix, so Aldactone resumed at 25 mg po daily. I also added metozalone 2.5 daily and acetazolamide twice daily. Stable SBP in the 90's Better exercise tolerance and less orthopnea. On Amiodarone. 2. Uncontrolled Diabetes mellitus with A1c above hospital range. Will repeat study. On Lantus, premeal Novolog and Tradjenta, better controlled BG, also on SSI and ADA diet. DM education and requesting Nutrition consult. Will start glipizide to wean off Lantus (if possible); DM educator to visit the patient in AM. 3. Hypotension. Currently, BP stable with SBP in the 90's-100's which has been patient's baseline On diuresis, fluid restriction, Will continue to monitor closely. 4. Transaminitis, significant, ? shock liver with recent hypotensive episode, hep panel negative. Improving LFTs and off statins for now. 5. Hyperlipidemia. Needs better control, given significant transaminitis, off Lipitor secondary to increased LFTs 6. Paroxysmal atrial fibrillation/ A flutter. On Amiodarone, continuing Pradaxa. K repleted this AM. 7. Ischemic cardiomyopathy with ejection fraction of 35%. On Lasix now switched to po for diuresis and well tolerated so far, but less UOP so Aldactone added back at 25 mg po daily. Adding metolazone 2.5 mg po qd as he is still not diuresing enough. Monitor electrolytes 8. Hypokalemia. Potassium level is low to 2.7. Replete prn and also repleting Mag prn. 9. Hyponatremia, improving with diuresis. Continue fluid restriction and diuresis as tolerated. Prophylaxis: Sequential compression devices to lower extremities for deep vein thrombosis prophylaxis. Pepcid for gastrointestinal prophylaxis. DISPOSITION: Follow up Cardiology recs today, likely discharge home in 24 if stable on medication regimen and not hypokalemic. He is to follow-up with Dr. Foster and Endocrinology. He will also need a new PCP. Subjective 24 Hr Interval Summary Free Text/Dictation Feels better today. UOP was good this AM. Constitutional: no complaints Eyes: no complaints Exam/Review of Systems Vital Signs Vitals Vital Signs Date Time Temp Pulse Resp B/P Pulse Ox O2 Delivery O2 Flow Rate FiO2 05/08/17 12:33 96 05/08/17 11:43 98.6 19 94/58 99 05/04/17 18:00 Room Air Intake and Output 05/07/17 05/07/17 05/08/17 15:00 23:00 07:00 Intake Total 300 ml 400 ml Balance 300 ml 400 ml Exam Constitutional: alert, oriented, well developed Psych: no complaints Head: normocephalic Eyes: nl conjunctiva ENMT: nl external ears & nose Neck: supple Respiratory: clear to auscultation Cardiovascular: regular rate and rhythm Gastrointestinal: soft Extremities: edema (trace) Neurological: ASSOCIATE RESEARCH SCIENTIST II-XII intact Results Result Diagram: 05/08/17 0620 05/08/17 1052 Results 24 hrs Laboratory Tests Test 05/07/17 17:24 05/07/17 21:30 05/08/17 06:20 05/08/17 07:53 Bedside Glucose 104 160 121 White Blood Count 9.2 Red Blood Count 4.54 L Hemoglobin 12.2 L Hematocrit 37.7 L Mean Corpuscular Volume 83.0 Mean Corpuscular Hemoglobin 26.9 L Mean Corpuscular Hemoglobin Concent 32.4 Red Cell Distribution Width 15.3 H Platelet Count 392 # Mean Platelet Volume 10.0 Neutrophils % 79.7 H Lymphocytes % 10.7 L Monocytes % 7.7 Eosinophils % 0.7 Basophils % 0.7 Nucleated Red Blood Cells % 0.3 H Neutrophils # 7.3 Lymphocytes # 1.0 Monocytes # 0.7 Eosinophils # 0.1 Basophils # 0.1 Nucleated Red Blood Cells # 0.0 Sodium Level 131 L Potassium Level 2.5 *L Chloride Level 92 L Carbon Dioxide Level 30 Anion Gap 12 Blood Urea Nitrogen 20 Creatinine 1.04 Glucose Level 105 Calcium Level 9.2 Total Bilirubin 1.0 Direct Bilirubin 0.00 Indirect Bilirubin 1.0 Aspartate Amino Transf (AST/SGOT) 301 #H Alanine Aminotransferase (ALT/SGPT) 421 H Alkaline Phosphatase 364 H Total Protein 7.4 Albumin 4.1 Globulin 3.30 H Albumin/Globulin Ratio 1.24 Test 05/08/17 10:52 05/08/17 11:35 Potassium Level 2.7 *L Bedside Glucose 223 H Medications Medications Current Medications Aspirin (Aspirin) 81 mg DAILY PO Last administered on 05/08/17 08:05; Admin Dose 81 MG; Start 04/28/17 at 09:00 Ferrous Sulfate (Ferrous Sulfate (Ec)) 325 mg BID PO Last administered on 08:05; Admin Dose 325 MG; Start 04/27/17 at 21:00 Ondansetron HCl (Zofran Inj) 4 mg Q6H PRN IV NAUSEA AND/OR VOMITING; Start at 17:00 Nitroglycerin (Nitroglycerin (Sl Tab) 0.4 Mg) 1 tab Q5M PRN SL CHEST PAIN; Start 04/27/17 at 17:00 Acetaminophen (Tylenol Tab) 650 mg Q6H PRN PO PAIN LEVEL 1-3 OR FEVER; Start at 17:00 Morphine Sulfate (morphine) 2 mg Q4H PRN IV PAIN LEVEL 7-10 Last administered on 04/27/17 17:15; Admin Dose 2 MG; Start 04/27/17 at 17:00 Docusate Sodium (Colace) 100 mg Q12H PRN PO CONSTIPATION; Start 04/27/17 at 17: 00 Magnesium Hydroxide (Milk Of Mag) 30 ml DAILY PRN PO CONSTIPATION; Start at 17:00 Bisacodyl (Dulcolax Supp) 10 mg DAILY PRN [place] CONSTIPATION; Start 04/27/17 at 17 :00 Famotidine (Pepcid) 20 mg Q12 PO Last administered on 05/08/17 08:04; Admin Dose 20 MG; Start 04/27/17 at 21:00 Clopidogrel Bisulfate (plaVIX) 75 mg DAILY PO Last administered on 05/08/17 08 :04; Admin Dose 75 MG; Start 04/28/17 at 09:00 Miscellaneous Information 1 ea NOTE XX ; Start 04/27/17 at 23:45 Glucose (Glutose) 15 gm Q15M PRN PO DECREASED GLUCOSE; Start 04/27/17 at 23:45 Glucose (Glutose) 22.5 gm Q15M PRN PO DECREASED GLUCOSE; Start 04/27/17 at 23: 45 Dextrose (D50w Syringe) 25 ml Q15M PRN IV DECREASED GLUCOSE; Start 04/27/17 at 23:45 Dextrose (D50w Syringe) 50 ml Q15M PRN IV DECREASED GLUCOSE; Start 04/27/17 at 23:45 Glucagon (Glucagen) 1 mg Q15M PRN IM DECREASED GLUCOSE; Start 04/27/17 at 23:45 Glucose (Glutose) 15 gm Q15M PRN BUCCAL DECREASED GLUCOSE; Start 04/27/17 at 23 :45 Diagnostic Test (Pha) (Accu-Chek) 1 ea 02 XX Last administered on 05/04/17 17: 27; Admin Dose 1 EA; Start 04/29/17 at 02:00 Insulin Glargine (Lantus) 18 unit DAILY@08 SC Last administered on 05/08/17 08 :09; Admin Dose 18 UNIT; Start 04/29/17 at 08:00 Dabigatran (PRADaxa) 150 mg BID PO Last administered on 05/08/17 08:04; Admin Dose 150 MG; Start 04/28/17 at 21:00 Linagliptin (Tradjenta) 5 mg DAILY PO Last administered on 05/08/17 08:04; Admin Dose 5 MG; Start 04/29/17 at 10:00 Amiodarone HCl 400 mg 400 mg BID PO Last administered on 05/08/17 08:05; Admin Dose 400 MG; Start 05/02/17 at 16:13 Potassium Chloride (KCl 40 MEQ/250 ML NS) 250 ml @ 62.5 mls/hr ONCE ONCE IVPB Last administered on 05/08/17 13:38; Admin Dose 62.5 MLS/HR; Start 05/08/17 at 12:30; Stop 05/08/17 at 16:29 Glipizide (Glucotrol) 5 mg BID PO ; Start 05/08/17 at 14:30; Status RYLIE COOPER MD May 08, 2017 14:49
--- NOTE | 2017-05-08 16:54 | PN ---
DATE: 05/08/2017 CARDIOLOGY PROGRESS NOTE SUBJECTIVE: The patient reports feeling much better, breathing is comfortable. OBJECTIVE: VITAL SIGNS: Temperature 97.8, pulse 96, blood pressure 94/58. NECK: There is no jugular venous distention. LUNGS: Clear. CARDIAC: Regular rate and rhythm. ABDOMEN: Soft. EXTREMITIES: Reveal trace edema bilaterally. MEDICATIONS: Reviewed as per MAR. LABORATORY RESULTS: Reviewed. Potassium noted to be 2.7. ASSESSMENT: 1. Severe ischemic cardiomyopathy status post PCI, are clinically doing better. Intermittent atrial flutter. 2. Severe hypokalemia. At this time, I will give additional potassium to increase potassium prior to discharge. Will discu ss with primary team. Dictated By: CLAYTON JACOBS/ELIAS Conf#: [id number] DID#: [id number]
[2017-05-08] MEDS: glipiZIDE 5 MG TAB PO SCH (17:18)
[2017-05-08] MEDS ORDERED: POTASSIUM CHLORIDE (SR) 20 MEQ TAB PO SCH (21:00)
[2017-05-09] VITALS (10 sets, daily range): BP systolic 90–94; BP diastolic 56–67; PULSE 74–82; RESP 18–20
[2017-05-09] MEDS: ACCU-CHEK XX SCH (02:00)
[2017-05-09] MEDS: INSULIN ASPART [NOVOLOG] 3 ML PEN SC SCH ×6 (08:00→17:14)
[2017-05-09] MEDS: glipiZIDE 5 MG TAB PO SCH ×2 (08:14→17:12)
[2017-05-09] MEDS: ASPIRIN 81 MG TAB PO SCH (08:15)
[2017-05-09] MEDS: CLOPIDOGREL 75 MG TAB PO SCH (08:15)
[2017-05-09] MEDS: FERROUS SULFATE (EC) 325 MG TAB PO SCH (08:16)
[2017-05-09] MEDS: DABIGATRAN 150 MG CAP PO SCH (08:16)
[2017-05-09] MEDS: AMIODARONE 200 MG TAB PO SCH (08:18)
[2017-05-09] MEDS: LINAGLIPTIN 5 MG TABLET PO SCH (08:18)
[2017-05-09] MEDS: FAMOTIDINE 20 MG TAB PO SCH (08:18)
[2017-05-09] MEDS ORDERED: POTASSIUM CHLORIDE 250 ML IVPB SCH (08:30)
--- NOTE | 2017-05-09 08:34 | PN ---
Date/Time of Note Date/Time of Note DATE: 05/09/17 TIME: 08:33 Assessment/Plan VTE Prophylaxis VTE Prophylaxis Intervention: SCD's Lines/Catheters IV Catheter Type (from Nrsg): Central Line Central line still needed: No Urinary Cath still in place: No Assessment/Plan Assessment/Plan Non-ST elevation AK status post intervention with balloon angioplasty and stenting to left subclavian proximal to B[place] takeoff Coronary artery disease with history of CABG Ischemic cardiomyopathy with ejection fraction 25% and history of ICD Diabetes, uncontrolled Atrial fibrillation/flutter, paroxysmal, on anticoagulation 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 -Continue cv meds -on AC for afib/flutter -decrease amio to 200mg dialy and stop asa when discharged -d/c planning Subjective 24 Hr Interval Summary Free Text/Dictation The patient with no change, ambulating Exam/Review of Systems Vital Signs Vitals Vital Signs Date Time Temp Pulse Resp B/P Pulse Ox O2 Delivery O2 Flow Rate FiO2 05/09/17 08:27 79 05/09/17 07:43 98.6 19 91/61 100 Intake and Output 05/08/17 05/08/17 05/09/17 14:59 22:59 06:59 Intake Total 550 ml 700 ml Balance 550 ml 700 ml Results Result Diagram: 05/08/1761905/08/171999 Results 24 hrs Laboratory Tests Test 05/08/17 10:52 05/08/17 11:35 05/08/17 17:16 05/08/17 20:00 Potassium Level 2.7 *L 2.9 *L Magnesium Level 1.9 Bedside Glucose 223 H 173 Test 05/08/17 20:58 05/09/17 07:45 Bedside Glucose 157 128 Medications Medications Current Medications Aspirin (Aspirin) 81 mg DAILY PO Last administered on 05/09/17 08:15; Admin Dose 81 MG; Start 04/28/17 at 09:00 Ferrous Sulfate (Ferrous Sulfate (Ec)) 325 mg BID PO Last administered on 08:16; Admin Dose 325 MG; Start 04/27/17 at 21:00 Ondansetron HCl (Zofran Inj) 4 mg Q6H PRN IV NAUSEA AND/OR VOMITING; Start at 17:00 Nitroglycerin (Nitroglycerin (Sl Tab) 0.4 Mg) 1 tab Q5M PRN SL CHEST PAIN; Start 04/27/17 at 17:00 Acetaminophen (Tylenol Tab) 650 mg Q6H PRN PO PAIN LEVEL 1-3 OR FEVER; Start at 17:00 Morphine Sulfate (morphine) 2 mg Q4H PRN IV PAIN LEVEL 7-10 Last administered on 04/27/17 17:15; Admin Dose 2 MG; Start 04/27/17 at 17:00 Docusate Sodium (Colace) 100 mg Q12H PRN PO CONSTIPATION; Start 04/27/17 at 17: 00 Magnesium Hydroxide (Milk Of Mag) 30 ml DAILY PRN PO CONSTIPATION; Start at 17:00 Bisacodyl (Dulcolax Supp) 10 mg DAILY PRN [place] CONSTIPATION; Start 04/27/17 at 17 :00 Famotidine (Pepcid) 20 mg Q12 PO Last administered on 05/09/17 08:18; Admin Dose 20 MG; Start 04/27/17 at 21:00 Clopidogrel Bisulfate (plaVIX) 75 mg DAILY PO Last administered on 05/09/17 08 :15; Admin Dose 75 MG; Start 04/28/17 at 09:00 Miscellaneous Information 1 ea NOTE XX ; Start 04/27/17 at 23:45 Glucose (Glutose) 15 gm Q15M PRN PO DECREASED GLUCOSE; Start 04/27/17 at 23:45 Glucose (Glutose) 22.5 gm Q15M PRN PO DECREASED GLUCOSE; Start 04/27/17 at 23: 45 Dextrose (D50w Syringe) 25 ml Q15M PRN IV DECREASED GLUCOSE; Start 04/27/17 at 23:45 Dextrose (D50w Syringe) 50 ml Q15M PRN IV DECREASED GLUCOSE; Start 04/27/17 at 23:45 Glucagon (Glucagen) 1 mg Q15M PRN IM DECREASED GLUCOSE; Start 04/27/17 at 23:45 Glucose (Glutose) 15 gm Q15M PRN BUCCAL DECREASED GLUCOSE; Start 04/27/17 at 23 :45 Diagnostic Test (Pha) (Accu-Chek) 1 ea 02 XX Last administered on 05/04/17 17: 27; Admin Dose 1 EA; Start 04/29/17 at 02:00 Dabigatran (PRADaxa) 150 mg BID PO Last administered on 05/09/17 08:16; Admin Dose 150 MG; Start 04/28/17 at 21:00 Linagliptin (Tradjenta) 5 mg DAILY PO Last administered on 05/09/17 08:18; Admin Dose 5 MG; Start 04/29/17 at 10:00 Acetazolamide (Diamox) 250 mg DAILY PO Last administered on 05/09/17 08:17; Admin Dose 250 MG; Start 05/09/17 at 09:00 Amiodarone HCl (Cordarone) 200 mg BID PO Last administered on 05/09/17 08:18; Admin Dose 200 MG; Start 05/08/17 at 21:00 Furosemide (Lasix) 40 mg DAILY PO Last administered on 05/09/17 08:18; Admin Dose 40 MG; Start 05/09/17 at 09:00 Metolazone (Zaroxolyn) 2.5 mg DAILY PO Last administered on 05/09/17 08:14; Admin Dose 2.5 MG; Start 05/09/17 at 09:00 Spironolactone (Aldactone) 25 mg DAILY PO Last administered on 05/09/17 08:16 ; Admin Dose 25 MG; Start 05/09/17 at 09:00 Potassium Chloride 40 meq 40 meq ONCE PO Last administered on 05/08/17 20:51; Admin Dose 40 MEQ; Start 05/08/17 at 21:00; Stop 05/09/17 at 20:59 Potassium Chloride (KCl 40 MEQ/250 ML NS) 250 ml @ 62.5 mls/hr Q4H IVPB ; Start 05/09/17 at 08:30; Stop 05/09/17 at 16:29 TAYA MATAMOROS MD May 09, 2017 08:34
[2017-05-09 08:39] LABS: CALCIUM 9.4 mg/dl (8.4-10.2); CREATININE 0.87 mg/dl (0.61-1.24); POTASSIUM 3.3 mmol/L (3.5-5.1)
[2017-05-09] MEDS ORDERED: METOLAZONE 2.5 MG TAB PO SCH (09:00)
[2017-05-09] MEDS ORDERED: SPIRONOLACTONE 25 MG TAB PO SCH (09:00)
[2017-05-09] MEDS ORDERED: FUROSEMIDE 40 MG TAB PO SCH (09:00)
[2017-05-09] MEDS ORDERED: ACETAZOLAMIDE 250 MG TAB PO SCH (09:00)
[2017-05-09 09:05] LABS: ALBUMIN 4.1 g/dl (3.3-4.9); BILIRUBIN,INDIRECT 0.6 mg/dl (0-1.1); BILIRUBIN,TOTAL 0.6 mg/dl (0.2-1.3); TOTAL PROTEIN 7.6 g/dl (6.1-8.1)
[2017-05-09] MEDS: POTASSIUM CHLORIDE (SR) 20 MEQ TAB PO SCH ×2 (10:51→14:36)
--- NOTE | 2017-05-09 12:29 | PN ---
Date/Time of Note Date/Time of Note DATE: 05/09/17 TIME: 12:26 Assessment/Plan VTE Prophylaxis VTE Prophylaxis Intervention: contraindicated Lines/Catheters IV Catheter Type (from Nrsg): Central Line Central line still needed: No Urinary Cath still in place: No Assessment/Plan Assessment/Plan 1. cards: NSTEMI (b) pci to prox L subclavian (c) ischemic cardiomyopathy (d) paroxsymal a fib, cont brilinta and anticoag 2. dm 3. d.c home Subjective 24 Hr Interval Summary Free Text/Dictation no complaints, no sob, eating and ambulating Exam/Review of Systems Vital Signs Vitals Vital Signs Date Time Temp Pulse Resp B/P Pulse Ox O2 Delivery O2 Flow Rate FiO2 05/09/17 12:11 74 05/09/17 11:46 98.0 19 90/56 100 Intake and Output 05/08/17 05/08/17 05/09/17 15:00 23:00 07:00 Intake Total 550 ml 700 ml Balance 550 ml 700 ml Exam Constitutional: alert Respiratory: clear to auscultation Cardiovascular: regular rate and rhythm Gastrointestinal: non-tender, soft Results Result Diagram: 05/08/17 0620 05/09/17 0705 Results 24 hrs Laboratory Tests Test 05/08/17 17:16 05/08/17 20:00 05/08/17 20:58 05/09/17 07:05 Bedside Glucose 173 157 Potassium Level 2.9 *L 3.3 L Sodium Level 130 L Chloride Level 96 L Carbon Dioxide Level 24 Anion Gap 13 Blood Urea Nitrogen 20 Creatinine 0.87 Glucose Level 122 Calcium Level 9.4 Magnesium Level 1.9 Total Bilirubin 0.6 Direct Bilirubin 0.00 Indirect Bilirubin 0.6 Aspartate Amino Transf (AST/SGOT) 150 #H Alanine Aminotransferase (ALT/SGPT) 315 H Alkaline Phosphatase 314 H Total Protein 7.6 Albumin 4.1 Test 05/09/17 07:45 Bedside Glucose 128 Medications Medications Current Medications Ferrous Sulfate (Ferrous Sulfate (Ec)) 325 mg BID PO Last administered on t 08:16; Admin Dose 325 MG; Start 04/27/17 at 21:00 Ondansetron HCl (Zofran Inj) 4 mg Q6H PRN IV NAUSEA AND/OR VOMITING; Start at 17:00 Nitroglycerin (Nitroglycerin (Sl Tab) 0.4 Mg) 1 tab Q5M PRN SL CHEST PAIN; Start 04/27/17 at 17:00 Acetaminophen (Tylenol Tab) 650 mg Q6H PRN PO PAIN LEVEL 1-3 OR FEVER; Start at 17:00 Morphine Sulfate (morphine) 2 mg Q4H PRN IV PAIN LEVEL 7-10 Last administered on 04/27/17 17:15; Admin Dose 2 MG; Start 04/27/17 at 17:00 Docusate Sodium (Colace) 100 mg Q12H PRN PO CONSTIPATION; Start 04/27/17 at 17: 00 Magnesium Hydroxide (Milk Of Mag) 30 ml DAILY PRN PO CONSTIPATION; Start at 17:00 Bisacodyl (Dulcolax Supp) 10 mg DAILY PRN [place] CONSTIPATION; Start 04/27/17 at 17 :00 Famotidine (Pepcid) 20 mg Q12 PO Last administered on 05/09/17 08:18; Admin Dose 20 MG; Start 04/27/17 at 21:00 Clopidogrel Bisulfate (plaVIX) 75 mg DAILY PO Last administered on 05/09/17 08 :15; Admin Dose 75 MG; Start 04/28/17 at 09:00 Miscellaneous Information 1 ea NOTE XX ; Start 04/27/17 at 23:45 Glucose (Glutose) 15 gm Q15M PRN PO DECREASED GLUCOSE; Start 04/27/17 at 23:45 Glucose (Glutose) 22.5 gm Q15M PRN PO DECREASED GLUCOSE; Start 04/27/17 at 23: 45 Dextrose (D50w Syringe) 25 ml Q15M PRN IV DECREASED GLUCOSE; Start 04/27/17 at 23:45 Dextrose (D50w Syringe) 50 ml Q15M PRN IV DECREASED GLUCOSE; Start 04/27/17 at 23:45 Glucagon (Glucagen) 1 mg Q15M PRN IM DECREASED GLUCOSE; Start 04/27/17 at 23:45 Glucose (Glutose) 15 gm Q15M PRN BUCCAL DECREASED GLUCOSE; Start 04/27/17 at 23 :45 Diagnostic Test (Pha) (Accu-Chek) 1 ea 02 XX Last administered on 05/04/17 17: 27; Admin Dose 1 EA; Start 04/29/17 at 02:00 Dabigatran (PRADaxa) 150 mg BID PO Last administered on 05/09/17 08:16; Admin Dose 150 MG; Start 04/28/17 at 21:00 Linagliptin (Tradjenta) 5 mg DAILY PO Last administered on 05/09/17 08:18; Admin Dose 5 MG; Start 04/29/17 at 10:00 Acetazolamide (Diamox) 250 mg DAILY PO Last administered on 05/09/17 08:17; Admin Dose 250 MG; Start 05/09/17 at 09:00 Furosemide (Lasix) 40 mg DAILY PO Last administered on 05/09/17 08:18; Admin Dose 40 MG; Start 05/09/17 at 09:00 Metolazone (Zaroxolyn) 2.5 mg DAILY PO Last administered on 05/09/17 08:14; Admin Dose 2.5 MG; Start 05/09/17 at 09:00 Spironolactone (Aldactone) 25 mg DAILY PO Last administered on 05/09/17 08:16 ; Admin Dose 25 MG; Start 05/09/17 at 09:00 Potassium Chloride (Klor-Con 20) 40 meq ONCE PO Last administered on 05/08/17 20:51; Admin Dose 40 MEQ; Start 05/08/17 at 21:00; Stop 05/09/17 at 20:59 Amiodarone HCl (Cordarone) 200 mg QHS PO ; Start 05/09/17 at 21:00 Potassium Chloride (Klor-Con 20) 40 meq Q4H PO Last administered on 05/09/17 10:51; Admin Dose 40 MEQ; Start 05/09/17 at 10:30; Stop 05/09/17 at 15:30 JOSHUA CERON MD May 09, 2017 12:29
--- NOTE | 2017-05-09 12:30 | PDOCDIS ---
Discharge Instructions CONDITION Patient Condition: Fair HOME CARE INSTRUCTIONS: Diet Instructions: 2gm NaSpecial Diet: CARB CONTROLLED ACTIVITY: Activity Restrictions: Slowly Increase Activity JOSHUA CERON MD May 09, 2017 12:30
[2017-05-09] MEDS ORDERED: LINA5TAB PO (12:35)
[2017-05-09] MEDS ORDERED: SPIR25TA PO (12:35)
[2017-05-09] MEDS ORDERED: POTA20TA15 PO (12:35)
[2017-05-09] MEDS ORDERED: FURO40TA4 PO (12:35)
[2017-05-09] MEDS ORDERED: METO2.5T12 PO (12:35)
[2017-05-09] MEDS ORDERED: CLOP75TA28 PO (12:40)
[2017-05-09] MEDS ORDERED: AMIODARONE 200 MG TAB PO SCH (21:00)
== END 2017-05-09 17:46 | disposition home or self-care (01) | DRG 252 ==
LOC: E/R 14:20 → CCL 17:24 → ICU 21:55 → MS4 04-29 10:27 → ICU 04-29 20:35 → MS4 05-02 01:16
PROVIDERS: ADMIT Internal Medicine; ATTEND Internal Medicine
PROC: 4A023N7 Measurement of Cardiac Sampling and Pressure, Left Heart, Percutaneous Approach (ICD-10-PCS; 2017-04-27)
PROC: B211YZZ Fluoroscopy of Multiple Coronary Arteries using Other Contrast (ICD-10-PCS; 2017-04-27)
PROC: B213YZZ Fluoroscopy of Multiple Coronary Artery Bypass Grafts using Other Contrast (ICD-10-PCS; 2017-04-27)
PROC: B218YZZ Fluoroscopy of Left Internal Mammary Bypass Graft using Other Contrast (ICD-10-PCS; 2017-04-27)
PROC: 03743DZ Dilation of Left Subclavian Artery with Intraluminal Device, Percutaneous Approach (ICD-10-PCS; principal; 2017-04-27 17:30)
PROC: 02H633Z Insertion of Infusion Device into Right Atrium, Percutaneous Approach (ICD-10-PCS; 2017-04-29)
DX: I21.4 Non-ST elevation (NSTEMI) myocardial infarction (principal); I50.43 Acute on chronic combined systolic (congestive) and diastolic (congestive) heart failure; I95.89 Other hypotension; E87.1 Hypo-osmolality and hyponatremia; E11.65 Type 2 diabetes mellitus with hyperglycemia; I48.92 Unspecified atrial flutter; I48.0 Paroxysmal atrial fibrillation; E78.5 Hyperlipidemia, unspecified; I25.5 Ischemic cardiomyopathy; I70.8 Atherosclerosis of other arteries; E87.6 Hypokalemia; I25.10 Atherosclerotic heart disease of native coronary artery without angina pectoris; I11.0 Hypertensive heart disease with heart failure; I73.9 Peripheral vascular disease, unspecified; Z95.1 Presence of aortocoronary bypass graft; Z95.5 Presence of coronary angioplasty implant and graft; Z95.810 Presence of automatic (implantable) cardiac defibrillator
CPT/HCPCS: 36415; 36600; 71010; 71250; 75960; 76705; 80048; 80053; 80061; 80076; 81001; 82247; 82248; 82550; 82553; 82803; 82962; 83036; 83605; 83735; 83880; 84100; 84132; 84439; 84443; 84484; 85025; 85610; 85730; 86704; 86709; 86803; 87081; 87086; 87340; 93005; 93306; 93459; 96372; 96374; J1940; C1725; C1760; C1769; C1875; C1887; C1894; J1644; J1815; J2250; J2270; J3010; J3475; J3480; J7030; J7040; J7060; Q9967